=== PATIENT | female | born 1950 | race Hispanic/Latino ===

== ENCOUNTER 2016-11-02 12:08 | Inpatient (IN) | payer MEDICARE, OTHER ==
[2016-11-02 12:20] VITALS: BMI 21.7
--- NOTE | 2016-11-02 13:00 | C.PDOC ---
History Of Present Illness 66-YEAR-OLD FEMALE, PRESENTS TO THE EMERGENCY DEPARTMENT WITH COMPLAINTS OF WORSENING SHORTNESS OF BREATH X SEVERAL WEEKS. PATIENT STATES SHE SAW DR LINTON FOR SAME, STARTED LASIX 40 MG BID X 10 DAYS, FINISHED 1 WEEK AGO. PATIENT STATES SHE HAD SOB AND LEG SWELLING. SWELLING NOW IMPROVED "BUT I THINK IT'S COMING BACK" BUT STILL W HIG[place]/SOB. NO FEVER, COUGH, CP. HO LUNG CA, COPD, CHF. PS DOESNT USE HOME O2 BUT "FEELS MUCH BETTER LIKE NORMAL" W CURRENT O2 USE. EXAM MILD DIST NONTOXIC LUNGS B/L BASILAR RALES NO RETRACTIONS SPEAKING FULL SENTENCES 100% ON 4L +2 EDEMA B/L LE REMAINDE RNEG PMD DR RADHA RENO Time Seen by Provider: 11/02/16 12:32 Chief Complaint (Nursing): Shortness Of Breath History Per: Patient History/Exam Limitations: no limitations Past Medical History Reviewed: Historical Data, Nursing Documentation, Vital Signs Vital Signs: Last Vital Signs Temp 98.3 F 11/04/16 08:38 Pulse 106 H 11/04/16 08:38 Resp 26 H 11/04/16 08:38 BP 116/71 11/04/16 08:38 Pulse Ox 99 11/04/16 08:38 - Medical History PMH: Arthritis, Asthma, Bronchitis, COPD, Emphysema, Hypercholesterolemia, Hypothyroidism Surgical History: Tonsillectomy (1961) - [facility] Procedures CHEST CAGE BONE BIOPSY (11/15/13) CLOSED [PERCUTANEOUS] [NEEDLE] BIOPSY OF LUNG (05/24/13) FIBER-OPTIC BRONCHOSCOPY (08/25/13) INSERT INTERCOSTAL CATH (08/25/13) LYMPHATIC STRUCT BIOPSY (08/25/13) THORACOSCOPIC EXCISION OF LESION OR TISSUE OF LUNG (08/25/13) Family History: States: Unknown Family Hx - Social History Hx Alcohol Use: No Hx Substance Use: No - Immunization History Hx Tetanus Toxoid Vaccination: No Hx Influenza Vaccination: No Hx Pneumococcal Vaccination: No Review Of Systems Except As Marked, All Systems Reviewed And Found Negative. Constitutional: Negative for: Fever Cardiovascular: Positive for: Edema. Negative for: Chest Pain, Palpitations Respiratory: Positive for: Shortness of Breath Gastrointestinal: Negative for: Vomiting Physical Exam - Physical Exam Appears: Non-toxic, No Acute Distress Skin: Warm, Dry, No Rash Eye(s): bilateral: Normal Inspection, PERRL, EOMI Oral Mucosa: Moist Lips: Normal Appearing Neck: Normal ROM Chest: Symmetrical Cardiovascular: Rhythm Regular, No Murmur Respiratory: Rales, Other (B/L BASILAR RALES NO RETRACTIONS SPEAKING FULL SENTENCES 100% ON 4L) Extremity: Pedal Edema (2+ B/L) ED Course And Treatment - Laboratory Results Result Diagrams: 11/03/16 15:12 11/02/16 13:07 ECG: Interpreted By Me ECG Rhythm: Sinus Tachycardia Rate From EC O2 Sat by Pulse Oximetry: 100 Progress - Re-Evaluation Re-evaluation Note: 11/02/16 13:00 93% ON RA, +TACHYPNEA AND FEELING SOB. 11/02/16 13:22 D/W DR Keira RENO C/F PMD WILL ADMIT - Data Reviewed Data Reviewed: Lab, Diagnostic imaging, EKG, Old records - Critical Care Citical Care: Excluding Proc Time Critical Care Time: 90 minutes - Continuity of Care Discussed patient case with:: Patient, Family-HIPPA compliant, Covering for PMD Disposition Counseled Patient/Family Regarding: Studies Performed, Diagnosis - Disposition Disposition: HOSPITALIZED Disposition Time: 13:26 Condition: SERIOUS - POA Present On Arrival: None - Clinical Impression Clinical Impression: Respiratory distress, Dyspnea, Hypoxia, CHF exacerbation, Lung cancer - Scribe Statement The provider has reviewed the documentation as recorded by the Cat GIPSON All medical record entries made by the Sharynibe were at my direction and personally dictated by me. I have reviewed the chart and agree that the record accurately reflects my personal performance of the history, physical exam, medical decision making, and the department course for this patient. I have also personally directed, reviewed, and agree with the discharge instructions and disposition. Decision To Admit - Pt Status Changed To: Hospital Disposition Of: Inpatient - Admit Certification Admit to Inpatient:: After my assessment, the patient will require hospitalization for at least two midnights. This is because of the severity of symptoms shown, intensity of services needed, and/or the medical risk in this patient being treated as an outpatient. - InPatient: Physician Admission Certification: I certify that this patient requires 2 or more midnights of care for the following reason:: SEE NOTE - . Bed Request Type: Telemetry Admitting Physician: Jayeshkuma S Reno Patient Diagnosis: Respiratory distress, Dyspnea, Hypoxia, CHF exacerbation, Lung cancer
[2016-11-02 13:16] LABS: BASO % 0.6 % (0.0-2.0); EOS % 2.3 % (0.0-4.0); HEMATOCRIT 20.9 % (34.0-47.0); LYMPH # 0.3 K/uL (1.0-4.3); LYMPH % 42.3 % (20.0-40.0); MEAN CORPUSCULAR HEMOGLOBIN 32.7 pg (27.0-31.0); MEAN CORPUSCULAR HGB CONC 32.9 g/dL (33.0-37.0); MEAN PLATELET VOLUME 6.3 fL (7.2-11.7); MONO # 0.2 K/uL (0.0-0.8); MONO % 38.4 % (0.0-10.0); NRBC % 0.4 % (0.0-2.0); PLATELET COUNT 203 K/uL (130-400); RED CELL DISTRIBUTION WIDTH 16.8 % (11.5-14.5)
[2016-11-02] MEDS ORDERED: cefTRIAXone IV 1 gm in Dextros 50 ML IV STA (13:17)
[2016-11-02] MEDS ORDERED: Azithromycin 500 MG in Sodium Chloride 0.9% 250 ML IV STA ×2 (13:17→16:50)
[2016-11-02 13:21] LABS: MEAN CELL VOLUME 99.5 fL (81.0-99.0); WHITE BLOOD COUNT 0.6 K/uL (4.8-10.8)
[2016-11-02 13:23] LABS: CHLORIDE 95 mmol/L (98-107); POTASSIUM 4.2 mmol/L (3.6-5.2); SODIUM 135 mmol/L (132-148)
[2016-11-02 13:25] LABS: GFR AFRICAN-AMERICAN 45
[2016-11-02 13:26] LABS: ALB/GLOB RATIO 0.8 (1.0-2.1); ALKALINE PHOSPHATASE 56 U/L (38-126); ALT/SGPT 25 U/L (9-52); AST/SGOT 31 U/L (14-36); BILIRUBIN,TOTAL 0.4 mg/dL (0.2-1.3); BLOOD UREA NITROGEN 27 mg/dL (7-17); CARBON DIOXIDE 31 mmol/L (22-30); GLUCOSE,RANDOM 76 mg/dL (65-105); TOTAL PROTEIN 7.1 g/dL (6.3-8.3)
[2016-11-02 13:27] LABS: CALCIUM 8.4 mg/dl (8.6-10.4)
[2016-11-02] MEDS ORDERED: cefTRIAXone IV 1 gm in Dextros 50 ML IVPB ONE (13:35)
[2016-11-02 14:10] LABS: EOSINOPHIL 4 % (0-4); NEUTROPHIL 12 % (50-75); TOTAL CELLS COUNTED 50
[2016-11-02 14:10] LABS: VENOUS BLOOD GAS BASE EXCESS 5.6 mmol/L (0.0-2.0); VENOUS BLOOD GAS PCO2 62 mmHg (40-60); VENOUS BLOOD PH 7.34 (7.32-7.43)
--- NOTE | 2016-11-02 14:31 | RAD ---
PROCEDURE: CHEST RADIOGRAPH, 1 VIEW HISTORY: Shortness of breath COMPARISON: 08/27/2013 FINDINGS: LUNGS: Moderate loculated right pleural effusion. Lobulated pleural thickening along the right darnell thorax. Elevated right hemidiaphragm. Consolidative changes in the right mid to lower lung zone. Mild venous congestion. PLEURA: As above. CARDIOVASCULAR: Cardiomegaly. OSSEOUS STRUCTURES: Degenerative changes in the spine and shoulders VISUALIZED UPPER ABDOMEN: Grossly preserved. OTHER FINDINGS: Surgical clips in the right axilla. Left central venous catheter tip extending to the cavoatrial junction. IMPRESSION: Moderate loculated right pleural effusion. Lobulated pleural thickening along the right darnell thorax. Elevated right hemidiaphragm. Consolidative changes in the right mid to lower lung zone. Mild venous congestion.
[2016-11-02] MEDS ORDERED: Albuterol-Ipratrop 3 mg / 0.5 (3 ml) UD INH PRN (14:43)
[2016-11-02] MEDS ORDERED: Acetaminophen-Codeine 300/30 mg Tab PO PRN (14:43)
[2016-11-02] MEDS ORDERED: Albuterol-Ipratrop 20 mcg/actuation (4 g) IH PRN (14:43)
[2016-11-02 14:46] LABS: RBC URINE 1 /hpf (0-3); URINE BILIRUBIN NEGATIVE (NEGATIVE); URINE BLOOD NEGATIVE (NEGATIVE); URINE COLOR Straw (YELLOW); URINE GLUCOSE (UA) NORMAL (Normal); URINE KETONE NEGATIVE (NEGATIVE); URINE LEUKOCYTE ESTERASE NEG Leu/uL (Negative); URINE PROTEIN NEGATIVE (NEGATIVE); URINE UROBILINOGEN NORMAL mg/dL (0.2-1.0); WBC URINE < 1 /hpf (0-5)
--- NOTE | 2016-11-02 15:07 | CP.PCM.CON ---
History of Present Illness - History of Present Illness History of Present Illness: 66 year old with lung CA followed by onc. presented with SOB, leg edema, for echo Review of Systems - Review of Systems Systems not reviewed;Unavailable: Acuity of Condition - Constitutional Constitutional: Anorexia, Weakness - EENT Eyes: absent: Discharge Ears: absent: Ear Discharge, Dizziness Nose/Mouth/Throat: absent: Epistaxis - Cardiovascular Cardiovascular: Chest Pain, Dyspnea. absent: Acrocyanosis, Diaphoresis, Palpitations, Syncope - Respiratory Respiratory: Cough, Dyspnea. absent: Hemoptysis - Gastrointestinal Gastrointestinal: absent: Abdominal Pain, Diarrhea, Vomiting - Genitourinary Genitourinary: absent: Change in Urinary Stream Past Patient History - Past Medical History & Family History Past Medical History?: Yes - Past Social History Smoking Status: Former Smoker - CARDIAC Hx Hypercholesterolemia: Yes - PULMONARY Hx Asthma: Yes Hx Bronchitis: Yes Hx Chronic Obstructive Pulmonary Disease (COPD): Yes Hx Emphysema: Yes - NEUROLOGICAL Hx Alzheimer's Disease: No Hx Dementia: No Hx Migraine: No Hx Multiple Sclerosis: No Hx Parkinson's Disease: No Hx Seizures: No Hx Transient Ischemic Attacks (TIA): No - HEENT Hx HEENT Problems: Yes Hx Blind: No Hx Cataracts: Yes (IOL b/l) - RENAL Hx Chronic Kidney Disease: No - ENDOCRINE/METABOLIC Hx Hypothyroidism: Yes - HEMATOLOGICAL/ONCOLOGICAL Hx Blood Transfusions: No Hx Blood Transfusion Reaction: No - INTEGUMENTARY Hx Dermatological Problems: No - MUSCULOSKELETAL/RHEUMATOLOGICAL Hx Arthritis: Yes - GASTROINTESTINAL Hx Gastrointestinal Disorders: No - GENITOURINARY/GYNECOLOGICAL Hx Genitourinary Disorders: No - PSYCHIATRIC Hx Substance Use: No - SURGICAL HISTORY Hx Tonsillectomy: Yes (1961) - ANESTHESIA Hx Anesthesia Reactions: Yes (n/v) Hx Malignant Hyperthermia: No Meds Allergies/Adverse Reactions: Allergies Allergy/AdvReac Type Severity Reaction Status Date / Time SYNTHROID(COMPOUND) Allergy Severe RASH Uncoded 05/18/13 09:08 surgical tape Allergy Intermediate blisters Uncoded 08/10/13 13:06 versed AdvReac Intermediate pt reports Uncoded 08/10/13 13:06 she couldn't wake up after versed - Medications Medications: Current Medications Acetaminophen/Codeine Phosphate (Tylenol/Codeine 300 Mg/30 Mg) 1 ea PO TID PRN PRN Reason: Pain Albuterol/Ipratropium (Combivent Respimat) 2 puff IH QID PRN PRN Reason: Wheezing Albuterol/Ipratropium (Duoneb 3 Mg/0.5 Mg (3 Ml) Ud) 3 ml INH PRN PRN PRN Reason: Wheezing Cyanocobalamin (Vitamin B12 1000 Mcg Tab) 1,000 mcg PO DAILY [facility] Enoxaparin Sodium (Lovenox) 40 mg SC DAILY [facility] Folic Acid (Folic Acid) 1 mg PO DAILY [facility] Furosemide (Lasix) 40 mg IVP BID [place] Home Med (Ascorbic Acid [Vitamin C]) 500 mg PO DAILY [facility] Home Med (Aspirin [Aspirin]) 81 mg PO DAILY [facility] Home Med (Calcium [Calcium 500]) 500 mg PO DAILY [facility] Home Med (Cholecalciferol [Vitamin D3]) 1,000 iu PO DAILY [facility] Home Med (Cu/Mn/Se/Vit A/Vit C/Vit E/Z [Protegra Antioxidant]) 1 cap PO DAILY [facility] Home Med (Flaxseed Oil [Flax Oil]) 1,000 mg PO DAILY [facility] Home Med (Levetiracetam [Levetiracetam]) 500 mg PO HS [facility] Home Med (Theophylline Anhydrous [Sarabjit-24]) 400 mg PO QPM [facility] Home Med (Umeclidinium Brm/Vilanterol Tr [Anoro Ellipta 62.5-25 Mcg Inh]) 1 each IH DAILY [facility] Home Med (Vit C/Vit E/Lutein/Min/[place]-3 [Ocuvite Softgel]) 1 cap PO DAILY [facility] Ceftriaxone Sodium 1 gm/ (Dextrose) 100 mls @ 50 mls/30 min IVPB DAILY [facility] Azithromycin (Zithromax 500mg In Ns Addvantage) 500 mg in 250 mls @ 167 mls/hr IVPB Q24H [place] Levothyroxine Sodium (Synthroid) 100 mcg PO DAILY [facility] Megestrol Acetate (Megace) 40 mg PO BID [place] Rosuvastatin Calcium (Crestor) 10 mg PO QPM [facility] Vitamin E (Vitamin E 400 Units Cap) 400 intlu PO DAILY [facility] Physical Exam - Constitutional Appears: Non-toxic - Head Exam Head Exam: ATRAUMATIC - Eye Exam Eye Exam: EOMI - ENT Exam ENT Exam: Mucous Membranes Moist - Neck Exam Neck exam: Negative for: Lymphadenopathy, Thyromegaly - Respiratory Exam Respiratory Exam: Clear to Auscultation Bilateral, Rhonchi, Wheezes. absent: Rales - Cardiovascular Exam Cardiovascular Exam: REGULAR RHYTHM, Systolic Murmur - GI/Abdominal Exam GI & Abdominal Exam: Normal Bowel Sounds. absent: Organomegaly - Rectal Exam Rectal Exam: Deferred - Extremities Exam Extremities exam: Positive for: normal capillary refill. Negative for: calf tenderness - Neurological Exam Neurological exam: Alert, Oriented x3 - Psychiatric Exam Psychiatric exam: Normal Mood - Skin Skin Exam: Dry Results - Vital Signs Recent Vital Signs: Last Vital Signs Temp 98.0 F 11/02/16 14:31 Pulse 106 H 11/02/16 14:31 Resp 20 11/02/16 14:31 BP 123/80 11/02/16 14:31 Pulse Ox 100 11/02/16 14:31 - Labs Result Diagrams: 11/02/16 13:07 11/02/16 13:07 Labs: Laboratory Results - last 24 hr 11/02/16 11/02/16 11/02/16 14:05 14:25 14:29 pO2 27 L VBG pH 7.34 VBG pCO2 62 H VBG HCO3 27.9 VBG Total CO2 35.3 H VBG O2 Sat (Calc) 48.8 VBG Base Excess 5.6 H VBG Potassium 4.1 Sodium 138.0 Chloride 104.0 Glucose 72 Lactate 0.7 Venous Blood Potassium 4.1 Urine Color Straw Urine Clarity Clear Urine pH 7.0 Ur Specific [place] 1.006 Urine Protein Negative Urine Glucose (UA) Normal Urine Ketones Negative Urine Blood Negative Urine Nitrate Negative Urine Bilirubin Negative Urine Urobilinogen Normal Ur Leukocyte Esterase Neg Urine WBC (Auto) < 1 Urine RBC (Auto) 1 Ur Squamous Epith Cells 2 Blood Type A POSITIVE Assessment & Plan (1) Dyspnea Status: Acute Comment: f/u with echo improved clinically (2) Lung cancer Status: Chronic
--- NOTE | 2016-11-02 15:37 | CP.PCM.CON ---
Past Patient History - Past Medical History & Family History Past Medical History?: Yes - Past Social History Smoking Status: Former Smoker - CARDIAC Hx Hypercholesterolemia: Yes - PULMONARY Hx Asthma: Yes Hx Bronchitis: Yes Hx Chronic Obstructive Pulmonary Disease (COPD): Yes Hx Emphysema: Yes - NEUROLOGICAL Hx Alzheimer's Disease: No Hx Dementia: No Hx Migraine: No Hx Multiple Sclerosis: No Hx Parkinson's Disease: No Hx Seizures: No Hx Transient Ischemic Attacks (TIA): No - HEENT Hx HEENT Problems: Yes Hx Blind: No Hx Cataracts: Yes (IOL b/l) - RENAL Hx Chronic Kidney Disease: No - ENDOCRINE/METABOLIC Hx Hypothyroidism: Yes - HEMATOLOGICAL/ONCOLOGICAL Hx Blood Transfusions: No Hx Blood Transfusion Reaction: No - INTEGUMENTARY Hx Dermatological Problems: No - MUSCULOSKELETAL/RHEUMATOLOGICAL Hx Arthritis: Yes - GASTROINTESTINAL Hx Gastrointestinal Disorders: No - GENITOURINARY/GYNECOLOGICAL Hx Genitourinary Disorders: No - PSYCHIATRIC Hx Substance Use: No - SURGICAL HISTORY Hx Tonsillectomy: Yes (1961) - ANESTHESIA Hx Anesthesia Reactions: Yes (n/v) Hx Malignant Hyperthermia: No Meds Allergies/Adverse Reactions: Allergies Allergy/AdvReac Type Severity Reaction Status Date / Time SYNTHROID(COMPOUND) Allergy Severe RASH Uncoded 05/18/13 09:08 surgical tape Allergy Intermediate blisters Uncoded 08/10/13 13:06 versed AdvReac Intermediate pt reports Uncoded 08/10/13 13:06 she couldn't wake up after versed - Medications Medications: Current Medications Acetaminophen/Codeine Phosphate (Tylenol/Codeine 300 Mg/30 Mg) 1 ea PO TID PRN PRN Reason: Pain Albuterol/Ipratropium (Combivent Respimat) 2 puff IH QID PRN PRN Reason: Wheezing Albuterol/Ipratropium (Duoneb 3 Mg/0.5 Mg (3 Ml) Ud) 3 ml INH PRN PRN PRN Reason: Wheezing Cyanocobalamin (Vitamin B12 1000 Mcg Tab) 1,000 mcg PO DAILY [facility] Enoxaparin Sodium (Lovenox) 40 mg SC DAILY [facility] Folic Acid (Folic Acid) 1 mg PO DAILY [facility] Furosemide (Lasix) 40 mg IVP BID [facility] Home Med (Ascorbic Acid [Vitamin C]) 500 mg PO DAILY [facility] Home Med (Aspirin [Aspirin]) 81 mg PO DAILY [facility] Home Med (Calcium [Calcium 500]) 500 mg PO DAILY [facility] Home Med (Cholecalciferol [Vitamin D3]) 1,000 iu PO DAILY [facility] Home Med (Cu/Mn/Se/Vit A/Vit C/Vit E/Z [Protegra Antioxidant]) 1 cap PO DAILY [place] Home Med (Flaxseed Oil [Flax Oil]) 1,000 mg PO DAILY [place] Home Med (Levetiracetam [Levetiracetam]) 500 mg PO HS [place] Home Med (Theophylline Anhydrous [Sarabjit-24]) 400 mg PO QPM [place] Home Med (Umeclidinium Brm/Vilanterol Tr [Anoro Ellipta 62.5-25 Mcg Inh]) 1 each IH DAILY [facility] Home Med (Vit C/Vit E/Lutein/Min/[place]-3 [Ocuvite Softgel]) 1 cap PO DAILY [place] Ceftriaxone Sodium 1 gm/ (Dextrose) 100 mls @ 50 mls/30 min IVPB DAILY [place] Azithromycin (Zithromax 500mg In Ns Addvantage) 500 mg in 250 mls @ 167 mls/hr IVPB Q24H [place] Levothyroxine Sodium (Synthroid) 100 mcg PO DAILY [place] Megestrol Acetate (Megace) 40 mg PO BID [place] Rosuvastatin Calcium (Crestor) 10 mg PO QPM [place] Vitamin E (Vitamin E 400 Units Cap) 400 intlu PO DAILY [facility] Results - Vital Signs Recent Vital Signs: Last Vital Signs Temp 98.0 F 11/02/16 14:31 Pulse 106 H 11/02/16 14:31 Resp 20 11/02/16 14:31 BP 123/80 11/02/16 14:31 Pulse Ox 100 11/02/16 14:31 - Labs Result Diagrams: 11/02/16 13:07 11/02/16 13:07 Labs: Laboratory Results - last 24 hr 11/02/16 11/02/16 11/02/16 14:05 14:25 14:29 pO2 27 L VBG pH 7.34 VBG pCO2 62 H VBG HCO3 27.9 VBG Total CO2 35.3 H VBG O2 Sat (Calc) 48.8 VBG Base Excess 5.6 H VBG Potassium 4.1 Sodium 138.0 Chloride 104.0 Glucose 72 Lactate 0.7 Venous Blood Potassium 4.1 Urine Color Straw Urine Clarity Clear Urine pH 7.0 Ur Specific [place] 1.006 Urine Protein Negative Urine Glucose (UA) Normal Urine Ketones Negative Urine Blood Negative Urine Nitrate Negative Urine Bilirubin Negative Urine Urobilinogen Normal Ur Leukocyte Esterase Neg Urine WBC (Auto) < 1 Urine RBC (Auto) 1 Ur Squamous Epith Cells 2 Blood Type A POSITIVE Antibody Screen Negative
[2016-11-02] MEDS ORDERED: THEOPHYLLINE ANHYDROUS 400 MG PO SCH (18:00)
[2016-11-02] MEDS: Theophylline 200mg ER 24 hrs Cap PO SCH (21:00)
--- NOTE | 2016-11-02 21:14 | CP.PCM.HP ---
Past Patient History - Past Medical History & Family History Past Medical History?: Yes - Past Social History Smoking Status: Former Smoker - CARDIAC Hx Hypercholesterolemia: Yes - PULMONARY Hx Asthma: Yes Hx Bronchitis: Yes Hx Chronic Obstructive Pulmonary Disease (COPD): Yes Hx Emphysema: Yes - NEUROLOGICAL Hx Alzheimer's Disease: No Hx Dementia: No Hx Migraine: No Hx Multiple Sclerosis: No Hx Parkinson's Disease: No Hx Seizures: No Hx Transient Ischemic Attacks (TIA): No - HEENT Hx HEENT Problems: Yes Hx Blind: No Hx Cataracts: Yes (IOL b/l) - RENAL Hx Chronic Kidney Disease: No - ENDOCRINE/METABOLIC Hx Hypothyroidism: Yes - HEMATOLOGICAL/ONCOLOGICAL Hx Blood Transfusions: No Hx Blood Transfusion Reaction: No - INTEGUMENTARY Hx Dermatological Problems: No - MUSCULOSKELETAL/RHEUMATOLOGICAL Hx Arthritis: Yes - GASTROINTESTINAL Hx Gastrointestinal Disorders: No - GENITOURINARY/GYNECOLOGICAL Hx Genitourinary Disorders: No - PSYCHIATRIC Hx Substance Use: No - SURGICAL HISTORY Hx Tonsillectomy: Yes (1961) - ANESTHESIA Hx Anesthesia Reactions: Yes (n/v) Hx Malignant Hyperthermia: No Meds Allergies/Adverse Reactions: Allergies Allergy/AdvReac Type Severity Reaction Status Date / Time SYNTHROID(COMPOUND) Allergy Severe RASH Uncoded 05/18/13 09:08 surgical tape Allergy Intermediate blisters Uncoded 08/10/13 13:06 versed AdvReac Intermediate pt reports Uncoded 08/10/13 13:06 she couldn't wake up after versed Results - Vital Signs Recent Vital Signs: Last Vital Signs Temp 97.3 F L 11/02/16 19:49 Pulse 104 H 11/02/16 19:49 Resp 18 11/02/16 19:49 BP 110/70 11/02/16 19:49 Pulse Ox 100 11/02/16 16:34 - Labs Result Diagrams: 11/02/16 13:07 11/02/16 13:07 Labs: Laboratory Results - last 24 hr 11/02/16 11/02/16 11/02/16 14:05 14:25 14:29 pO2 27 L VBG pH 7.34 VBG pCO2 62 H VBG HCO3 27.9 VBG Total CO2 35.3 H VBG O2 Sat (Calc) 48.8 VBG Base Excess 5.6 H VBG Potassium 4.1 Sodium 138.0 Chloride 104.0 Glucose 72 Lactate 0.7 Venous Blood Potassium 4.1 Urine Color Straw Urine Clarity Clear Urine pH 7.0 Ur Specific [place] 1.006 Urine Protein Negative Urine Glucose (UA) Normal Urine Ketones Negative Urine Blood Negative Urine Nitrate Negative Urine Bilirubin Negative Urine Urobilinogen Normal Ur Leukocyte Esterase Neg Urine WBC (Auto) < 1 Urine RBC (Auto) 1 Ur Squamous Epith Cells 2 Blood Type A POSITIVE Antibody Screen Negative
[2016-11-03] MEDS: Enoxaparin 40 mg Syringe SC SCH (09:56)
[2016-11-03] MEDS ORDERED: Levothyroxine 100 MCG TAB PO SCH (10:00)
[2016-11-03] MEDS ORDERED: cefTRIAXone IV 1 gm in Dextros 1 GM in Dextrose 5% In Water 50 ML IVPB SCH (10:00)
[2016-11-03] MEDS ORDERED: VIT E PO SCH ×2 (10:00)
[2016-11-03] MEDS ORDERED: Ergocalciferol 50,000 Intl Units Cap PO SCH (10:00)
[2016-11-03] MEDS ORDERED: LUTEIN PO SCH ×2 (10:00)
[2016-11-03] MEDS ORDERED: VIT C PO SCH ×2 (10:00)
[2016-11-03] MEDS ORDERED: [UNRECOGNIZED DRUG - MIXTURE] PO SCH ×2 (10:00)
[2016-11-03] MEDS ORDERED: Home Med 1 UNIT (Umeclidinium Brm/Vilanterol Tr [Anoro Ellipta 62.5-25 Mcg Inh] 1 EACH) IH SCH ×2 (10:00)
[2016-11-03] MEDS ORDERED: FLAXSEED OIL 1000 MG PO SCH ×2 (10:00)
[2016-11-03] MEDS ORDERED: OMEGA PO SCH ×2 (10:00)
--- NOTE | 2016-11-03 10:59 | CT ---
CT chest History: Lung cancer. Loculated right pleural effusion. Comparison: X-ray dated 08/26/2013 Technique: Multiple contiguous axial images were performed through the chest without the use of intravenous contrast. Subsequently, sagittal and coronal reformatted images were obtained. This CT exam was performed using one or more of the following dose reduction techniques: Automated exposure control, adjustment of the mA and/or kV according to patient size, and/or use of iterative reconstruction technique. Findings: Right lung: Hyperinflation suggestive for COPD and or emphysematous changes. Within the anterior aspect of the right middle lobe, best seen on series 3, image 50 there is a lobulated pleural-based mass/mass like opacity measuring 3.2 x 1.6 centimeters which may represent underlying neoplasm. Clinical correlation and or correlation with soft tissue biopsy may be helpful if clinically indicated. At this level and superior to this level there is a suggestion of postsurgical scarring and or consolidation. Adjacent satellite pulmonary nodules at this level measure up to 5 millimeters as demonstrated on series 3, image 42. More inferiorly small pulmonary nodules measure up to 3 millimeters on series 3, image 46. Diffuse loculated pleural thickening throughout the right darnell thorax extending from the apex to the base. At the base there is a more focal loculated pleural effusion which extends superomedially along the anterior darnell thorax. Ovoid consolidative changes and or loculated pleural thickening of the fissure within the right lung measuring 2.4 x 1.1 centimeters seen on series 3 image 49. Dense consolidative changes at the right lung base suggestive for infiltrate and or atelectasis. 3 millimeter subpleural pulmonary nodule along the fissure within the posterior aspect of the right upper lobe on series 3, image 24. Prominent pleural thickening along the fissure laterally throughout its course. 5 millimeter pulmonary nodule within inferior right middle lobe on series 3, image 61. 4 millimeter pulmonary nodule within the posterior aspect of the right lower lobe on series 3, image 61. 3 millimeter pulmonary nodule within the right lower lobe anteriorly on series 3, image 49. Left lung: Hyperinflation suggestive for COPD and or emphysematous changes. Innumerable pulmonary nodules throughout the visualized left lung for example in the left upper lobe there is a 2.7 centimeter subpleural nodule on series 3, image 39 as well as a 2.2 centimeter nodule more anteriorly within the left upper lobe on series 3 image 49. Additional multiple pulmonary nodules are seen throughout the left upper lobe. In the left lower lobe there are innumerable pulmonary nodules for example on series 3, image 75 more anteriorly in the left lower lobe measuring 2 millimeters and more posteriorly measuring 3 millimeters. These may represent underlying metastatic disease. Clinical correlation. Trachea thru central airways are patent. No significant axillary adenopathy. Calcification and plaque within the aorta. Ascending aorta is mildly prominent measuring up to 3.5 centimeters. Calcification at the aortic arch. A 1.6 centimeter prevascular lymph node noted. Coronary calcifications. Moderate pericardial effusion. As described above there is a moderate loculated right pleural effusion throughout the right darnell thorax. No significant left pleural effusion. 5 millimeter focal fat containing lesion seen within the dome of the liver, indeterminate. If splenule. Mild nodularity of the adrenal glands. Degenerative changes in the spine and shoulders. Prominent ill-defined patchy sclerosis seen within the posterior right 8th and lateral right 8th ribs concerning for sclerotic metastatic disease. Additional minimal patchy sclerosis seen within the posterior right 6th rib, nonspecific. Impression: 1. Within the anterior aspect of the right middle lobe, best seen on series 3, image 50 there is a lobulated pleural-based mass/mass like opacity measuring 3.2 x 1.6 centimeters which may represent underlying neoplasm. Clinical correlation and or correlation with soft tissue biopsy may be helpful if clinically indicated. At this level and superior to this level there is a suggestion of postsurgical scarring and or consolidation. Adjacent satellite pulmonary nodules at this level measure up to 5 millimeters as demonstrated on series 3, image 42. More inferiorly small pulmonary nodules measure up to 3 millimeters on series 3, image 46. 2. Diffuse loculated pleural thickening throughout the right darnell thorax extending from the apex to the base. At the base there is a more focal loculated pleural effusion which extends superomedially along the anterior darnell thorax. 3. Ovoid consolidative changes and or loculated pleural thickening of the fissure within the right lung measuring 2.4 x 1.1 centimeters seen on series 3 image 49. 4. Dense consolidative changes at the right lung base suggestive for infiltrate and or atelectasis. 5. 3 millimeter subpleural pulmonary nodule above. Along the fissure within the posterior aspect of the right upper lobe on series 3, image 24. Prominent pleural thickening along the fissure laterally throughout its course. 5 millimeter pulmonary nodule within inferior right middle lobe on series 3, image 61. 4 millimeter pulmonary nodule within the posterior aspect of the right lower lobe on series 3, image 61. 3 millimeter pulmonary nodule within the right lower lobe anteriorly on series 3, image 49. 6. Innumerable pulmonary nodules throughout the visualized left lung for example in the left upper lobe there is a 2.7 centimeter subpleural nodule on series 3, image 39 as well as a 2.2 centimeter nodule more anteriorly within the left upper lobe on series 3 image 49. Additional multiple pulmonary nodules are seen throughout the left upper lobe. In the left lower lobe there are innumerable pulmonary nodules for example on series 3, image 75 more anteriorly in the left lower lobe measuring 2 millimeters and more posteriorly measuring 3 millimeters. These may represent underlying metastatic disease. Clinical correlation. 7. 1.6 centimeter prevascular lymph node noted. 8. Moderate pericardial effusion. 9. Prominent ill-defined patchy sclerosis seen within the posterior right 8th and lateral right 8th ribs concerning for sclerotic metastatic disease. Additional minimal patchy sclerosis seen within the posterior right 6th rib, nonspecific. Additional findings as above.
[2016-11-03] MEDS: Levothyroxine 50 MCG TAB PO SCH (11:04)
--- NOTE | 2016-11-03 12:39 | CP.PCM.CON ---
History of Present Illness - History of Present Illness History of Present Illness: 66-YEAR-OLD FEMALE, PRESENTS TO THE EMERGENCY DEPARTMENT WITH COMPLAINTS OF WORSENING SHORTNESS OF BREATH X SEVERAL WEEKS. PATIENT STATES SHE SAW DR LINTON FOR SAME, STARTED LASIX 40 MG BID X 10 DAYS, FINISHED 1 WEEK AGO. PATIENT STATES SHE HAD SOB AND LEG SWELLING. SWELLING NOW IMPROVED "BUT I THINK IT'S COMING BACK" BUT STILL W HIGGINBOTHAM/SOB. NO FEVER, COUGH, CP. HO LUNG CA, COPD, CHF. ADMITTED WITH FEBRILE NEUTROPENIA / BI-CYTOPENIA R/O SEPSIS HX LUNG CA S/P RT AND CHEMO - Medical History PMH: Arthritis, Asthma, Bronchitis, COPD, Emphysema, Hypercholesterolemia, Hypothyroidism Surgical History: Tonsillectomy (1961) - [facility] Procedures CHEST CAGE BONE BIOPSY (11/15/13) CLOSED [PERCUTANEOUS] [NEEDLE] BIOPSY OF LUNG (05/24/13) FIBER-OPTIC BRONCHOSCOPY (08/25/13) INSERT INTERCOSTAL CATH (08/25/13) LYMPHATIC STRUCT BIOPSY (08/25/13) THORACOSCOPIC EXCISION OF LESION OR TISSUE OF LUNG (08/25/13) Review of Systems - Constitutional Constitutional: As Per HPI, Anorexia, Chills, Malaise - EENT Eyes: absent: As Per HPI, Blind Spots, Blurred Vision, Change in Vision, Decreased Night Vision, Diplopia, Discharge, Dry Eye, Exophthalmos, Floaters, Irritation, Itchy Eyes, Loss of Peripheral Vision, Pain, Photophobia, Requires Corrective Lenses, Sees Flashes, Spots in Vision, Tunnel Vision, Other Visual Disturbances, Loss of Vision, Other Ears: absent: As Per HPI, Decreased Hearing, Ear Discharge, Ear Pain, Tinnitus, Abnormal Hearing, Disequilibrium, Dizziness, Other Nose/Mouth/Throat: absent: As Per HPI, Epistaxis, Nasal Congestion, Nasal Discharge, Nasal Obstruction, Nasal Trauma, Nose Pain, Post Nasal Drip, Sinus Pain, Sinus Pressure, Bleeding Gums, Change in Voice, Dental Pain, Dry Mouth, Dysphagia, Halitosis, Hoarsness, Lip Swelling, Mouth Lesions, Mouth Pain, Odynophagia, Sore Throat, Throat Swelling, Tongue Swelling, Facial Pain, Neck Pain, Neck Mass, Other - Breasts Breasts: absent: As Per HPI, Change in Shape, Mass, Pain, Nipple Discharge, Nipple Inversion, Skin Changes, Swelling, Other - Cardiovascular Cardiovascular: absent: As Per HPI, Acrocyanosis, Chest Pain, Chest Pain at Rest , Chest Pain with Activity, Claudication, Diaphoresis, Dyspnea, Dyspnea on Exertion, Edema, Irregular Heart Rhythm, Pain Radiating to Arm/Neck/Jaw, Leg Edema, Leg Ulcers, Lightheadedness, Orthopnea, Palpitations, Paroxysmal Nocturnal Dyspnea, Pedal Edema, Radiating Pain, Rapid Heart Rate, Slow Heart Rate, Syncope, Other - Respiratory Respiratory: As Per HPI, Cough, Dyspnea. absent: Hemoptysis - Gastrointestinal Gastrointestinal: absent: As Per HPI, Abdominal Pain, Belching, Bloating, Change in Bowel Habits, Change in Stool Character, Coffee Ground Emesis, Constipation, Cramping, Diarrhea, Dyspepsia, Dysphagia, Early Satiety, Excessive Flatus, Fecal Incontinence, Heartburn, Hematemesis, Hematochezia, Loose Stools, Melena, Nausea, Odynophagia, Temesmus, Vomiting, Other - Genitourinary Genitourinary: absent: As Per HPI, Change in Urinary Stream, Difficulty Urinating, Dysuria, Flank Pain, Hematuria, Pyuria, Nocturia, Urinary Incontinence, Urinary Frequency, Urinary Hesitance, Urinary Urgency, Voiding Freq/Small Amts, Freq UTI, Hx Renal/Bladder Calculi, Hx /Renal Surgery, Bladder Distension, Other - Reproductive: Female Reproductive:Female: absent: As Per HPI, Amenorrhea, Amenorrhea/ Control, Currently Menstual, Cycle <21 Days, Cycle >35 Days, Cycle Variable, Menses 1-7 Days, Menses >/= 8 Days, Menses Variable, Cycle > 4 Weeks Between, No Menses for 6 Months, Heavy Menses, Light Menses, Normal Menses, Spotting Between Cycles , S/P Hysterectomy, Menopausal, Post Menopausal, Premenarche, Abnormal Vaginal Bleeding, Dysmenorrhea, Dyspareunia, Genital Lesions, Genital Pruritis, Pelvic Pain, Prolapse Symptoms, Sexual Dysfunction, Vaginal Discharge, Vaginal Dryness , Vaginal Odor, Vaginal Pruritis, Other - Menstruation Menstruation: absent: As Per HPI, Amenorrhea, Amenorrhea/ Control, Currently Menstual, Cycle <21 Days, Cycle >35 Days, Cycle Variable, Menses 1-7 Days, Menses >/= 8 Days, Menses Variable, Cycle > 4 Weeks Between, No Menses for 6 Months, Heavy Menses, Light Menses, Normal Menses, Spotting Between Cycles , S/P Hysterectomy, Menopausal, Post Menopausal, Premenarche, Abnormal Vaginal Bleeding, Dysmenorrhea, Other - Musculoskeletal Musculoskeletal: As Per HPI - Integumentary Integumentary: As Per HPI - Neurological Neurological: absent: As Per HPI, Abnormal Gait, Abnormal Hearing, Abnormal Movements, Abnormal Speech, Behavioral Changes, Burning Sensations, Confusion, Convulsions, Disequilibrium, Dizziness, Numbness, Focal Weakness, Frequent Falls , Headaches, Lack of Coordination, Loss of Vision, Memory Loss, Paresthesias, Radicular Pain, Restless Legs, Sensory Deficit, Syncope, Tingling, Tremor, Vertigo, Weakness, Other Visual Disturbances, Other - Psychiatric Psychiatric: absent: As Per HPI, Abnormal Sleep Pattern, Anhedonia, Anxiety, Auditory Hallucinations, Behavioral Changes, Change in Appetite, Change in Libido, Confusion, Depression, Difficulty Concentrating, Hallucinations, Homicidal Ideation, Hopelessness, Irritability, Memory Loss, Mood Swings, Panic Attacks, Paranoia, Suicidal Ideation, Visual Hallucinations, Tactile Hallucinations, Other - Endocrine Endocrine: absent: As Per HPI, Change in Body Appearance, Change in Libido, Cold Intolorance, Deepening of Voice, Excessive Sweating, Fatigue, Flushing, Heat Intolorance, Increase in Ring/Shoe/Hat Size, Palpitations, Polydipsia, Polyphagia, Polyuria, Other - Hematologic/Lymphatic Hematologic: absent: As Per HPI, Easy Bleeding, Easy Bruising, Lymphadenopathy, Other Past Patient History - Past Medical History & Family History Past Medical History?: Yes - Past Social History Smoking Status: Former Smoker - CARDIAC Hx Hypercholesterolemia: Yes - PULMONARY Hx Asthma: Yes Hx Bronchitis: Yes Hx Chronic Obstructive Pulmonary Disease (COPD): Yes Hx Emphysema: Yes - NEUROLOGICAL Hx Alzheimer's Disease: No Hx Dementia: No Hx Migraine: No Hx Multiple Sclerosis: No Hx Parkinson's Disease: No Hx Seizures: No Hx Transient Ischemic Attacks (TIA): No - HEENT Hx HEENT Problems: Yes Hx Blind: No Hx Cataracts: Yes (IOL b/l) - RENAL Hx Chronic Kidney Disease: No - ENDOCRINE/METABOLIC Hx Hypothyroidism: Yes - HEMATOLOGICAL/ONCOLOGICAL Hx Blood Transfusions: No Hx Blood Transfusion Reaction: No - INTEGUMENTARY Hx Dermatological Problems: No - MUSCULOSKELETAL/RHEUMATOLOGICAL Hx Arthritis: Yes - GASTROINTESTINAL Hx Gastrointestinal Disorders: No - GENITOURINARY/GYNECOLOGICAL Hx Genitourinary Disorders: No - PSYCHIATRIC Hx Substance Use: No - SURGICAL HISTORY Hx Tonsillectomy: Yes (1961) - ANESTHESIA Hx Anesthesia Reactions: Yes (n/v) Hx Malignant Hyperthermia: No Meds Allergies/Adverse Reactions: Allergies Allergy/AdvReac Type Severity Reaction Status Date / Time SYNTHROID(COMPOUND) Allergy Severe RASH Uncoded 05/18/13 09:08 surgical tape Allergy Intermediate blisters Uncoded 08/10/13 13:06 versed AdvReac Intermediate pt reports Uncoded 08/10/13 13:06 she couldn't wake up after versed - Medications Medications: Current Medications Acetaminophen/Codeine Phosphate (Tylenol/Codeine 300 Mg/30 Mg) 1 ea PO TID PRN PRN Reason: Pain Albuterol/Ipratropium (Combivent Respimat) 2 puff IH QID PRN PRN Reason: Wheezing Albuterol/Ipratropium (Duoneb 3 Mg/0.5 Mg (3 Ml) Ud) 3 ml INH PRN PRN PRN Reason: Wheezing Ascorbic Acid (Vitamin C 500 Mg Tab) 500 mg PO DAILY [facility] Last Admin: 11/03/16 09:56 Dose: 500 mg Aspirin (Aspirin Chewable) 81 mg PO DAILY [facility] Last Admin: 11/03/16 09:59 Dose: 81 mg Calcium Carbonate (Oscal) 500 mg PO DAILY [facility] Last Admin: 11/03/16 09:56 Dose: 500 mg Cyanocobalamin (Vitamin B12 1000 Mcg Tab) 1,000 mcg PO DAILY [facility] Last Admin: 11/03/16 10:00 Dose: 1,000 mcg Enoxaparin Sodium (Lovenox) 40 mg SC DAILY [facility] Last Admin: 11/03/16 09:56 Dose: 40 mg Ergocalciferol (Drisdol 50,000 Intl Units Cap) 1 cap PO Q7D [facility] Last Admin: 11/03/16 09:59 Dose: 1 cap Folic Acid (Folic Acid) 1 mg PO DAILY [facility] Last Admin: 11/03/16 09:56 Dose: 1 mg Furosemide (Lasix) 40 mg IVP BID [facility] Last Admin: 11/03/16 10:05 Dose: Not Given Home Med (Cu/Mn/Se/Vit A/Vit C/Vit E/Z [Protegra Antioxidant]) 1 cap PO DAILY [facility] Home Med (Flaxseed Oil [Flax Oil]) 1,000 mg PO DAILY [facility] Home Med (Vit C/Vit E/Lutein/Min/[place]-3 [Ocuvite Softgel]) 1 cap PO DAILY [facility] Home Med (Umeclidinium Brm/Vilanterol Tr [Anoro Ellipta 62.5-25 Mcg Inh]) 1 each IH DAILY [facility] Ceftriaxone Sodium 1 gm/ (Dextrose) 100 mls @ 50 mls/30 min IVPB DAILY [facility] Last Admin: 11/03/16 10:05 Dose: 50 mls/30 min Azithromycin (Zithromax 500mg In Ns Addvantage) 500 mg in 250 mls @ 167 mls/hr IVPB Q24H [facility] Levetiracetam (Keppra) 500 mg PO HS [facility] Last Admin: 11/02/16 21:09 Dose: 500 mg Levothyroxine Sodium (Synthroid) 100 mcg PO DAILY@0630 [facility] Last Admin: 11/03/16 11:04 Dose: 100 mcg Megestrol Acetate (Megace) 40 mg PO BID [facility] Last Admin: 11/03/16 10:00 Dose: 40 mg Theophylline (Sarabjit-24) 400 mg PO QPM [facility] Last Admin: 11/02/16 21:00 Dose: 400 mg Vitamin E (Vitamin E 400 Units Cap) 400 intlu PO DAILY [facility] Last Admin: 11/03/16 10:00 Dose: 400 intlu Physical Exam - Constitutional Appears: Non-toxic, Cachectic, Chronically Ill - Head Exam Head Exam: ATRAUMATIC, NORMAL INSPECTION, NORMOCEPHALIC - Eye Exam Eye Exam: EOMI, PERRL. absent: Scleral icterus - ENT Exam ENT Exam: Mucous Membranes Dry, Normal External Ear Exam - Neck Exam Neck exam: Negative for: Lymphadenopathy, Thyromegaly - Respiratory Exam Respiratory Exam: Decreased Breath Sounds, Prolonged Expiratory Phase, Rhonchi - Cardiovascular Exam Cardiovascular Exam: REGULAR RHYTHM, +S1, +S2 - GI/Abdominal Exam GI & Abdominal Exam: Diminished Bowel Sounds, Distended, Soft. absent: Guarding , Organomegaly, Pulsatile Mass, Rebound, Rigid, Tenderness - Rectal Exam Rectal Exam: Deferred - Exam Exam: NORMAL INSPECTION - Extremities Exam Extremities exam: Positive for: pedal pulses present. Negative for: calf tenderness, pedal edema, tenderness - Back Exam Back exam: absent: CVA tenderness (L), CVA tenderness (R), paraspinal tenderness - Neurological Exam Neurological exam: Alert, CN II-XII Intact, Oriented x3, Reflexes Normal - Psychiatric Exam Psychiatric exam: Depressed - Skin Skin Exam: Dry Results - Vital Signs Recent Vital Signs: Last Vital Signs Temp 98.8 F 11/03/16 08:29 Pulse 112 H 11/03/16 08:29 Resp 20 11/03/16 08:29 BP 109/75 11/03/16 10:05 Pulse Ox 100 11/03/16 08:29 - Labs Result Diagrams: 11/02/16 13:07 11/02/16 13:07 Labs: Laboratory Results - last 24 hr 11/02/16 11/02/16 11/02/16 14:05 14:25 14:29 pO2 27 L VBG pH 7.34 VBG pCO2 62 H VBG HCO3 27.9 VBG Total CO2 35.3 H VBG O2 Sat (Calc) 48.8 VBG Base Excess 5.6 H VBG Potassium 4.1 Sodium 138.0 Chloride 104.0 Glucose 72 Lactate 0.7 Venous Blood Potassium 4.1 Urine Color Straw Urine Clarity Clear Urine pH 7.0 Ur Specific [place] 1.006 Urine Protein Negative Urine Glucose (UA) Normal Urine Ketones Negative Urine Blood Negative Urine Nitrate Negative Urine Bilirubin Negative Urine Urobilinogen Normal Ur Leukocyte Esterase Neg Urine WBC (Auto) < 1 Urine RBC (Auto) 1 Ur Squamous Epith Cells 2 Blood Type A POSITIVE Antibody Screen Negative Assessment & Plan (1) Neutropenia Status: Acute (2) Neutropenia Status: Acute (3) Anemia Status: Acute (4) Anemia Status: Acute (5) CHF exacerbation Status: Acute (6) Dyspnea Status: Acute (7) Hypoxia Status: Acute (8) Respiratory distress Status: Acute (9) Lung cancer Status: Chronic - Assessment and Plan (Free Text) Assessment: LUNG CA WITH METS LOCULATED EFFUSION R/O EMPYEMA NEUTROPENIA AND ANEMIA STARTED IV ANTIBIOTICS CHECK CULTURES MAY NEED THORACENTESIS PROGNOSIS GUARDED
[2016-11-03] MEDS: Azithromycin 500mg/250ML NS 500 MG/250 ML BAG IVPB SCH (13:51)
--- NOTE | 2016-11-03 14:46 | CP.PCM.PN ---
Subjective - Date & Time of Evaluation Date of Evaluation: 11/03/16 Time of Evaluation: 12:00 - Subjective Subjective: in bed no acute respiratory distress, improved shortness of breath, seen by infectious disease and pulmonary, follow-up with CAT scan of the chest with history of known CAD, awaiting echocardiogram. Objective - Vital Signs/Intake and Output Vital Signs (last 24 hours): Temp Pulse Resp BP Pulse Ox 98.8 F 111 H 20 109/75 100 11/03/16 08:29 11/03/16 12:49 11/03/16 08:29 11/03/16 10:05 11/03/16 08:29 Intake and Output: 11/03/16 11/03/16 06:59 18:59 Intake Total 995 Balance 995 - Medications Medications: Current Medications Acetaminophen/Codeine Phosphate (Tylenol/Codeine 300 Mg/30 Mg) 1 ea PO TID PRN PRN Reason: Pain Albuterol/Ipratropium (Combivent Respimat) 2 puff IH QID PRN PRN Reason: Wheezing Albuterol/Ipratropium (Duoneb 3 Mg/0.5 Mg (3 Ml) Ud) 3 ml INH PRN PRN PRN Reason: Wheezing Ascorbic Acid (Vitamin C 500 Mg Tab) 500 mg PO DAILY [facility] Last Admin: 11/03/16 09:56 Dose: 500 mg Aspirin (Aspirin Chewable) 81 mg PO DAILY [facility] Last Admin: 11/03/16 09:59 Dose: 81 mg Calcium Carbonate (Oscal) 500 mg PO DAILY [facility] Last Admin: 11/03/16 09:56 Dose: 500 mg Cyanocobalamin (Vitamin B12 1000 Mcg Tab) 1,000 mcg PO DAILY [facility] Last Admin: 11/03/16 10:00 Dose: 1,000 mcg Enoxaparin Sodium (Lovenox) 40 mg SC DAILY [facility] Last Admin: 11/03/16 09:56 Dose: 40 mg Ergocalciferol (Drisdol 50,000 Intl Units Cap) 1 cap PO Q7D [facility] Last Admin: 11/03/16 09:59 Dose: 1 cap Folic Acid (Folic Acid) 1 mg PO DAILY [facility] Last Admin: 11/03/16 09:56 Dose: 1 mg Furosemide (Lasix) 40 mg IVP BID [facility] Last Admin: 11/03/16 10:05 Dose: Not Given Home Med (Cu/Mn/Se/Vit A/Vit C/Vit E/Z [Protegra Antioxidant]) 1 cap PO DAILY [facility] Home Med (Flaxseed Oil [Flax Oil]) 1,000 mg PO DAILY [facility] Home Med (Vit C/Vit E/Lutein/Min/[place]-3 [Ocuvite Softgel]) 1 cap PO DAILY [facility] Home Med (Umeclidinium Brm/Vilanterol Tr [Anoro Ellipta 62.5-25 Mcg Inh]) 1 each IH DAILY [facility] Ceftriaxone Sodium 1 gm/ (Dextrose) 100 mls @ 50 mls/30 min IVPB DAILY [facility] Last Admin: 11/03/16 10:05 Dose: 50 mls/30 min Azithromycin (Zithromax 500mg In Ns Addvantage) 500 mg in 250 mls @ 167 mls/hr IVPB Q24H [facility] Last Admin: 11/03/16 13:51 Dose: 167 mls/hr Levetiracetam (Keppra) 500 mg PO HS [facility] Last Admin: 11/02/16 21:09 Dose: 500 mg Levothyroxine Sodium (Synthroid) 100 mcg PO DAILY@0630 [facility] Last Admin: 11/03/16 11:04 Dose: 100 mcg Megestrol Acetate (Megace) 40 mg PO BID [facility] Last Admin: 11/03/16 10:00 Dose: 40 mg Theophylline (Sarabjit-24) 400 mg PO QPM [facility] Last Admin: 11/02/16 21:00 Dose: 400 mg Vitamin E (Vitamin E 400 Units Cap) 400 intlu PO DAILY [facility] Last Admin: 11/03/16 10:00 Dose: 400 intlu - Constitutional Appears: Non-toxic - Head Exam Head Exam: ATRAUMATIC - Eye Exam Eye Exam: EOMI - ENT Exam ENT Exam: Mucous Membranes Moist - Neck Exam Neck Exam: absent: Lymphadenopathy, Thyromegaly - Respiratory Exam Respiratory Exam: Clear to Ausculation Bilateral. absent: Rales - Cardiovascular Exam Cardiovascular Exam: REGULAR RHYTHM, Murmur - GI/Abdominal Exam GI & Abdominal Exam: Normal Bowel Sounds. absent: Organomegaly - Rectal Exam Rectal Exam: Deferred - Extremities Exam Extremities Exam: Normal Capillary Refill. absent: Calf Tenderness - Neurological Exam Neurological Exam: Alert, Oriented x3 - Psychiatric Exam Psychiatric exam: Depressed - Skin Skin Exam: Dry Assessment and Plan (1) Dyspnea Status: Acute (2) Lung cancer Status: Chronic
[2016-11-03 15:26] LABS: BASO % 0.3 % (0.0-2.0); EOS % 2.7 % (0.0-4.0); HEMATOCRIT 24.4 % (34.0-47.0); LYMPH # 0.3 K/uL (1.0-4.3); LYMPH % 31.2 % (20.0-40.0); MEAN CORPUSCULAR HEMOGLOBIN 31.6 pg (27.0-31.0); MEAN CORPUSCULAR HGB CONC 32.9 g/dL (33.0-37.0); MEAN PLATELET VOLUME 6.2 fL (7.2-11.7); MONO # 0.3 K/uL (0.0-0.8); MONO % 26.9 % (0.0-10.0); RED CELL DISTRIBUTION WIDTH 18.9 % (11.5-14.5)
[2016-11-03 15:38] LABS: MEAN CELL VOLUME 96.3 fL (81.0-99.0); PLATELET COUNT 129 K/uL (130-400)
--- NOTE | 2016-11-03 15:42 | CP.PCM.PN ---
Subjective - Date & Time of Evaluation Date of Evaluation: 11/03/16 Time of Evaluation: 14:05 - Subjective Subjective: clinically same Objective - Vital Signs/Intake and Output Vital Signs (last 24 hours): Temp Pulse Resp BP Pulse Ox 98.8 F 111 H 20 109/75 100 11/03/16 08:29 11/03/16 12:49 11/03/16 08:29 11/03/16 10:05 11/03/16 08:29 Intake and Output: 11/03/16 11/03/16 06:59 18:59 Intake Total 995 750 Balance 995 750 - Medications Medications: Current Medications Acetaminophen/Codeine Phosphate (Tylenol/Codeine 300 Mg/30 Mg) 1 ea PO TID PRN PRN Reason: Pain Albuterol/Ipratropium (Combivent Respimat) 2 puff IH QID PRN PRN Reason: Wheezing Albuterol/Ipratropium (Duoneb 3 Mg/0.5 Mg (3 Ml) Ud) 3 ml INH PRN PRN PRN Reason: Wheezing Ascorbic Acid (Vitamin C 500 Mg Tab) [address] [facility] Last Admin: 11/03/16 09:56 Dose: 500 mg Aspirin (Aspirin Chewable) [address] [facility] Last Admin: 11/03/16 09:59 Dose: 81 mg Calcium Carbonate (Oscal) [address] [facility] Last Admin: 11/03/16 09:56 Dose: 500 mg Cyanocobalamin (Vitamin B12 1000 Mcg Tab) 1,[address] [facility] Last Admin: 11/03/16 10:00 Dose: 1,000 mcg Enoxaparin Sodium (Lovenox) [address] [facility] Last Admin: 11/03/16 09:56 Dose: 40 mg Ergocalciferol (Drisdol 50,000 Intl Units Cap) [address] [facility] Last Admin: 11/03/16 09:59 Dose: 1 cap Folic Acid (Folic Acid) [address] [facility] Last Admin: 11/03/16 09:56 Dose: 1 mg Furosemide (Lasix) [address] [facility] Last Admin: 11/03/16 10:05 Dose: Not Given Home Med (Cu/Mn/Se/Vit A/Vit C/Vit E/Z [Protegra Antioxidant]) [address] [facility] Home Med (Flaxseed Oil [Flax Oil]) 1,[address] [facility] Home Med (Vit C/Vit E/Lutein/Min/[place]-3 [Ocuvite Softgel]) [address] [facility] Home Med (Umeclidinium Brm/Vilanterol Tr [Anoro Ellipta 62.5-25 Mcg Inh]) [address] [facility] Ceftriaxone Sodium 1 gm/ (Dextrose) 100 mls @ 50 mls/[address] [facility] Last Admin: 11/03/16 10:05 Dose: 50 mls/30 min Azithromycin (Zithromax 500mg In Ns Addvantage) 500 mg in 250 mls @ 167 mls/hr IVPB Q24H [facility] Last Admin: 11/03/16 13:51 Dose: 167 mls/hr Levetiracetam (Keppra) [address] [facility] Last Admin: 11/02/16 21:09 Dose: 500 mg Levothyroxine Sodium (Synthroid) 100 mcg PO DAILY@0630 [facility] Last Admin: 11/03/16 11:04 Dose: 100 mcg Megestrol Acetate (Megace) [address] [facility] Last Admin: 11/03/16 10:00 Dose: 40 mg Theophylline (Sarabjit-24) [address] [facility] Last Admin: 11/02/16 21:00 Dose: 400 mg Vitamin E (Vitamin E 400 Units Cap) [address] [facility] Last Admin: 11/03/16 10:00 Dose: 400 intlu - Labs Labs: 11/03/16 15:12
[2016-11-03 16:41] LABS: EOSINOPHIL 2 % (0-4); NEUTROPHIL 41 % (50-75); TOTAL CELLS COUNTED 100
--- NOTE | 2016-11-03 17:24 | CP.PCM.PN ---
Objective - Vital Signs/Intake and Output Vital Signs (last 24 hours): Temp Pulse Resp BP Pulse Ox 97.7 F 101 H 20 104/69 100 11/03/16 15:59 11/03/16 16:00 11/03/16 15:59 11/03/16 15:59 11/03/16 15:59 Intake and Output: 11/03/16 11/03/16 06:59 18:59 Intake Total 995 750 Balance 995 750 - Medications Medications: Current Medications Acetaminophen/Codeine Phosphate (Tylenol/Codeine 300 Mg/30 Mg) 1 ea PO TID PRN PRN Reason: Pain Albuterol/Ipratropium (Combivent Respimat) 2 puff IH QID PRN PRN Reason: Wheezing Albuterol/Ipratropium (Duoneb 3 Mg/0.5 Mg (3 Ml) Ud) 3 ml INH PRN PRN PRN Reason: Wheezing Ascorbic Acid (Vitamin C 500 Mg Tab) 500 mg PO DAILY [facility] Last Admin: 11/03/16 09:56 Dose: 500 mg Aspirin (Aspirin Chewable) 81 mg PO DAILY [facility] Last Admin: 11/03/16 09:59 Dose: 81 mg Calcium Carbonate (Oscal) 500 mg PO DAILY [facility] Last Admin: 11/03/16 09:56 Dose: 500 mg Cyanocobalamin (Vitamin B12 1000 Mcg Tab) 1,000 mcg PO DAILY [facility] Last Admin: 11/03/16 10:00 Dose: 1,000 mcg Enoxaparin Sodium (Lovenox) 40 mg SC DAILY [facility] Last Admin: 11/03/16 09:56 Dose: 40 mg Ergocalciferol (Drisdol 50,000 Intl Units Cap) 1 cap PO Q7D [facility] Last Admin: 11/03/16 09:59 Dose: 1 cap Folic Acid (Folic Acid) 1 mg PO DAILY [facility] Last Admin: 11/03/16 09:56 Dose: 1 mg Furosemide (Lasix) 40 mg IVP BID [facility] Last Admin: 11/03/16 10:05 Dose: Not Given Home Med (Cu/Mn/Se/Vit A/Vit C/Vit E/Z [Protegra Antioxidant]) 1 cap PO DAILY [facility] Home Med (Flaxseed Oil [Flax Oil]) 1,000 mg PO DAILY [facility] Home Med (Vit C/Vit E/Lutein/Min/[place]-3 [Ocuvite Softgel]) 1 cap PO DAILY [facility] Home Med (Umeclidinium Brm/Vilanterol Tr [Anoro Ellipta 62.5-25 Mcg Inh]) 1 each IH DAILY [facility] Ceftriaxone Sodium 1 gm/ (Dextrose) 100 mls @ 50 mls/30 min IVPB DAILY [facility] Last Admin: 11/03/16 10:05 Dose: 50 mls/30 min Azithromycin (Zithromax 500mg In Ns Addvantage) 500 mg in 250 mls @ 167 mls/hr IVPB Q24H [facility] Last Admin: 11/03/16 13:51 Dose: 167 mls/hr Levetiracetam (Keppra) 500 mg PO HS [facility] Last Admin: 11/02/16 21:09 Dose: 500 mg Levothyroxine Sodium (Synthroid) 100 mcg PO DAILY@0630 [facility] Last Admin: 11/03/16 11:04 Dose: 100 mcg Megestrol Acetate (Megace) 40 mg PO BID [facility] Last Admin: 11/03/16 10:00 Dose: 40 mg Theophylline (Sarabjit-24) 400 mg PO QPM [facility] Last Admin: 11/02/16 21:00 Dose: 400 mg Vitamin E (Vitamin E 400 Units Cap) 400 intlu PO DAILY [facility] Last Admin: 11/03/16 10:00 Dose: 400 intlu - Labs Labs: 11/03/16 15:12
[2016-11-03] MEDS: Theophylline 200mg ER 24 hrs Cap PO SCH (17:32)
[2016-11-03] MEDS ORDERED: Albuterol-Ipratrop 3 mg / 0.5 (3 ml) UD INH PRN ×2 (21:15)
[2016-11-04] MEDS: Levothyroxine 50 MCG TAB PO SCH (06:11)
[2016-11-04] MEDS ORDERED: Levothyroxine 50 MCG TAB PO SCH (06:30)
[2016-11-04] MEDS: Enoxaparin 40 mg Syringe SC SCH (09:52)
[2016-11-04] MEDS: cefTRIAXone IV 1 gm in Dextros 50 ML IVPB SCH (09:53)
--- NOTE | 2016-11-04 10:47 | CP.PCM.PN ---
Subjective - Date & Time of Evaluation Date of Evaluation: 11/04/16 Time of Evaluation: 08:00 - Subjective Subjective: remains afebrile IV rx in [place] severe neutopenia + Objective - Vital Signs/Intake and Output Vital Signs (last 24 hours): Temp Pulse Resp BP Pulse Ox 98.3 F 106 H 26 H 100/65 100 11/04/16 08:38 11/04/16 08:38 11/04/16 08:38 11/04/16 09:52 11/04/16 09:16 Intake and Output: 11/04/16 11/04/16 06:59 18:59 Intake Total 150 Balance 150 - Medications Medications: Current Medications Acetaminophen/Codeine Phosphate (Tylenol/Codeine 300 Mg/30 Mg) 1 ea PO TID PRN PRN Reason: Pain Albuterol/Ipratropium (Combivent Respimat) 2 puff IH QID PRN PRN Reason: Wheezing Albuterol/Ipratropium (Duoneb 3 Mg/0.5 Mg (3 Ml) Ud) 3 ml INH Q4H PRN PRN Reason: SHORTNESS OF BREATH Ascorbic Acid (Vitamin C 500 Mg Tab) 500 mg PO DAILY [facility] Last Admin: 11/04/16 09:54 Dose: 500 mg Aspirin (Aspirin Chewable) 81 mg PO DAILY [facility] Last Admin: 11/04/16 09:52 Dose: 81 mg Calcium Carbonate (Oscal) 500 mg PO DAILY [facility] Last Admin: 11/04/16 09:53 Dose: 500 mg Cyanocobalamin (Vitamin B12 1000 Mcg Tab) 1,000 mcg PO DAILY [facility] Last Admin: 11/04/16 09:55 Dose: 1,000 mcg Enoxaparin Sodium (Lovenox) 40 mg SC DAILY [facility] Last Admin: 11/04/16 09:52 Dose: 40 mg Ergocalciferol (Drisdol 50,000 Intl Units Cap) 1 cap PO Q7D [facility] Last Admin: 11/03/16 09:59 Dose: 1 cap Folic Acid (Folic Acid) 1 mg PO DAILY [facility] Last Admin: 11/04/16 09:52 Dose: 1 mg Furosemide (Lasix) 40 mg IVP BID [facility] Last Admin: 11/04/16 09:52 Dose: Not Given Azithromycin (Zithromax 500mg In Ns Addvantage) 500 mg in 250 mls @ 167 mls/hr IVPB Q24H [facility] Last Admin: 11/03/16 13:51 Dose: 167 mls/hr Ceftriaxone Sodium (Rocephin Iv 1 Gm Duplex) 50 mls @ 50 mls/30 min IVPB DAILY [facility] Last Admin: 11/04/16 09:53 Dose: 50 mls/30 min Levetiracetam (Keppra) 500 mg PO HS [facility] Last Admin: 11/03/16 21:13 Dose: 500 mg Levothyroxine Sodium (Synthroid) 100 mcg PO DAILY@0630 [facility] Last Admin: 11/04/16 06:11 Dose: 100 mcg Megestrol Acetate (Megace) 40 mg PO BID [facility] Last Admin: 11/04/16 09:53 Dose: 40 mg Theophylline (Sarabjit-24) 400 mg PO QPM [facility] Last Admin: 11/03/16 17:32 Dose: 400 mg Vitamin E (Vitamin E 400 Units Cap) 400 intlu PO DAILY [facility] Last Admin: 11/04/16 09:54 Dose: 400 intlu - Labs Labs: 11/03/16 15:12 - Constitutional Appears: Non-toxic, Chronically Ill - Head Exam Head Exam: NORMOCEPHALIC - Eye Exam Eye Exam: PERRL Pupil Exam: NORMAL ACCOMODATION - ENT Exam ENT Exam: Mucous Membranes Dry - Respiratory Exam Respiratory Exam: Decreased Breath Sounds, Clear to Ausculation Bilateral - Cardiovascular Exam Cardiovascular Exam: REGULAR RHYTHM, +S1, +S2 - GI/Abdominal Exam GI & Abdominal Exam: Distended, Soft - Exam Exam: NORMAL INSPECTION Assessment and Plan (1) Neutropenia Status: Acute (2) Neutropenia Status: Acute (3) Anemia Status: Acute (4) Anemia Status: Acute (5) CHF exacerbation Status: Acute (6) Dyspnea Status: Acute (7) Hypoxia Status: Acute (8) Respiratory distress Status: Acute (9) Lung cancer Status: Chronic - Assessment and Plan (Free Text) Assessment: possible mets pulm on board
--- NOTE | 2016-11-04 12:04 | CP.PCM.PN ---
Subjective - Date & Time of Evaluation Date of Evaluation: 11/04/16 Time of Evaluation: 12:04 Objective - Vital Signs/Intake and Output Vital Signs (last 24 hours): Temp Pulse Resp BP Pulse Ox 98.3 F 106 H 26 H 100/65 100 11/04/16 08:38 11/04/16 08:38 11/04/16 08:38 11/04/16 09:52 11/04/16 09:16 Intake and Output: 11/04/16 11/04/16 06:59 18:59 Intake Total 150 Balance 150 - Medications Medications: Current Medications Acetaminophen/Codeine Phosphate (Tylenol/Codeine 300 Mg/30 Mg) 1 ea PO TID PRN PRN Reason: Pain Albuterol/Ipratropium (Combivent Respimat) 2 puff IH QID PRN PRN Reason: Wheezing Albuterol/Ipratropium (Duoneb 3 Mg/0.5 Mg (3 Ml) Ud) 3 ml INH Q4H PRN PRN Reason: SHORTNESS OF BREATH Ascorbic Acid (Vitamin C 500 Mg Tab) 500 mg PO DAILY [facility] Last Admin: 11/04/16 09:54 Dose: 500 mg Aspirin (Aspirin Chewable) 81 mg PO DAILY [facility] Last Admin: 11/04/16 09:52 Dose: 81 mg Calcium Carbonate (Oscal) 500 mg PO DAILY [facility] Last Admin: 11/04/16 09:53 Dose: 500 mg Cyanocobalamin (Vitamin B12 1000 Mcg Tab) 1,000 mcg PO DAILY [facility] Last Admin: 11/04/16 09:55 Dose: 1,000 mcg Enoxaparin Sodium (Lovenox) 40 mg SC DAILY [facility] Last Admin: 11/04/16 09:52 Dose: 40 mg Ergocalciferol (Drisdol 50,000 Intl Units Cap) 1 cap PO Q7D [facility] Last Admin: 11/03/16 09:59 Dose: 1 cap Folic Acid (Folic Acid) 1 mg PO DAILY [facility] Last Admin: 11/04/16 09:52 Dose: 1 mg Furosemide (Lasix) 40 mg IVP BID [facility] Last Admin: 11/04/16 09:52 Dose: Not Given Azithromycin (Zithromax 500mg In Ns Addvantage) 500 mg in 250 mls @ 167 mls/hr IVPB Q24H [facility] Last Admin: 11/03/16 13:51 Dose: 167 mls/hr Ceftriaxone Sodium (Rocephin Iv 1 Gm Duplex) 50 mls @ 50 mls/30 min IVPB DAILY [facility] Last Admin: 11/04/16 09:53 Dose: 50 mls/30 min Levetiracetam (Keppra) 500 mg PO HS [facility] Last Admin: 11/03/16 21:13 Dose: 500 mg Levothyroxine Sodium (Synthroid) 100 mcg PO DAILY@0630 [facility] Last Admin: 11/04/16 06:11 Dose: 100 mcg Megestrol Acetate (Megace) 40 mg PO BID [facility] Last Admin: 11/04/16 09:53 Dose: 40 mg Theophylline (Sarabjit-24) 400 mg PO QPM [facility] Last Admin: 11/03/16 17:32 Dose: 400 mg Vitamin E (Vitamin E 400 Units Cap) 400 intlu PO DAILY [facility] Last Admin: 11/04/16 09:54 Dose: 400 intlu - Labs Labs: 11/03/16 15:12
--- NOTE | 2016-11-04 13:18 | CP.PCM.PN ---
Subjective - Date & Time of Evaluation Date of Evaluation: 11/04/16 Time of Evaluation: 13:00 - Subjective Subjective: Echocardiogram with normal left ventricular contractility, [id number] pericardial effusion with no echocardiographic evidence of tamponade. Improved shortness of breath follow-up with pulmonary Objective - Vital Signs/Intake and Output Vital Signs (last 24 hours): Temp Pulse Resp BP Pulse Ox 98.3 F 106 H 26 H 100/65 100 11/04/16 08:38 11/04/16 08:38 11/04/16 08:38 11/04/16 09:52 11/04/16 09:16 Intake and Output: 11/04/16 11/04/16 06:59 18:59 Intake Total 150 Balance 150 - Medications Medications: Current Medications Acetaminophen/Codeine Phosphate (Tylenol/Codeine 300 Mg/30 Mg) 1 ea PO TID PRN PRN Reason: Pain Albuterol/Ipratropium (Combivent Respimat) 2 puff IH QID PRN PRN Reason: Wheezing Albuterol/Ipratropium (Duoneb 3 Mg/0.5 Mg (3 Ml) Ud) 3 ml INH Q4H PRN PRN Reason: SHORTNESS OF BREATH Ascorbic Acid (Vitamin C 500 Mg Tab) 500 mg PO DAILY [facility] Last Admin: 11/04/16 09:54 Dose: 500 mg Aspirin (Aspirin Chewable) 81 mg PO DAILY [facility] Last Admin: 11/04/16 09:52 Dose: 81 mg Calcium Carbonate (Oscal) 500 mg PO DAILY [facility] Last Admin: 11/04/16 09:53 Dose: 500 mg Cyanocobalamin (Vitamin B12 1000 Mcg Tab) 1,000 mcg PO DAILY [facility] Last Admin: 11/04/16 09:55 Dose: 1,000 mcg Enoxaparin Sodium (Lovenox) 40 mg SC DAILY [facility] Last Admin: 11/04/16 09:52 Dose: 40 mg Ergocalciferol (Drisdol 50,000 Intl Units Cap) 1 cap PO Q7D [facility] Last Admin: 11/03/16 09:59 Dose: 1 cap Folic Acid (Folic Acid) 1 mg PO DAILY [facility] Last Admin: 11/04/16 09:52 Dose: 1 mg Furosemide (Lasix) 40 mg IVP BID [facility] Last Admin: 11/04/16 09:52 Dose: Not Given Azithromycin (Zithromax 500mg In Ns Addvantage) 500 mg in 250 mls @ 167 mls/hr IVPB Q24H [facility] Last Admin: 11/03/16 13:51 Dose: 167 mls/hr Ceftriaxone Sodium (Rocephin Iv 1 Gm Duplex) 50 mls @ 50 mls/30 min IVPB DAILY [facility] Last Admin: 11/04/16 09:53 Dose: 50 mls/30 min Levetiracetam (Keppra) 500 mg PO HS [facility] Last Admin: 11/03/16 21:13 Dose: 500 mg Levothyroxine Sodium (Synthroid) 100 mcg PO DAILY@0630 [facility] Last Admin: 11/04/16 06:11 Dose: 100 mcg Megestrol Acetate (Megace) 40 mg PO BID [facility] Last Admin: 11/04/16 09:53 Dose: 40 mg Theophylline (Sarabjit-24) 400 mg PO QPM [facility] Last Admin: 11/03/16 17:32 Dose: 400 mg Vitamin E (Vitamin E 400 Units Cap) 400 intlu PO DAILY [facility] Last Admin: 11/04/16 09:54 Dose: 400 intlu - Labs Labs: 11/03/16 15:12 - Constitutional Appears: Non-toxic - Head Exam Head Exam: ATRAUMATIC - Eye Exam Eye Exam: EOMI - ENT Exam ENT Exam: Mucous Membranes Moist - Neck Exam Neck Exam: absent: Lymphadenopathy, Thyromegaly - Respiratory Exam Respiratory Exam: Clear to Ausculation Bilateral. absent: Rales - Cardiovascular Exam Cardiovascular Exam: REGULAR RHYTHM, Murmur - GI/Abdominal Exam GI & Abdominal Exam: Normal Bowel Sounds. absent: Organomegaly - Rectal Exam Rectal Exam: Deferred - Extremities Exam Extremities Exam: Normal Capillary Refill. absent: Calf Tenderness - Neurological Exam Neurological Exam: Alert, Oriented x3 - Psychiatric Exam Psychiatric exam: Normal Mood - Skin Skin Exam: Dry Assessment and Plan (1) Dyspnea Status: Acute (2) Lung cancer Status: Chronic (3) Pericardial effusion Assessment & Plan: probably with lung cancer ? radiation Status: Acute
[2016-11-04] MEDS: Azithromycin 500mg/250ML NS 500 MG/250 ML BAG IVPB SCH (13:46)
[2016-11-04] MEDS ORDERED: Albuterol-Ipratrop 3 mg / 0.5 (3 ml) UD INH PRN (14:00)
--- NOTE | 2016-11-04 17:32 | CP.PCM.PN ---
Subjective - Date & Time of Evaluation Date of Evaluation: 11/04/16 Time of Evaluation: 11:40 - Subjective Subjective: clinically same Objective - Vital Signs/Intake and Output Vital Signs (last 24 hours): Temp Pulse Resp BP Pulse Ox 97.4 F L 104 H 20 105/56 L 100 11/04/16 16:11 11/04/16 16:11 11/04/16 16:11 11/04/16 16:11 11/04/16 16:11 Intake and Output: 11/04/16 11/04/16 06:59 18:59 Intake Total 150 Balance 150 - Medications Medications: Current Medications Acetaminophen/Codeine Phosphate (Tylenol/Codeine 300 Mg/30 Mg) 1 ea PO TID PRN PRN Reason: Pain Albuterol/Ipratropium (Combivent Respimat) 2 puff IH QID PRN PRN Reason: Wheezing Albuterol/Ipratropium (Duoneb 3 Mg/0.5 Mg (3 Ml) Ud) 3 ml INH RQ4 PRN PRN Reason: SHORTNESS OF BREATH Ascorbic Acid (Vitamin C 500 Mg Tab) 500 mg PO DAILY [facility] Last Admin: 11/04/16 09:54 Dose: 500 mg Aspirin (Aspirin Chewable) 81 mg PO DAILY [facility] Last Admin: 11/04/16 09:52 Dose: 81 mg Calcium Carbonate (Oscal) 500 mg PO DAILY [facility] Last Admin: 11/04/16 09:53 Dose: 500 mg Cyanocobalamin (Vitamin B12 1000 Mcg Tab) 1,000 mcg PO DAILY [facility] Last Admin: 11/04/16 09:55 Dose: 1,000 mcg Enoxaparin Sodium (Lovenox) 40 mg SC DAILY [facility] Last Admin: 11/04/16 09:52 Dose: 40 mg Ergocalciferol (Drisdol 50,000 Intl Units Cap) 1 cap PO Q7D [facility] Last Admin: 11/03/16 09:59 Dose: 1 cap Folic Acid (Folic Acid) 1 mg PO DAILY [facility] Last Admin: 11/04/16 09:52 Dose: 1 mg Furosemide (Lasix) 40 mg IVP BID [facility] Last Admin: 11/04/16 09:52 Dose: Not Given Azithromycin (Zithromax 500mg In Ns Addvantage) 500 mg in 250 mls @ 167 mls/hr IVPB Q24H [facility] Last Admin: 11/04/16 13:46 Dose: 167 mls/hr Ceftriaxone Sodium (Rocephin Iv 1 Gm Duplex) 50 mls @ 50 mls/30 min IVPB DAILY [facility] Last Admin: 11/04/16 09:53 Dose: 50 mls/30 min Levetiracetam (Keppra) 500 mg PO HS [facility] Last Admin: 11/03/16 21:13 Dose: 500 mg Levothyroxine Sodium (Synthroid) 100 mcg PO DAILY@0630 [facility] Last Admin: 11/04/16 06:11 Dose: 100 mcg Megestrol Acetate (Megace) 40 mg PO BID [facility] Last Admin: 11/04/16 09:53 Dose: 40 mg Theophylline (Sarabjit-24) 400 mg PO QPM [facility] Last Admin: 11/03/16 17:32 Dose: 400 mg Vitamin E (Vitamin E 400 Units Cap) 400 intlu PO DAILY [facility] Last Admin: 11/04/16 09:54 Dose: 400 intlu - Labs Labs: 11/03/16 15:12 - Constitutional Appears: Well - Head Exam Head Exam: ATRAUMATIC, NORMAL INSPECTION, NORMOCEPHALIC - Eye Exam Eye Exam: EOMI, Normal appearance, PERRL Pupil Exam: NORMAL ACCOMODATION, PERRL - ENT Exam ENT Exam: Mucous Membranes Moist, Normal Exam - Neck Exam Neck Exam: Full ROM, Normal Inspection. absent: Lymphadenopathy - Respiratory Exam Respiratory Exam: Decreased Breath Sounds - Cardiovascular Exam Cardiovascular Exam: REGULAR RHYTHM, +S1, +S2 - GI/Abdominal Exam GI & Abdominal Exam: Soft, Diminished Bowel Sounds - Rectal Exam Rectal Exam: Deferred
--- NOTE | 2016-11-04 17:37 | CON ---
DATE: 11/04/2016 This is a 66-year-old woman with adenocarcinoma of the lung. In 1990, she had breast cancer. She agee d a lumpectomy, radiation therapy, CMF chemotherapy and tamoxifen. In 1996, she had a local recurren ce and she had a mastectomy and was put on Megace. 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 From 02/06 to 05/08, she had Alimta and carboplatin chemotherapy and at that point, the CAT PET scan showed a resolution of the l iver metastasis and lymph node metastases and so in 05/2014 she was put on Tarceva pills. She was pu t on the Tarceva from 05/2014 to 05/2015. In 05/2015, we had to radiate the thoracic 8th vertebra fo r metastasis there and we put her on one cycle of ____ and Taxotere, but she could not tolerate it a nd so we put her on Alimta and carboplatin for 4 cycles, followed by Alimta maintenance. So, she has been on the Alimta for about a year. However, now she is getting increasingly dyspneic and weak and more anemic, etc. and she finally comes into the hospital now for the increasing shortness of breath . PHYSICAL EXAMINATION: SKIN: No petechiae, no bruises. HEENT: Anicteric. NODES: None palpable in the axillary, cervical, supraclavicular or inguinal regions. LUNGS: Show diffuse scattered wheezing and rhonchi. VERTEBRA: No vertebral tenderness. HEART: S1, S2. No rubs, gallop or murmur. BREAST: No mass. ABDOMEN: Shows no liver, no spleen. EXTREMITIES: No edema. CENTRAL NERVOUS SYSTEM: No focal finding. The CAT scan that she had done basically shows that the pleural-mass, which has been radiated in the past which was 3.2 x 1.6 cm now was 2.4 cm x 1.4 cm on 07/26/16. So, in the last 3 months, she has had slowly progressing cancer. Furthermore, she also has these multiple nodules in her lungs. These ar e all under 5 mm, but there are more of them. So, she has progressive cancer on top of the underlyin g COPD, emphysema and chronic bronchitis that she will get. So, right now she is getting oxygen. Sh minesh is getting antibiotics after which we can make a decision as an outpatient with her to continue zahra motherapy. We have been talking about the immunotherapy that we would start her on and that will be the question about whether to start on immunotherapy, the ____. So, for now, it is antibiotics until she is able to go home. At time of home, she will need discharge planning possibly for oxygen and f or walker. Jah Sharon BLACKWELL cc: [phone] TT: 11/04/2016 17:36:52 Confirmation # [id number] Dictation # [id number]
--- NOTE | 2016-11-04 18:16 | CARD ---
APPROVED REPORT EXAM: Two-dimensional and M-mode echocardiogram with Doppler and color Doppler. Other Information Quality : GoodRhythm : NSR INDICATION COPD RISK FACTORS Hyperlipidemia M-Mode DIMENSIONS RVDd1.60 (2.1-3.2cm)Left Atrium (MM)3.19 (2.5-4.0cm) IVSd0.66 (0.7-1.1cm)Aortic Root2.98 (2.2-3.7cm) LVDd5.17 (4.0-5.6cm)Aortic Cusp Exc.1.91 (1.5-2.0cm) PWd0.69 (0.7-1.1cm)FS (%) 52 % LVDs2.50 (2.0-3.8cm)LVEF (%)83 (>50%) Mitral Valve MV E Qxxyngyu29.2cm/sMV A Yeceoqtw812.7cm/sE/A ratio0.6 TDI E/Lateral E'0.0E/Medial E'0.0 Tricuspid Valve TR Peak Izbvqqyp249dn/sTR Peak Gr.[id number] LEFT VENTRICLE The left ventricle is normal size. There is normal left ventricular wall thickness. The left ventricular function is normal. The left ventricular ejection fraction is within the normal range. There is normal LV segmental wall motion. Transmitral Doppler flow pattern is abnormal. RIGHT VENTRICLE The right ventricle is normal size. ATRIA The left atrium size is normal. The right atrium size is normal. AORTIC VALVE The aortic valve is normal in structure. MITRAL VALVE Mitral regurgitation is trace. TRICUSPID VALVE There is moderate tricuspid regurgitation. PERICARDIAL EFFUSION There is a small-moderate circumferential pericardial effusion. <Conclusion> Normal LV systolic function. diastolic dysfunction. Normal chamber size. Trace MR. Moderate TR. Small to moderate circumfrential pericardial effusion noted. No tamponade physiology seen.
[2016-11-04] MEDS: Theophylline 200mg ER 24 hrs Cap PO SCH (19:08)
[2016-11-04] MEDS ORDERED: Albuterol-Ipratrop 20 mcg/actuation (4 g) IH PRN (19:30)
[2016-11-05] MEDS: Levothyroxine 50 MCG TAB PO SCH (05:41)
[2016-11-05 08:45] LABS: BASO % 0.3 % (0.0-2.0); EOS % 0.7 % (0.0-4.0); HEMATOCRIT 25.1 % (34.0-47.0); LYMPH # 0.4 K/uL (1.0-4.3); LYMPH % 19.4 % (20.0-40.0); MEAN CELL VOLUME 96.1 fL (81.0-99.0); MEAN CORPUSCULAR HEMOGLOBIN 31.6 pg (27.0-31.0); MEAN CORPUSCULAR HGB CONC 32.8 g/dL (33.0-37.0); MEAN PLATELET VOLUME 6.9 fL (7.2-11.7); MONO # 0.4 K/uL (0.0-0.8); MONO % 21.4 % (0.0-10.0); NRBC % 0.2 % (0.0-2.0); RED CELL DISTRIBUTION WIDTH 17.6 % (11.5-14.5)
[2016-11-05 08:51] LABS: PLATELET COUNT 72 K/uL (130-400)
[2016-11-05 09:00] LABS: POTASSIUM 3.3 mmol/L (3.6-5.2)
[2016-11-05 09:02] LABS: BILIRUBIN,TOTAL 0.5 mg/dL (0.2-1.3)
[2016-11-05 09:03] LABS: ALB/GLOB RATIO 0.9 (1.0-2.1); TOTAL PROTEIN 7.2 g/dL (6.3-8.3)
[2016-11-05 09:04] LABS: CALCIUM 8.8 mg/dl (8.6-10.4)
[2016-11-05 09:13] LABS: MAGNESIUM 1.6 mg/dL (1.6-2.3); PHOSPHOROUS 2.7 mg/dL (2.5-4.5)
[2016-11-05] MEDS ORDERED: Potassium Chloride 20 mEq ER Tab PO STA (09:18)
[2016-11-05] MEDS: Enoxaparin 40 mg Syringe SC SCH (09:38)
[2016-11-05] MEDS: cefTRIAXone IV 1 gm in Dextros 50 ML IVPB SCH (09:38)
[2016-11-05] MEDS: Patient's Own Medication - Tablet/Capusle PO SCH (09:46)
--- NOTE | 2016-11-05 10:28 | CP.PCM.PN ---
Subjective - Date & Time of Evaluation Date of Evaluation: 11/05/16 Time of Evaluation: 10:00 - Subjective Subjective: discussed on rounds rx in progress Objective - Vital Signs/Intake and Output Vital Signs (last 24 hours): Temp Pulse Resp BP Pulse Ox 98.5 F 104 H 20 121/79 97 11/05/16 07:00 11/05/16 07:00 11/05/16 07:00 11/05/16 09:37 11/05/16 07:00 Intake and Output: 11/05/16 11/05/16 06:59 18:59 Intake Total 150 Balance 150 - Medications Medications: Current Medications Acetaminophen/Codeine Phosphate (Tylenol/Codeine 300 Mg/30 Mg) 1 ea PO TID PRN PRN Reason: Pain Albuterol/Ipratropium (Duoneb 3 Mg/0.5 Mg (3 Ml) Ud) 3 ml INH RQ4 PRN PRN Reason: SHORTNESS OF BREATH Albuterol/Ipratropium (Combivent Respimat) 2 puff IH RQID PRN PRN Reason: Wheezing Ascorbic Acid (Vitamin C 500 Mg Tab) 500 mg PO DAILY [facility] Last Admin: 11/05/16 09:37 Dose: 500 mg Aspirin (Aspirin Chewable) 81 mg PO DAILY [facility] Last Admin: 11/05/16 09:37 Dose: 81 mg Calcium Carbonate (Oscal) 500 mg PO DAILY [facility] Last Admin: 11/05/16 09:57 Dose: 500 mg Cyanocobalamin (Vitamin B12 1000 Mcg Tab) 1,000 mcg PO DAILY [facility] Last Admin: 11/05/16 09:44 Dose: 1,000 mcg Enoxaparin Sodium (Lovenox) 40 mg SC DAILY [facility] Last Admin: 11/05/16 09:38 Dose: 40 mg Ergocalciferol (Drisdol 50,000 Intl Units Cap) 1 cap PO Q7D [facility] Last Admin: 11/03/16 09:59 Dose: 1 cap Folic Acid (Folic Acid) 1 mg PO DAILY [facility] Last Admin: 11/05/16 09:37 Dose: 1 mg Furosemide (Lasix) 40 mg IVP BID [facility] Last Admin: 11/05/16 09:37 Dose: 40 mg Home Med (Patient's Own Medication) 1 tab PO DAILY [facility] Stop: 12/05/16 10:01 Last Admin: 11/05/16 09:46 Dose: 1 tab Azithromycin (Zithromax 500mg In Ns Addvantage) 500 mg in 250 mls @ 167 mls/hr IVPB Q24H [facility] Last Admin: 11/04/16 13:46 Dose: 167 mls/hr Ceftriaxone Sodium (Rocephin Iv 1 Gm Duplex) 50 mls @ 50 mls/30 min IVPB DAILY [facility] Last Admin: 11/05/16 09:38 Dose: 50 mls/30 min Levetiracetam (Keppra) 500 mg PO HS [facility] Last Admin: 11/04/16 22:04 Dose: 500 mg Levothyroxine Sodium (Synthroid) 100 mcg PO DAILY@0630 [facility] Last Admin: 11/05/16 05:41 Dose: 100 mcg Megestrol Acetate (Megace) 40 mg PO BID [facility] Last Admin: 11/05/16 09:44 Dose: 40 mg Theophylline (Sarabjit-24) 400 mg PO QPM [facility] Last Admin: 11/04/16 19:08 Dose: 400 mg Vitamin E (Vitamin E 400 Units Cap) 400 intlu PO DAILY [facility] Last Admin: 11/05/16 09:44 Dose: 400 intlu - Labs Labs: 11/05/16 08:25 11/05/16 08:25 - Constitutional Appears: Non-toxic, Cachectic, Chronically Ill - Head Exam Head Exam: NORMOCEPHALIC - Eye Exam Eye Exam: PERRL. absent: Scleral icterus - ENT Exam ENT Exam: Mucous Membranes Dry, Normal External Ear Exam - Neck Exam Neck Exam: absent: Lymphadenopathy - Respiratory Exam Respiratory Exam: Decreased Breath Sounds, Rhonchi - Cardiovascular Exam Cardiovascular Exam: REGULAR RHYTHM, +S1, +S2 Assessment and Plan (1) Neutropenia Status: Acute (2) Neutropenia Status: Acute (3) Anemia Status: Acute (4) Anemia Status: Acute (5) CHF exacerbation Status: Acute (6) Dyspnea Status: Acute (7) Hypoxia Status: Acute (8) Respiratory distress Status: Acute (9) Lung cancer Status: Chronic
[2016-11-05 10:57] LABS: NEUTROPHIL 54 % (50-75); TOTAL CELLS COUNTED 100
--- NOTE | 2016-11-05 12:57 | CP.PCM.PN ---
Subjective - Date & Time of Evaluation Date of Evaluation: 11/05/16 Time of Evaluation: 13:00 - Subjective Subjective: CT of the chest with multiple opacities probable malignancy right and left in addition to lymph nodes, questionable pleural involvement and pericardial effusion as evident on echo. Poor overall prognosis Objective - Vital Signs/Intake and Output Vital Signs (last 24 hours): Temp Pulse Resp BP Pulse Ox 98.5 F 104 H 20 121/79 97 11/05/16 07:00 11/05/16 07:00 11/05/16 07:00 11/05/16 09:37 11/05/16 07:00 Intake and Output: 11/05/16 11/05/16 06:59 18:59 Intake Total 150 Balance 150 - Medications Medications: Current Medications Acetaminophen/Codeine Phosphate (Tylenol/Codeine 300 Mg/30 Mg) 1 ea PO TID PRN PRN Reason: Pain Albuterol/Ipratropium (Duoneb 3 Mg/0.5 Mg (3 Ml) Ud) 3 ml INH RQ4 PRN PRN Reason: SHORTNESS OF BREATH Albuterol/Ipratropium (Combivent Respimat) 2 puff IH RQID PRN PRN Reason: Wheezing Ascorbic Acid (Vitamin C 500 Mg Tab) 500 mg PO DAILY [facility] Last Admin: 11/05/16 09:37 Dose: 500 mg Aspirin (Aspirin Chewable) 81 mg PO DAILY [facility] Last Admin: 11/05/16 09:37 Dose: 81 mg Calcium Carbonate (Oscal) 500 mg PO DAILY [facility] Last Admin: 11/05/16 09:57 Dose: 500 mg Cyanocobalamin (Vitamin B12 1000 Mcg Tab) 1,000 mcg PO DAILY [facility] Last Admin: 11/05/16 09:44 Dose: 1,000 mcg Enoxaparin Sodium (Lovenox) 40 mg SC DAILY [facility] Last Admin: 11/05/16 09:38 Dose: 40 mg Ergocalciferol (Drisdol 50,000 Intl Units Cap) 1 cap PO Q7D [facility] Last Admin: 11/03/16 09:59 Dose: 1 cap Folic Acid (Folic Acid) 1 mg PO DAILY [facility] Last Admin: 11/05/16 09:37 Dose: 1 mg Furosemide (Lasix) 40 mg IVP BID [facility] Last Admin: 11/05/16 09:37 Dose: 40 mg Home Med (Patient's Own Medication) 1 tab PO DAILY [facility] Stop: 12/05/16 10:01 Last Admin: 11/05/16 09:46 Dose: 1 tab Azithromycin (Zithromax 500mg In Ns Addvantage) 500 mg in 250 mls @ 167 mls/hr IVPB Q24H [facility] Last Admin: 11/04/16 13:46 Dose: 167 mls/hr Ceftriaxone Sodium (Rocephin Iv 1 Gm Duplex) 50 mls @ 50 mls/30 min IVPB DAILY [facility] Last Admin: 11/05/16 09:38 Dose: 50 mls/30 min Levetiracetam (Keppra) 500 mg PO HS [facility] Last Admin: 11/04/16 22:04 Dose: 500 mg Levothyroxine Sodium (Synthroid) 100 mcg PO DAILY@0630 [facility] Last Admin: 11/05/16 05:41 Dose: 100 mcg Megestrol Acetate (Megace) 40 mg PO BID [facility] Last Admin: 11/05/16 09:44 Dose: 40 mg Theophylline (Sarabjit-24) 400 mg PO QPM [facility] Last Admin: 11/04/16 19:08 Dose: 400 mg Vitamin E (Vitamin E 400 Units Cap) 400 intlu PO DAILY [facility] Last Admin: 11/05/16 09:44 Dose: 400 intlu - Labs Labs: 11/05/16 08:25 11/05/16 08:25 - Constitutional Appears: Non-toxic - Head Exam Head Exam: ATRAUMATIC - Eye Exam Eye Exam: EOMI - ENT Exam ENT Exam: Mucous Membranes Moist - Neck Exam Neck Exam: absent: Lymphadenopathy, Thyromegaly - Respiratory Exam Respiratory Exam: Clear to Ausculation Bilateral, Rhonchi. absent: Rales - Cardiovascular Exam Cardiovascular Exam: REGULAR RHYTHM, Murmur - GI/Abdominal Exam GI & Abdominal Exam: Normal Bowel Sounds. absent: Organomegaly - Rectal Exam Rectal Exam: Deferred - Extremities Exam Extremities Exam: Normal Capillary Refill. absent: Calf Tenderness - Neurological Exam Neurological Exam: Alert, Oriented x3 - Psychiatric Exam Psychiatric exam: Normal Mood - Skin Skin Exam: Dry Assessment and Plan (1) Dyspnea Status: Acute (2) Lung cancer Status: Chronic (3) Pericardial effusion Status: Acute
--- NOTE | 2016-11-05 13:53 | CP.PCM.PN ---
Subjective - Date & Time of Evaluation Date of Evaluation: 11/05/16 Time of Evaluation: 12:20 - Subjective Subjective: clinically same Objective - Vital Signs/Intake and Output Vital Signs (last 24 hours): Temp Pulse Resp BP Pulse Ox 98.5 F 104 H 20 121/79 97 11/05/16 07:00 11/05/16 07:00 11/05/16 07:00 11/05/16 09:37 11/05/16 07:00 Intake and Output: 11/05/16 11/05/16 06:59 18:59 Intake Total 150 Balance 150 - Medications Medications: Current Medications Acetaminophen/Codeine Phosphate (Tylenol/Codeine 300 Mg/30 Mg) 1 ea PO TID PRN PRN Reason: Pain Albuterol/Ipratropium (Duoneb 3 Mg/0.5 Mg (3 Ml) Ud) 3 ml INH RQ4 PRN PRN Reason: SHORTNESS OF BREATH Albuterol/Ipratropium (Combivent Respimat) 2 puff IH RQID PRN PRN Reason: Wheezing Ascorbic Acid (Vitamin C 500 Mg Tab) 500 mg PO DAILY [facility] Last Admin: 11/05/16 09:37 Dose: 500 mg Aspirin (Aspirin Chewable) 81 mg PO DAILY [facility] Last Admin: 11/05/16 09:37 Dose: 81 mg Calcium Carbonate (Oscal) 500 mg PO DAILY [facility] Last Admin: 11/05/16 09:57 Dose: 500 mg Cyanocobalamin (Vitamin B12 1000 Mcg Tab) 1,000 mcg PO DAILY [facility] Last Admin: 11/05/16 09:44 Dose: 1,000 mcg Enoxaparin Sodium (Lovenox) 40 mg SC DAILY [facility] Last Admin: 11/05/16 09:38 Dose: 40 mg Ergocalciferol (Drisdol 50,000 Intl Units Cap) 1 cap PO Q7D [facility] Last Admin: 11/03/16 09:59 Dose: 1 cap Folic Acid (Folic Acid) 1 mg PO DAILY [facility] Last Admin: 11/05/16 09:37 Dose: 1 mg Furosemide (Lasix) 40 mg IVP BID [facility] Last Admin: 11/05/16 09:37 Dose: 40 mg Home Med (Patient's Own Medication) 1 tab PO DAILY [facility] Stop: 12/05/16 10:01 Last Admin: 06/13/17 09:46 Dose: 1 tab Azithromycin (Zithromax 500mg In Ns Addvantage) 500 mg in 250 mls @ 167 mls/hr IVPB Q24H [facility] Last Admin: 11/04/16 13:46 Dose: 167 mls/hr Ceftriaxone Sodium (Rocephin Iv 1 Gm Duplex) 50 mls @ 50 mls/30 min IVPB DAILY [facility] Last Admin: 11/05/16 09:38 Dose: 50 mls/30 min Levetiracetam (Keppra) 500 mg PO HS [facility] Last Admin: 11/04/16 22:04 Dose: 500 mg Levothyroxine Sodium (Synthroid) 100 mcg PO DAILY@0630 [facility] Last Admin: 11/05/16 05:41 Dose: 100 mcg Megestrol Acetate (Megace) 40 mg PO BID [facility] Last Admin: 11/05/16 09:44 Dose: 40 mg Theophylline (Sarabjit-24) 400 mg PO QPM [facility] Last Admin: 11/04/16 19:08 Dose: 400 mg Vitamin E (Vitamin E 400 Units Cap) 400 intlu PO DAILY [facility] Last Admin: 11/05/16 09:44 Dose: 400 intlu - Labs Labs: 11/05/16 08:25 11/05/16 08:25 - Constitutional Appears: Well - Head Exam Head Exam: ATRAUMATIC, NORMAL INSPECTION, NORMOCEPHALIC - Eye Exam Eye Exam: EOMI, Normal appearance, PERRL Pupil Exam: NORMAL ACCOMODATION, PERRL - ENT Exam ENT Exam: Mucous Membranes Moist, Normal Exam - Neck Exam Neck Exam: Full ROM, Normal Inspection. absent: Lymphadenopathy - Respiratory Exam Respiratory Exam: Decreased Breath Sounds - Cardiovascular Exam Cardiovascular Exam: REGULAR RHYTHM, +S1, +S2 - GI/Abdominal Exam GI & Abdominal Exam: Soft, Diminished Bowel Sounds - Rectal Exam Rectal Exam: Deferred
[2016-11-05] MEDS: Azithromycin 500mg/250ML NS 500 MG/250 ML BAG IVPB SCH (14:05)
--- NOTE | 2016-11-05 14:53 | CP.PCM.CON ---
History of Present Illness - History of Present Illness History of Present Illness: Palliative consult Requested by Rowdy DIALLO Reason: Lung CA, goals of care patient is a 66 yo female admitted from home with worsened SOB X few weeks. Patient was seen by Doctor Sharon and placed on Lasix, but SOB persisted. Patient was diagnosed with pneumonia on admission and placed on Zitromax and Rocephin. Hb kamille to 8.2 from 6.9 after the blood transfusion. WBC 2.0. PMH: Lung CA, diagnosed 2012, S/P multiple chemo and Radiation therapies, COPD, CHF, asthma Soc. Hx: , lives at home, has one adopted daughter, smoked for over 20 years, one pack a day Fam: Hx: father from cancer , type not known Review of Systems - Constitutional Constitutional: Weight Loss, Weakness - EENT Eyes: absent: As Per HPI, Blind Spots, Blurred Vision, Change in Vision, Decreased Night Vision, Diplopia, Discharge, Dry Eye, Exophthalmos, Floaters, Irritation, Itchy Eyes, Loss of Peripheral Vision, Pain, Photophobia, Requires Corrective Lenses, Sees Flashes, Spots in Vision, Tunnel Vision, Other Visual Disturbances, Loss of Vision, Other Ears: absent: As Per HPI, Decreased Hearing, Ear Discharge, Ear Pain, Tinnitus, Abnormal Hearing, Disequilibrium, Dizziness, Other Nose/Mouth/Throat: absent: As Per HPI, Epistaxis, Nasal Congestion, Nasal Discharge, Nasal Obstruction, Nasal Trauma, Nose Pain, Post Nasal Drip, Sinus Pain, Sinus Pressure, Bleeding Gums, Change in Voice, Dental Pain, Dry Mouth, Dysphagia, Halitosis, Hoarsness, Lip Swelling, Mouth Lesions, Mouth Pain, Odynophagia, Sore Throat, Throat Swelling, Tongue Swelling, Facial Pain, Neck Pain, Neck Mass, Other - Breasts Breasts: absent: As Per HPI, Change in Shape, Mass, Pain, Nipple Discharge, Nipple Inversion, Skin Changes, Swelling, Other - Cardiovascular Cardiovascular: Pedal Edema - Respiratory Respiratory: Dyspnea on Exertion - Gastrointestinal Gastrointestinal: absent: As Per HPI, Abdominal Pain, Belching, Bloating, Change in Bowel Habits, Change in Stool Character, Coffee Ground Emesis, Constipation, Cramping, Diarrhea, Dyspepsia, Dysphagia, Early Satiety, Excessive Flatus, Fecal Incontinence, Heartburn, Hematemesis, Hematochezia, Loose Stools, Melena, Nausea, Odynophagia, Temesmus, Vomiting, Other - Genitourinary Genitourinary: absent: As Per HPI, Change in Urinary Stream, Difficulty Urinating, Dysuria, Flank Pain, Hematuria, Pyuria, Nocturia, Urinary Incontinence, Urinary Frequency, Urinary Hesitance, Urinary Urgency, Voiding Freq/Small Amts, Freq UTI, Hx Renal/Bladder Calculi, Hx /Renal Surgery, Bladder Distension, Other - Reproductive: Female Reproductive:Female: Post Menopausal - Menstruation Menstruation: Post Menopausal - Musculoskeletal Musculoskeletal: Muscle Weakness - Integumentary Integumentary: Swelling - Neurological Neurological: Weakness - Psychiatric Psychiatric: absent: As Per HPI, Abnormal Sleep Pattern, Anhedonia, Anxiety, Auditory Hallucinations, Behavioral Changes, Change in Appetite, Change in Libido, Confusion, Depression, Difficulty Concentrating, Hallucinations, Homicidal Ideation, Hopelessness, Irritability, Memory Loss, Mood Swings, Panic Attacks, Paranoia, Suicidal Ideation, Visual Hallucinations, Tactile Hallucinations, Other - Endocrine Endocrine: absent: As Per HPI, Change in Body Appearance, Change in Libido, Cold Intolorance, Deepening of Voice, Excessive Sweating, Fatigue, Flushing, Heat Intolorance, Increase in Ring/Shoe/Hat Size, Palpitations, Polydipsia, Polyphagia, Polyuria, Other Past Patient History - Past Medical History & Family History Past Medical History?: Yes - Past Social History Smoking Status: Former Smoker - CARDIAC Hx Hypercholesterolemia: Yes - PULMONARY Hx Chronic Obstructive Pulmonary Disease (COPD): Yes - NEUROLOGICAL Hx Alzheimer's Disease: No Hx Dementia: No Hx Migraine: No Hx Multiple Sclerosis: No Hx Parkinson's Disease: No Hx Seizures: No Hx Transient Ischemic Attacks (TIA): No - HEENT Hx HEENT Problems: Yes Hx Blind: No Hx Cataracts: Yes (IOL b/l) - RENAL Hx Chronic Kidney Disease: No - ENDOCRINE/METABOLIC Hx Hypothyroidism: Yes - HEMATOLOGICAL/ONCOLOGICAL Hx Blood Transfusions: No Hx Blood Transfusion Reaction: No - INTEGUMENTARY Hx Dermatological Problems: No - MUSCULOSKELETAL/RHEUMATOLOGICAL Hx Arthritis: Yes - GASTROINTESTINAL Hx Gastrointestinal Disorders: No - GENITOURINARY/GYNECOLOGICAL Hx Genitourinary Disorders: No - PSYCHIATRIC Hx Substance Use: No - SURGICAL HISTORY Hx Tonsillectomy: Yes (1961) - ANESTHESIA Hx Anesthesia Reactions: Yes (n/v) Hx Malignant Hyperthermia: No Meds Allergies/Adverse Reactions: Allergies Allergy/AdvReac Type Severity Reaction Status Date / Time SYNTHROID(COMPOUND) Allergy Severe RASH Uncoded 05/18/13 09:08 surgical tape Allergy Intermediate blisters Uncoded 08/10/13 13:06 versed AdvReac Intermediate pt reports Uncoded 08/10/13 13:06 she couldn't wake up after versed - Medications Medications: Current Medications Acetaminophen/Codeine Phosphate (Tylenol/Codeine 300 Mg/30 Mg) 1 ea PO TID PRN PRN Reason: Pain Albuterol/Ipratropium (Duoneb 3 Mg/0.5 Mg (3 Ml) Ud) 3 ml INH RQ4 PRN PRN Reason: SHORTNESS OF BREATH Albuterol/Ipratropium (Combivent Respimat) 2 puff IH RQID PRN PRN Reason: Wheezing Ascorbic Acid (Vitamin C 500 Mg Tab) 500 mg PO DAILY [facility] Last Admin: 11/05/16 09:37 Dose: 500 mg Aspirin (Aspirin Chewable) 81 mg PO DAILY [facility] Last Admin: 11/05/16 09:37 Dose: 81 mg Calcium Carbonate (Oscal) 500 mg PO DAILY [facility] Last Admin: 11/05/16 09:57 Dose: 500 mg Cyanocobalamin (Vitamin B12 1000 Mcg Tab) 1,000 mcg PO DAILY [facility] Last Admin: 11/05/16 09:44 Dose: 1,000 mcg Enoxaparin Sodium (Lovenox) 40 mg SC DAILY [facility] Last Admin: 11/05/16 09:38 Dose: 40 mg Ergocalciferol (Drisdol 50,000 Intl Units Cap) 1 cap PO Q7D [facility] Last Admin: 11/03/16 09:59 Dose: 1 cap Folic Acid (Folic Acid) 1 mg PO DAILY [facility] Last Admin: 11/05/16 09:37 Dose: 1 mg Furosemide (Lasix) 40 mg IVP BID [facility] Last Admin: 11/05/16 09:37 Dose: 40 mg Home Med (Patient's Own Medication) 1 tab PO DAILY [facility] Stop: 12/05/16 10:01 Last Admin: 11/05/16 09:46 Dose: 1 tab Azithromycin (Zithromax 500mg In Ns Addvantage) 500 mg in 250 mls @ 167 mls/hr IVPB Q24H [facility] Last Admin: 11/05/16 14:05 Dose: 167 mls/hr Ceftriaxone Sodium (Rocephin Iv 1 Gm Duplex) 50 mls @ 50 mls/30 min IVPB DAILY [facility] Last Admin: 11/05/16 09:38 Dose: 50 mls/30 min Levetiracetam (Keppra) 500 mg PO HS [facility] Last Admin: 11/04/16 22:04 Dose: 500 mg Levothyroxine Sodium (Synthroid) 100 mcg PO DAILY@0630 [facility] Last Admin: 11/05/16 05:41 Dose: 100 mcg Megestrol Acetate (Megace) 40 mg PO BID [facility] Last Admin: 11/05/16 09:44 Dose: 40 mg Theophylline (Sarabjit-24) 400 mg PO QPM [facility] Last Admin: 11/04/16 19:08 Dose: 400 mg Vitamin E (Vitamin E 400 Units Cap) 400 intlu PO DAILY [facility] Last Admin: 11/05/16 09:44 Dose: 400 intlu Physical Exam - Constitutional Appears: Chronically Ill - Head Exam Head Exam: ATRAUMATIC, NORMAL INSPECTION, NORMOCEPHALIC - Eye Exam Eye Exam: EOMI, Normal appearance, PERRL Pupil Exam: NORMAL ACCOMODATION, PERRL - ENT Exam ENT Exam: Mucous Membranes Moist, Normal Exam - Neck Exam Neck exam: Positive for: Normal Inspection - Respiratory Exam Respiratory Exam: Decreased Breath Sounds, NORMAL BREATHING PATTERN - Cardiovascular Exam Cardiovascular Exam: REGULAR RHYTHM, +S1, +S2 - GI/Abdominal Exam GI & Abdominal Exam: Normal Bowel Sounds, Soft - Rectal Exam Rectal Exam: Deferred - Extremities Exam Extremities exam: Positive for: pedal edema - Back Exam Back exam: NORMAL INSPECTION - Neurological Exam Neurological exam: Alert, Oriented x3 - Psychiatric Exam Psychiatric exam: Normal Affect, Normal Mood - Skin Skin Exam: Dry, Pallor Results - Vital Signs Recent Vital Signs: Last Vital Signs Temp 98.5 F 11/05/16 07:00 Pulse 104 H 11/05/16 07:00 Resp 20 11/05/16 07:00 BP 121/79 11/05/16 09:37 Pulse Ox 97 11/05/16 07:00 - Labs Result Diagrams: 11/05/16 08:25 11/05/16 08:25 Labs: Laboratory Results - last 24 hr 11/05/16 11/05/16 08:25 08:25 WBC 2.0 L* D RBC 2.61 L Hgb 8.2 L Hct 25.1 L MCV 96.1 MCH 31.6 H MCHC 32.8 L RDW 17.6 H Plt Count 72 L D MPV 6.9 L Neut % (Auto) 58.2 Lymph % (Auto) 19.4 L Craven % (Auto) 21.4 H Eos % (Auto) 0.7 Baso % (Auto) 0.3 Neut # 1.2 L Lymph # 0.4 L Craven # 0.4 Eos # 0.0 Baso # 0.0 Neutrophils % (Manual) 54 Band Neutrophils % 2 Lymphocytes % (Manual) 20 Monocytes % (Manual) 24 H Platelet Estimate Decreased L Anisocytosis (manual) Slight Sodium 142 Potassium 3.3 L Chloride 97 L Carbon Dioxide 35 H Anion Gap 13 BUN 21 H Creatinine 1.3 H Est GFR ( Amer) 49 Est GFR (Non-Af Amer) 41 Random Glucose 94 Calcium 8.8 Phosphorus 2.7 Magnesium 1.6 Total Bilirubin 0.5 AST 29 ALT 11 Alkaline Phosphatase 50 Total Protein 7.2 Albumin 3.5 Globulin 3.7 Albumin/Globulin Ratio 0.9 L Assessment & Plan - Assessment and Plan (Free Text) Assessment: Palliative consult Code status Full Code, there is no advance directive on chart, PPS 40% I reviewed medical records, all diagnostic studies, examined and interviewed patient in the bed. Code status discussed. Patient is alert, oriented X 3, appears chronically ill. Patient reports unwanted weight loss of about 60 lb since 2012 when first diagnosed with cancer. patient reports feeling much better since the admission and noticeable decrease in LEs edema. Patient is able to ambulate short distance. Lower back pain is controlled with Tylenol # 3. As per patient, lower back pain increases with mobility. Appetite fair. Denied constipation. Code status discussed. Patient is knowledgeable about Code status meaning as she worked at [employer] office for 20 years. Patient also understands her diagnosis of lung CA and its progressive nature. Patient is debiting weather to sign DNR/DNI her self or leave it to her to decide. Further we discussed patient's ability to perform ADLs at home and her expectations of this hospitalization. Patient functions at home with assistance of her . Patient was very clear that she would want to return home to her and her dog. Patient does not wish to attend [facility]. Impression * Chronically ill patient with acute episode of SOB * Pedal edema, on Lasix * Pneumonia , on Rocephin and Zitromax IV * Lower back pain controlled with Tylenol # 3 * Patient has fought the cancer for 4 years. Her goal is to continue fighting the disease. Further chemo Tx will be up to MD Herrera's decision * Moderate assistance with ADLs is needed Suggestion * Discharge to home when stable, if possible with PO antibiotics for the course of treatment * Agree with pain management * Would consider O2 at home * Pls consider the home health aid to assist patient with ADLs Palliative care will fallow up with patient as needed. Thank you for consulting Palliative Services.
--- NOTE | 2016-11-05 16:32 | CP.PCM.PN ---
Subjective - Date & Time of Evaluation Date of Evaluation: 11/05/16 Time of Evaluation: 16:25 - Subjective Subjective: 66 Y/O FEMALE WITH ADENOCARCINOMA OF THE LUNG. PMHX BREAST CANCER, LUMPECTOMY, RADIATION THERAPY, CMF CHEMO, TAMOXIFEN, MASTECTOMY, CT SHOWS PLEURAL MASS, SLOWLY PROGRESSING CANCER, ALSO MULTIPLE NODULES IN HER LUNGS, COPD, SOB, EMPHYSEMA, CHRONIC BRONCHITIS, SHE WILL NEED HOME OXYGEN DUE TO HER LUNG CA AND ALSO WHEELCHAIR. Objective - Vital Signs/Intake and Output Vital Signs (last 24 hours): Temp Pulse Resp BP Pulse Ox 97.4 F L 95 H 21 105/69 100 11/05/16 15:47 11/05/16 15:47 11/05/16 15:47 11/05/16 15:47 11/05/16 15:47 Intake and Output: 11/05/16 11/05/16 06:59 18:59 Intake Total 150 Balance 150 - Medications Medications: Current Medications Acetaminophen/Codeine Phosphate (Tylenol/Codeine 300 Mg/30 Mg) 1 ea PO TID PRN PRN Reason: Pain Albuterol/Ipratropium (Duoneb 3 Mg/0.5 Mg (3 Ml) Ud) 3 ml INH RQ4 PRN PRN Reason: SHORTNESS OF BREATH Albuterol/Ipratropium (Combivent Respimat) 2 puff IH RQID PRN PRN Reason: Wheezing Ascorbic Acid (Vitamin C 500 Mg Tab) 500 mg PO DAILY [facility] Last Admin: 11/05/16 09:37 Dose: 500 mg Aspirin (Aspirin Chewable) 81 mg PO DAILY [facility] Last Admin: 11/05/16 09:37 Dose: 81 mg Calcium Carbonate (Oscal) 500 mg PO DAILY [facility] Last Admin: 11/05/16 09:57 Dose: 500 mg Cyanocobalamin (Vitamin B12 1000 Mcg Tab) 1,000 mcg PO DAILY [facility] Last Admin: 11/05/16 09:44 Dose: 1,000 mcg Enoxaparin Sodium (Lovenox) 40 mg SC DAILY [facility] Last Admin: 11/05/16 09:38 Dose: 40 mg Ergocalciferol (Drisdol 50,000 Intl Units Cap) 1 cap PO Q7D [facility] Last Admin: 11/03/16 09:59 Dose: 1 cap Folic Acid (Folic Acid) 1 mg PO DAILY [facility] Last Admin: 11/05/16 09:37 Dose: 1 mg Furosemide (Lasix) 40 mg IVP BID [facility] Last Admin: 11/05/16 09:37 Dose: 40 mg Home Med (Patient's Own Medication) 1 tab PO DAILY [facility] Stop: 12/05/16 10:01 Last Admin: 11/05/16 09:46 Dose: 1 tab Azithromycin (Zithromax 500mg In Ns Addvantage) 500 mg in 250 mls @ 167 mls/hr IVPB Q24H [facility] Last Admin: 11/05/16 14:05 Dose: 167 mls/hr Ceftriaxone Sodium (Rocephin Iv 1 Gm Duplex) 50 mls @ 50 mls/30 min IVPB DAILY [facility] Last Admin: 11/05/16 09:38 Dose: 50 mls/30 min Levetiracetam (Keppra) 500 mg PO HS [facility] Last Admin: 11/04/16 22:04 Dose: 500 mg Levothyroxine Sodium (Synthroid) 100 mcg PO DAILY@0630 [facility] Last Admin: 11/05/16 05:41 Dose: 100 mcg Megestrol Acetate (Megace) 40 mg PO BID [facility] Last Admin: 11/05/16 09:44 Dose: 40 mg Theophylline (Sarabjit-24) 400 mg PO QPM [facility] Last Admin: 11/04/16 19:08 Dose: 400 mg Vitamin E (Vitamin E 400 Units Cap) 400 intlu PO DAILY [facility] Last Admin: 11/05/16 09:44 Dose: 400 intlu - Labs Labs: 11/05/16 08:25 11/05/16 08:25
[2016-11-05] MEDS: Theophylline 200mg ER 24 hrs Cap PO SCH (17:17)
--- NOTE | 2016-11-05 17:42 | CP.PCM.PN ---
Subjective - Date & Time of Evaluation Date of Evaluation: 11/05/16 Time of Evaluation: 17:42 Objective - Vital Signs/Intake and Output Vital Signs (last 24 hours): Temp Pulse Resp BP Pulse Ox 97.4 F L 95 H 21 106/68 100 11/05/16 15:47 11/05/16 15:47 11/05/16 15:47 11/05/16 17:18 11/05/16 15:47 Intake and Output: 11/05/16 11/05/16 06:59 18:59 Intake Total 150 Balance 150 - Medications Medications: Current Medications Acetaminophen/Codeine Phosphate (Tylenol/Codeine 300 Mg/30 Mg) 1 ea PO TID PRN PRN Reason: Pain Albuterol/Ipratropium (Duoneb 3 Mg/0.5 Mg (3 Ml) Ud) 3 ml INH RQ4 PRN PRN Reason: SHORTNESS OF BREATH Albuterol/Ipratropium (Combivent Respimat) 2 puff IH RQID PRN PRN Reason: Wheezing Ascorbic Acid (Vitamin C 500 Mg Tab) 500 mg PO DAILY [facility] Last Admin: 11/05/16 09:37 Dose: 500 mg Aspirin (Aspirin Chewable) 81 mg PO DAILY [facility] Last Admin: 11/05/16 09:37 Dose: 81 mg Calcium Carbonate (Oscal) 500 mg PO DAILY [facility] Last Admin: 11/05/16 09:57 Dose: 500 mg Cyanocobalamin (Vitamin B12 1000 Mcg Tab) 1,000 mcg PO DAILY [facility] Last Admin: 11/05/16 09:44 Dose: 1,000 mcg Enoxaparin Sodium (Lovenox) 40 mg SC DAILY [facility] Last Admin: 11/05/16 09:38 Dose: 40 mg Ergocalciferol (Drisdol 50,000 Intl Units Cap) 1 cap PO Q7D [facility] Last Admin: 11/03/16 09:59 Dose: 1 cap Folic Acid (Folic Acid) 1 mg PO DAILY [facility] Last Admin: 11/05/16 09:37 Dose: 1 mg Furosemide (Lasix) 40 mg IVP BID [facility] Last Admin: 11/05/16 17:18 Dose: 40 mg Home Med (Patient's Own Medication) 1 tab PO DAILY [facility] Stop: 12/05/16 10:01 Last Admin: 11/05/16 09:46 Dose: 1 tab Azithromycin (Zithromax 500mg In Ns Addvantage) 500 mg in 250 mls @ 167 mls/hr IVPB Q24H [facility] Last Admin: 11/05/16 14:05 Dose: 167 mls/hr Ceftriaxone Sodium (Rocephin Iv 1 Gm Duplex) 50 mls @ 50 mls/30 min IVPB DAILY [facility] Last Admin: 11/05/16 09:38 Dose: 50 mls/30 min Potassium Chloride (Potassium Chloride 20 Meq/100 Ml) 20 meq in 100 mls @ 50 mls/hr IVPB Q2 [facility] Stop: 11/05/16 23:59 Levetiracetam (Keppra) 500 mg PO HS [facility] Last Admin: 11/04/16 22:04 Dose: 500 mg Levothyroxine Sodium (Synthroid) 100 mcg PO DAILY@0630 [facility] Last Admin: 11/05/16 05:41 Dose: 100 mcg Megestrol Acetate (Megace) 40 mg PO BID [facility] Last Admin: 11/05/16 17:17 Dose: 40 mg Theophylline (Sarabjit-24) 400 mg PO QPM [facility] Last Admin: 11/05/16 17:17 Dose: 400 mg Vitamin E (Vitamin E 400 Units Cap) 400 intlu PO DAILY [facility] Last Admin: 11/05/16 09:44 Dose: 400 intlu - Labs Labs: 11/05/16 08:25 11/05/16 08:25
[2016-11-06] MEDS: Levothyroxine 50 MCG TAB PO SCH (06:22)
[2016-11-06 08:59] VITALS: O2SAT 100
[2016-11-06 09:22] LABS: LYMPH # 0.4 K/uL (1.0-4.3); MEAN CORPUSCULAR HGB CONC 32.4 g/dL (33.0-37.0); WHITE BLOOD COUNT 2.8 K/uL (4.8-10.8)
[2016-11-06 09:29] LABS: BASO % 0.3 % (0.0-2.0); EOS % 0.9 % (0.0-4.0); HEMATOCRIT 24.8 % (34.0-47.0); LYMPH % 13.3 % (20.0-40.0); MEAN CELL VOLUME 96.5 fL (81.0-99.0); MEAN CORPUSCULAR HEMOGLOBIN 31.2 pg (27.0-31.0); MEAN PLATELET VOLUME 7.4 fL (7.2-11.7); MONO # 0.4 K/uL (0.0-0.8); MONO % 15.1 % (0.0-10.0); NRBC % 0.2 % (0.0-2.0)
[2016-11-06 09:49] LABS: POTASSIUM 4.1 mmol/L (3.6-5.2)
[2016-11-06 09:51] LABS: ALB/GLOB RATIO 0.9 (1.0-2.1); BILIRUBIN,TOTAL 0.5 mg/dL (0.2-1.3); CALCIUM 8.7 mg/dl (8.6-10.4); TOTAL PROTEIN 7.3 g/dL (6.3-8.3)
[2016-11-06] MEDS: Enoxaparin 40 mg Syringe SC SCH (09:58)
[2016-11-06] MEDS: Patient's Own Medication - Tablet/Capusle PO SCH (09:59)
[2016-11-06] MEDS: cefTRIAXone IV 1 gm in Dextros 50 ML IVPB SCH (10:06)
[2016-11-06 10:25] LABS: DRAW SITE LBA; HHB 17.3 % (0.0-5.0); METHEMOGLOBIN 0.7 % (0.0-3.0)
--- NOTE | 2016-11-06 11:30 | CP.PCM.PN ---
Subjective - Date & Time of Evaluation Date of Evaluation: 11/06/16 Time of Evaluation: 11:40 - Subjective Subjective: clinically same Objective - Vital Signs/Intake and Output Vital Signs (last 24 hours): Temp Pulse Resp BP Pulse Ox 97.2 F L 112 H 20 102/69 100 11/06/16 07:20 11/06/16 07:20 11/06/16 07:20 11/06/16 09:57 11/06/16 07:20 - Medications Medications: Current Medications Acetaminophen/Codeine Phosphate (Tylenol/Codeine 300 Mg/30 Mg) 1 ea PO TID PRN PRN Reason: Pain Albuterol/Ipratropium (Duoneb 3 Mg/0.5 Mg (3 Ml) Ud) 3 ml INH RQ4 PRN PRN Reason: SHORTNESS OF BREATH Albuterol/Ipratropium (Combivent Respimat) 2 puff IH RQID PRN PRN Reason: Wheezing Ascorbic Acid (Vitamin C 500 Mg Tab) 500 mg PO DAILY [facility] Last Admin: 11/06/16 09:57 Dose: 500 mg Aspirin (Aspirin Chewable) 81 mg PO DAILY [facility] Last Admin: 11/06/16 09:57 Dose: 81 mg Calcium Carbonate (Oscal) 500 mg PO DAILY [facility] Last Admin: 11/06/16 09:57 Dose: 500 mg Cyanocobalamin (Vitamin B12 1000 Mcg Tab) 1,000 mcg PO DAILY [facility] Last Admin: 11/06/16 09:57 Dose: 1,000 mcg Ergocalciferol (Drisdol 50,000 Intl Units Cap) 1 cap PO Q7D [facility] Last Admin: 11/03/16 09:59 Dose: 1 cap Folic Acid (Folic Acid) 1 mg PO DAILY [facility] Last Admin: 11/06/16 09:57 Dose: 1 mg Furosemide (Lasix) 40 mg IVP BID [facility] Last Admin: 11/06/16 09:57 Dose: 40 mg Home Med (Patient's Own Medication) 1 tab PO DAILY [facility] Stop: 12/05/16 10:01 Last Admin: 11/06/16 09:59 Dose: 1 tab Ceftriaxone Sodium (Rocephin Iv 1 Gm Duplex) 50 mls @ 50 mls/30 min IVPB DAILY [facility] Last Admin: 11/06/16 10:06 Dose: 50 mls/30 min Azithromycin 500 mg/ Sodium (Chloride) 250 mls @ 167 mls/hr IVPB Q24H [facility] Levetiracetam (Keppra) 500 mg PO HS [facility] Last Admin: 11/05/16 21:52 Dose: 500 mg Levothyroxine Sodium (Synthroid) 100 mcg PO DAILY@0630 [facility] Last Admin: 11/06/16 06:22 Dose: 100 mcg Megestrol Acetate (Megace) 40 mg PO BID [facility] Last Admin: 11/06/16 09:57 Dose: 40 mg Theophylline (Sarabjit-24) 400 mg PO QPM [facility] Last Admin: 11/05/16 17:17 Dose: 400 mg Vitamin E (Vitamin E 400 Units Cap) 400 intlu PO DAILY [facility] Last Admin: 11/06/16 09:57 Dose: 400 intlu - Labs Labs: 11/06/16 09:16 11/06/16 09:16 - Constitutional Appears: Well - Head Exam Head Exam: ATRAUMATIC, NORMAL INSPECTION, NORMOCEPHALIC - Eye Exam Eye Exam: EOMI, Normal appearance, PERRL Pupil Exam: NORMAL ACCOMODATION, PERRL - ENT Exam ENT Exam: Mucous Membranes Moist, Normal Exam - Neck Exam Neck Exam: Full ROM, Normal Inspection. absent: Lymphadenopathy - Respiratory Exam Respiratory Exam: Decreased Breath Sounds - Cardiovascular Exam Cardiovascular Exam: REGULAR RHYTHM, +S1, +S2 - GI/Abdominal Exam GI & Abdominal Exam: Soft, Diminished Bowel Sounds - Rectal Exam Rectal Exam: Deferred
--- NOTE | 2016-11-06 12:01 | CARD ---
APPROVED REPORT EKG Measurement Heart [id number] <Conclusion> Sinus tachycardia Possible Left atrial enlargement Low voltage QRS Borderline ECG
[2016-11-06] MEDS ORDERED: Azithromycin 500 MG in Sodium Chloride 0.9% 250 ML IVPB SCH (14:45)
[2016-11-06 15:45] VITALS: BP 96/58; PULSE 92; RESP 22; TEMP 98
--- NOTE | 2016-11-06 16:39 | CP.PCM.PN ---
Subjective - Date & Time of Evaluation Date of Evaluation: 11/06/16 Time of Evaluation: 16:39 Objective - Vital Signs/Intake and Output Vital Signs (last 24 hours): Temp Pulse Resp BP Pulse Ox 98 F 92 H 22 96/58 L 100 11/06/16 15:44 11/06/16 15:44 11/06/16 15:44 11/06/16 15:44 11/06/16 15:44 - Medications Medications: Current Medications Albuterol/Ipratropium (Duoneb 3 Mg/0.5 Mg (3 Ml) Ud) 3 ml INH RQ4 PRN PRN Reason: SHORTNESS OF BREATH Albuterol/Ipratropium (Combivent Respimat) 2 puff IH RQID PRN PRN Reason: Wheezing Ascorbic Acid (Vitamin C 500 Mg Tab) 500 mg PO DAILY [facility] Last Admin: 11/06/16 09:57 Dose: 500 mg Aspirin (Aspirin Chewable) 81 mg PO DAILY [facility] Last Admin: 11/06/16 09:57 Dose: 81 mg Calcium Carbonate (Oscal) 500 mg PO DAILY [facility] Last Admin: 11/06/16 09:57 Dose: 500 mg Cyanocobalamin (Vitamin B12 1000 Mcg Tab) 1,000 mcg PO DAILY [facility] Last Admin: 11/06/16 09:57 Dose: 1,000 mcg Ergocalciferol (Drisdol 50,000 Intl Units Cap) 1 cap PO Q7D [facility] Last Admin: 11/03/16 09:59 Dose: 1 cap Folic Acid (Folic Acid) 1 mg PO DAILY [facility] Last Admin: 11/06/16 09:57 Dose: 1 mg Furosemide (Lasix) 40 mg IVP BID [facility] Last Admin: 11/06/16 09:57 Dose: 40 mg Home Med (Patient's Own Medication) 1 tab PO DAILY [facility] Stop: 12/05/16 10:01 Last Admin: 11/06/16 09:59 Dose: 1 tab Ceftriaxone Sodium (Rocephin Iv 1 Gm Duplex) 50 mls @ 50 mls/30 min IVPB DAILY [facility] Last Admin: 11/06/16 10:06 Dose: 50 mls/30 min Azithromycin 500 mg/ Sodium (Chloride) 250 mls @ 167 mls/hr IVPB Q24H [facility] Last Admin: 11/06/16 13:56 Dose: 167 mls/hr Levetiracetam (Keppra) 500 mg PO HS [facility] Last Admin: 11/05/16 21:52 Dose: 500 mg Levothyroxine Sodium (Synthroid) 100 mcg PO DAILY@0630 [facility] Last Admin: 11/06/16 06:22 Dose: 100 mcg Megestrol Acetate (Megace) 40 mg PO BID [facility] Last Admin: 11/06/16 09:57 Dose: 40 mg Theophylline (Sarabjit-24) 400 mg PO QPM [facility] Last Admin: 11/05/16 17:17 Dose: 400 mg Vitamin E (Vitamin E 400 Units Cap) 400 intlu PO DAILY [facility] Last Admin: 11/06/16 09:57 Dose: 400 intlu - Labs Labs: 11/06/16 09:16 11/06/16 09:16
[2016-11-06] MEDS: Theophylline 200mg ER 24 hrs Cap PO SCH (17:47)
== END 2016-11-06 19:10 | disposition home or self-care (01) | DRG 291 ==
LOC: C.ER 12:08 → C.9E 13:27 → C.6T 13:55
PROVIDERS: ADMIT Internal Medicine Nephrology; ATTEND Internal Medicine Nephrology
DX: I50.9 Heart failure, unspecified (principal); J18.9 Pneumonia, unspecified organism; C78.7 Secondary malignant neoplasm of liver and intrahepatic bile duct; C79.51 Secondary malignant neoplasm of bone; D70.9 Neutropenia, unspecified; I31.3 Pericardial effusion (noninflammatory); C34.90 Malignant neoplasm of unspecified part of unspecified bronchus or lung; D64.9 Anemia, unspecified; J43.9 Emphysema, unspecified; E03.9 Hypothyroidism, unspecified; J45.909 Unspecified asthma, uncomplicated; E78.00 Pure hypercholesterolemia, unspecified; Z87.891 Personal history of nicotine dependence; M19.90 Unspecified osteoarthritis, unspecified site; R09.02 Hypoxemia; I25.10 Atherosclerotic heart disease of native coronary artery without angina pectoris

== ENCOUNTER 2017-04-13 08:25 | Inpatient (IN) | payer MEDICARE, OTHER ==
[2017-04-13 08:25] VITALS: BMI 21.7
[2017-04-13] MEDS ORDERED: Sodium Chloride 0.9% 1,000 ML IV ONE ×2 (08:34→08:54)
[2017-04-13 08:46] LABS: VENOUS BLOOD GAS PCO2 109 mmHg (40-60); VENOUS BLOOD PH 7.19 (7.32-7.43)
[2017-04-13] MEDS ORDERED: Dexmedetomidine Hydrochloride 200 MCG in Sodium Chloride 0.9% 48 ML IV STA (08:49)
[2017-04-13] MEDS ORDERED: Magnesium Sulfate 1 gm in D5W 1 GM/100 ML BAG IV STA (08:52)
[2017-04-13] MEDS ORDERED: Midazolam 2 MG/2 ML VIAL IV STA (08:53)
--- NOTE | 2017-04-13 08:53 | C.PDOC ---
History Of Present Illness Patient BIBA for respiratory distress. As per EMS, woke up and found patient having difficulty breathing in bed next to him. On arrival, patient having agonal breathing, but was not pulseless. She was intubated in the field using ketamine, versed, succinylcholine; also given IV solumedrol, terbutaline, nebulizer treatments. Mag sulfate was started, however apparently calcified in the line when combines with versed and was stopped. EMS also mentioned she apparently had transient left sided facial droop during transfer from home to ambulance. PMHx- lung CA with bone mets, CHF, COPD, hypothyroidism, arthritis, hyperlipidemia Time Seen by Provider: 04/13/17 08:33 Chief Complaint (Nursing): Respiratory Distress History Per: EMS History/Exam Limitations: clinical condition Onset/Duration Of Symptoms: Unknown Current Symptoms Are (Timing): Still Present Past Medical History Reviewed: Historical Data, Nursing Documentation, Vital Signs Vital Signs: Last Vital Signs Temp 97.5 F L 04/18/17 08:30 Pulse 106 H 04/18/17 08:41 Resp 20 04/18/17 08:30 BP 164/89 H 04/18/17 08:30 Pulse Ox 98 04/18/17 08:30 - Medical History PMH: Arthritis, Bronchitis, COPD, Hypercholesterolemia, Hypothyroidism Surgical History: Tonsillectomy (1961) - [facility] Procedures CHEST CAGE BONE BIOPSY (11/15/13) CLOSED [PERCUTANEOUS] [NEEDLE] BIOPSY OF LUNG (05/24/13) FIBER-OPTIC BRONCHOSCOPY (08/25/13) INSERT INTERCOSTAL CATH (08/25/13) LYMPHATIC STRUCT BIOPSY (08/25/13) THORACOSCOPIC EXCISION OF LESION OR TISSUE OF LUNG (08/25/13) Family History: States: No Known Family Hx - Social History Hx Alcohol Use: No Hx Substance Use: No - Immunization History Hx Tetanus Toxoid Vaccination: No Hx Influenza Vaccination: No Hx Pneumococcal Vaccination: No Review Of Systems Review Of Systems: ROS cannot be obtained secondary to pt's inabilty to answer questions. Physical Exam - Physical Exam Appears: Chronically Ill, Other (unresponsive) Skin: Dry, Pale Head: Normacephalic Eye(s): bilateral: Normal Inspection, right: Other (pupils reactive right and sluggish, left pupil minimally reactive and appros 2-3mm) Oral Mucosa: Moist Chest: Other (right mastectomy scar, left portacath) Cardiovascular: Rhythm Regular (tachycardic ) Respiratory: Rales (B/L bases), Other (assisted ventilation, equal breath sounds B/L) Gastrointestinal/Abdominal: Normal Exam, Bowel Sounds, Soft, No Tenderness Extremity: Pedal Edema (+1 pitting edema B/L LEs) Extremity: Bilateral: Atraumatic Neurological/Psych: Other (withdraws from pain, no eye opening, intubated GCS 6) ED Course And Treatment - Laboratory Results Result Diagrams: 04/15/17 06:43 04/15/17 06:36 ECG: Interpreted By Me, Viewed By Me (sinus tachycardia 114 bpm, normal axis, low voltage QRS, Q waves II, III, aVF, no acute ST changes) ECG Interpretation: Abnormal O2 Sat by Pulse Oximetry: 99 (100% fIo2) Pulse Ox Interpretation: Normal - Other Rad CXR X-Ray: Viewed By Me, Read By Radiologist Interpretation: Accession No. : [id number]. Patient Name / ID : KIMBERLY RDZ / [id number]. Exam Date : 04/13/2017 08:52:43 ( Approved ). Study Comment : Sex / Age : F / 66Y. Creator : Dao Malloy MD. Dictator : Dao Malloy MD. Termite Control Service Representative : Commissary Steward : Dao Malloy MD. Approver2 : Report Date : 04/13/2017 09:10:21. My Comment : . Chest x- ray two views. History: Shortness of breath. Comparison: 11/02/2016. Findings : Endotracheal tube extending into the mid thoracic trachea. NG tube extending into the stomach. Other lines and tubes in stable position. Elevated right hemidiaphragm. Moderate loculated right pleural effusion. Moderate to severe venous congestion. Dense confluent opacification seen within the right mid to lower lung zone extending into the right hilar region. Milder patchy opacification at the left lung base. Cardiomegaly. Biapical pleural thickening with upper lobe granulomatous changes. Surgical clips in the right axilla. Degenerative changes in the spine and shoulders. Impression : Elevated right hemidiaphragm. Moderate loculated right pleural effusion. Moderate to severe venous congestion. Dense confluent opacification seen within the right mid to lower lung zone extending into the right hilar region. Milder patchy opacification at the left lung base. Cardiomegaly. - CT Scan/US CT HEAD Other Rad Studies (CT/US): Read By Radiologist, Radiology Report Reviewed CT/US Interpretation: Accession No. : [id number]. Patient Name / ID : KIMBERLY RDZ / [id number]. Exam Date : 04/13/2017 09:08:43 ( Approved ). Study Comment : Sex / Age : F / 66Y. Creator : Dao Malloy MD. Dictator : Dao Malloy MD. Termite Control Service Representative : Commissary Steward : Dao Malloy MD. Approver2 : Report Date : 04/13/2017 09:51:01. My Comment : . PROCEDURE: CT HEAD WITHOUT CONTRAST. HISTORY: Altered mental status. COMPARISON: None available. TECHNIQUE: Axial computed tomography images were obtained through the head/brain without intravenous contrast. Radiation dose: Total exam DLP = one thousand one hundred five mGy-cm. This CT exam was performed using one or more of the following dose reduction techniques: Automated exposure control, adjustment of the mA and/or kV according to patient size, and/or use of iterative reconstruction technique. FINDINGS: HEMORRHAGE: See below. BRAIN: Multi focal areas of prominent low attenuation seen throughout the brain with superimposed areas of more central increased attenuation at several of these levels. These areas of or uncertain clinical etiology and may represent hemorrhagic metastatic disease versus hemorrhagic infarcts versus multifocal infarcts versus additional etiology. Correlation with a pre and postcontrast MRI of the brain would be helpful for further evaluation. For example, in the high right frontal lobe on series 4, image 56 there is a central area of increased attenuation measuring 5.5 millimeters with peripheral low attenuation measuring up to 2.2 x 2.0 centimeters; series 4, image 50 posterior right parietal lobe there is a confluent area of low attenuation measuring 2.6 x 1.7 centimeters; series 4, image 41 inferior right frontal lobe there is confluent area of low attenuation measuring 1.8 x 1.4 centimeters ; inferior right cerebellum there is a confluent area of low attenuation measuring 2.3 x 2.0 centimeters; anterior left frontal lobe series 4 , image 50 there is a central area of increased attenuation measuring 1.1 centimeters with peripheral area of low attenuation measuring 2.8 x 2.4 centimeters; posterior left frontal lobe series 4, image 44 there is a central area of increased attenuation measuring 3 millimeters with peripheral low attenuation area; series 4, image 43 more anteriorly within the left frontal lobe there is a central area of increased attenuation measuring 1.7 centimeters with a peripheral area of low attenuation measuring 2.6 x 1.4 centimeters ; more inferiorly within the left frontal lobe on series 4, image 35 there is a central area of increased attenuation measuring 1.4 centimeters with peripheral area of low attenuation measuring 2.4 x 1.5 centimeters; and posterior inferior cerebellum on series 4, image 23 there is an area of low attenuation measuring 2.3 x 1.4 centimeters. Additional area of low attenuation seen within the inferior left temporal lobe on series 4, image 20 measuring 2.1 x 1.8 centimeters. VENTRICLES: Unremarkable. No hydrocephalus. CALVARIUM: Postsurgical changes seen at the inferior left frontal cranium. PARANASAL SINUSES: Prominent mucosal thickening and opacification of the ethmoid air cells and sphenoid sinus. MASTOID AIR CELLS: Prominent mucosal opacification of the left mastoid air cells. OTHER FINDINGS: None. IMPRESSION: Multi focal areas of prominent low attenuation seen throughout the brain with superimposed areas of more central increased attenuation at several of these levels. These areas of or uncertain clinical etiology and may represent hemorrhagic metastatic disease versus hemorrhagic infarcts versus multifocal infarcts versus multifocal metastatic disease versus additional etiology. Correlation with a pre and postcontrast MRI of the brain would be helpful for further evaluation. Additional findings as above. These findings were discussed with Dr. Ybarra at 9:40 a.m. on 04/13/2017. Progress Note: Blood work, CXR, EKG, UA, CT head ordered and reviewed. Patient given IV NS boluis. IV versed and IV fentanyl ordered for sedation - as per pharmacy no fentanyl is available (nationwide shortage). Discussed patient with Dr. Johnston, recommends precedex in sedation for hypotensive patient - came down and evaluated patient. 9:35pm- Spoke with Dr. Duran, concerned for hemorrhagic mets in brain, recommends MRI stat - order entered. Neurology consult Dr. Blanchard entered - pending call back. 10:15am- SFOB (+), Hgb 7.2, (+) hemorrhagic mets - will transfuse PRBCs. Dr. Johnston in agreement. Discussed with , he is in agreement and states she has had transfusions before - signed transfusion consent. - Physician Consult Information Physician Contacted: Sadaf Matias Outcome Of Conversation: Discussed patient with Dr. Keira matias, agrees with admission to his service for respiratory failure, [place] cancer, COPD/CHF. Critical Care Time - Critical Care Note Total Time (in mins): 40 Documented critical care: time excludes all time spent performing seperately billable procedures. Disposition - Disposition Disposition: HOSPITALIZED Disposition Time: 09:21 Condition: CRITICAL - Clinical Impression Clinical Impression: Respiratory failure, Lung cancer, CHF exacerbation, COPD (chronic obstructive pulmonary disease) Decision To Admit - Pt Status Changed To: Hospital Disposition Of: Inpatient - Admit Certification Admit to Inpatient:: After my assessment, the patient will require hospitalization for at least two midnights. This is because of the severity of symptoms shown, intensity of services needed, and/or the medical risk in this patient being treated as an outpatient. - InPatient: Physician Admission Certification: I certify that this patient requires 2 or more midnights of care for the following reason:: see notes - . Bed Request Type: ICU Admitting Physician: Sadaf Matias Patient Diagnosis: Respiratory failure, Lung cancer, CHF exacerbation, COPD (chronic obstructive pulmonary disease)
[2017-04-13 09:02] LABS: INR 1.1
[2017-04-13 09:03] LABS: ALKALINE PHOSPHATASE 54 U/L (38-126); ALT/SGPT 33 U/L (9-52); AST/SGOT 29 U/L (14-36); BILIRUBIN,TOTAL 0.5 mg/dL (0.2-1.3); BLOOD UREA NITROGEN 21 mg/dL (7-17); CALCIUM 7.4 mg/dl (8.6-10.4); CARBON DIOXIDE 30 mmol/L (22-30); CHLORIDE 100 mmol/L (98-107); GFR AFRICAN-AMERICAN > 60; GLUCOSE,RANDOM 151 mg/dL (65-105); POTASSIUM 3.6 mmol/L (3.6-5.2); SODIUM 139 mmol/L (132-148)
--- NOTE | 2017-04-13 09:12 | RAD ---
Chest x-ray two views History: Shortness of breath. Comparison: 11/02/2016 Findings: Endotracheal tube extending into the mid thoracic trachea. NG tube extending into the stomach. Other lines and tubes in stable position. Elevated right hemidiaphragm. Moderate loculated right pleural effusion. Moderate to severe venous congestion. Dense confluent opacification seen within the right mid to lower lung zone extending into the right hilar region. Milder patchy opacification at the left lung base. Cardiomegaly. Biapical pleural thickening with upper lobe granulomatous changes. Surgical clips in the right axilla. Degenerative changes in the spine and shoulders. Impression: Elevated right hemidiaphragm. Moderate loculated right pleural effusion. Moderate to severe venous congestion. Dense confluent opacification seen within the right mid to lower lung zone extending into the right hilar region. Milder patchy opacification at the left lung base. Cardiomegaly.
[2017-04-13 09:17] LABS: BASO % 0.3 % (0.0-2.0); EOS # 0.2 K/uL (0.0-0.7); EOS % 2.2 % (0.0-4.0); HEMATOCRIT 22.8 % (34.0-47.0); LYMPH # 0.8 K/uL (1.0-4.3); LYMPH % 7.2 % (20.0-40.0); MEAN CELL VOLUME 91.2 fL (81.0-99.0); MEAN CORPUSCULAR HEMOGLOBIN 28.8 pg (27.0-31.0); MEAN CORPUSCULAR HGB CONC 31.5 g/dL (33.0-37.0); MEAN PLATELET VOLUME 6.5 fL (7.2-11.7); MONO # 0.6 K/uL (0.0-0.8); MONO % 5.1 % (0.0-10.0); PLATELET COUNT 386 K/uL (130-400); RED CELL DISTRIBUTION WIDTH 17.7 % (11.5-14.5)
[2017-04-13 09:18] LABS: WHITE BLOOD COUNT 10.9 K/uL (4.8-10.8)
[2017-04-13] MEDS ORDERED: Azithromycin 500 MG in Sodium Chloride 0.9% 250 ML IVPB STA (09:23)
[2017-04-13] MEDS ORDERED: cefTRIAXone IV 1 gm in Dextros 50 ML IV STA (09:23)
[2017-04-13 09:28] LABS: EOSINOPHIL 3 % (0-4); NEUTROPHIL 80 % (50-75); TOTAL CELLS COUNTED 100
[2017-04-13 09:42] LABS: RBC URINE 1 /hpf (0-3); URINE BILIRUBIN NEGATIVE (NEGATIVE); URINE BLOOD NEGATIVE (NEGATIVE); URINE COLOR Straw (YELLOW); URINE GLUCOSE (UA) NORMAL (Normal); URINE HYALINE CAST 0-2 /lpf (0-2); URINE KETONE NEGATIVE (NEGATIVE); URINE LEUKOCYTE ESTERASE NEG Leu/uL (Negative); URINE PROTEIN 1+ mg/dL (NEGATIVE); URINE UROBILINOGEN NORMAL mg/dL (0.2-1.0); WBC URINE < 1 /hpf (0-5)
[2017-04-13] MEDS ORDERED: Midazolam 2 MG/2 ML VIAL ONE (09:43)
[2017-04-13] MEDS ORDERED: cefTRIAXone IV 1 gm in Dextros 50 ML IVPB ONE ×2 (09:44→13:30)
[2017-04-13] MEDS ORDERED: Magnesium Sulfate 1 gm in D5W 1 GM/100 ML BAG IVPB ONE (09:44)
--- NOTE | 2017-04-13 09:52 | CT ---
PROCEDURE: CT HEAD WITHOUT CONTRAST. HISTORY: Altered mental status COMPARISON: None available. TECHNIQUE: Axial computed tomography images were obtained through the head/brain without intravenous contrast. Radiation dose: Total exam DLP = one thousand one hundred five mGy-cm. This CT exam was performed using one or more of the following dose reduction techniques: Automated exposure control, adjustment of the mA and/or kV according to patient size, and/or use of iterative reconstruction technique. FINDINGS: HEMORRHAGE: See below BRAIN: Multi focal areas of prominent low attenuation seen throughout the brain with superimposed areas of more central increased attenuation at several of these levels. These areas of or uncertain clinical etiology and may represent hemorrhagic metastatic disease versus hemorrhagic infarcts versus multifocal infarcts versus additional etiology. Correlation with a pre and postcontrast MRI of the brain would be helpful for further evaluation. For example, in the high right frontal lobe on series 4, image 56 there is a central area of increased attenuation measuring 5.5 millimeters with peripheral low attenuation measuring up to 2.2 x 2.0 centimeters; series 4, image 50 posterior right parietal lobe there is a confluent area of low attenuation measuring 2.6 x 1.7 centimeters; series 4, image 41 inferior right frontal lobe there is confluent area of low attenuation measuring 1.8 x 1.4 centimeters ; inferior right cerebellum there is a confluent area of low attenuation measuring 2.3 x 2.0 centimeters; anterior left frontal lobe series 4, image 50 there is a central area of increased attenuation measuring 1.1 centimeters with peripheral area of low attenuation measuring 2.8 x 2.4 centimeters; posterior left frontal lobe series 4, image 44 there is a central area of increased attenuation measuring 3 millimeters with peripheral low attenuation area; series 4, image 43 more anteriorly within the left frontal lobe there is a central area of increased attenuation measuring 1.7 centimeters with a peripheral area of low attenuation measuring 2.6 x 1.4 centimeters ; more inferiorly within the left frontal lobe on series 4, image 35 there is a central area of increased attenuation measuring 1.4 centimeters with peripheral area of low attenuation measuring 2.4 x 1.5 centimeters; and posterior inferior cerebellum on series 4, image 23 there is an area of low attenuation measuring 2.3 x 1.4 centimeters. Additional area of low attenuation seen within the inferior left temporal lobe on series 4, image 20 measuring 2.1 x 1.8 centimeters. VENTRICLES: Unremarkable. No hydrocephalus. CALVARIUM: Postsurgical changes seen at the inferior left frontal cranium. PARANASAL SINUSES: Prominent mucosal thickening and opacification of the ethmoid air cells and sphenoid sinus. MASTOID AIR CELLS: Prominent mucosal opacification of the left mastoid air cells. OTHER FINDINGS: None. IMPRESSION: Multi focal areas of prominent low attenuation seen throughout the brain with superimposed areas of more central increased attenuation at several of these levels. These areas of or uncertain clinical etiology and may represent hemorrhagic metastatic disease versus hemorrhagic infarcts versus multifocal infarcts versus multifocal metastatic disease versus additional etiology. Correlation with a pre and postcontrast MRI of the brain would be helpful for further evaluation. Additional findings as above. These findings were discussed with Dr. Ybarra at 9:40 a.m. on 04/13/2017.
[2017-04-13 10:06] LABS: ABG ALLEN TEST POS; ABG MECHANICAL RATE 12; ARTERIAL BLOOD GAS MODE A/C; ATERIAL BLOOD GAS PEEP 5; DRAW SITE RRA
[2017-04-13] MEDS ORDERED: Pantoprazole 80 MG in Sodium Chloride 0.9% 100 ML IVP STA (10:10)
[2017-04-13] MEDS: Dexmedetomidine Hydrochloride 200 MCG in Sodium Chloride 0.9% 48 ML IV STA ×5 (10:10→22:43)
[2017-04-13] MEDS ORDERED: Albuterol-Ipratrop 20 mcg/actuation (4 g) IH PRN (11:52)
--- NOTE | 2017-04-13 12:24 | CP.PCM.CON ---
History of Present Illness - History of Present Illness History of Present Illness: Reason for consultation: Respiratory failure requiring intubation 66-year-old female with lung CA with bone mets, CHF, COPD, hypothyroidism, arthritis, hyperlipidemia brought to the emergency room intubated in the field for severe shortness of breath. states patient broke up this morning with shortness of breath. In the emergency room CAT scan of the head consistent with metastatic disease. Patient also had rectal bleeding with low hemoglobin and was started on PRBC transfusion. Review of Systems - Review of Systems Systems not reviewed;Unavailable: Intubated Past Patient History - Past Medical History & Family History Past Medical History?: Yes - Past Social History Smoking Status: Current Some Days Smoker - CARDIAC Hx Hypercholesterolemia: Yes - PULMONARY Hx Bronchitis: Yes Hx Chronic Obstructive Pulmonary Disease (COPD): Yes - NEUROLOGICAL Hx Alzheimer's Disease: No Hx Dementia: No Hx Migraine: No Hx Multiple Sclerosis: No Hx Parkinson's Disease: No Hx Seizures: No Hx Transient Ischemic Attacks (TIA): No - HEENT Hx HEENT Problems: Yes Hx Blind: No Hx Cataracts: Yes (IOL b/l) - RENAL Hx Chronic Kidney Disease: No - ENDOCRINE/METABOLIC Hx Hypothyroidism: Yes - HEMATOLOGICAL/ONCOLOGICAL Hx Blood Transfusions: No Hx Blood Transfusion Reaction: No - INTEGUMENTARY Hx Dermatological Problems: No - MUSCULOSKELETAL/RHEUMATOLOGICAL Hx Arthritis: Yes - GASTROINTESTINAL Hx Gastrointestinal Disorders: No - GENITOURINARY/GYNECOLOGICAL Hx Genitourinary Disorders: No - PSYCHIATRIC Hx Substance Use: No - SURGICAL HISTORY Hx Tonsillectomy: Yes (1961) - ANESTHESIA Hx Anesthesia Reactions: Yes (n/v) Hx Malignant Hyperthermia: No Meds Allergies/Adverse Reactions: Allergies Allergy/AdvReac Type Severity Reaction Status Date / Time SYNTHROID(COMPOUND) Allergy Severe RASH Uncoded 04/13/17 08:38 surgical tape Allergy Intermediate blisters Uncoded 04/13/17 08:38 versed AdvReac Intermediate pt reports Uncoded 04/13/17 08:38 she couldn't wake up after versed - Medications Medications: Current Medications Albuterol/Ipratropium (Combivent Respimat) 2 puff IH QID PRN PRN Reason: Wheezing Famotidine (Pepcid) 20 mg IVP Q12 [facility] Home Med (Levetiracetam [Levetiracetam]) 500 mg PO HS [facility] Home Med (Theophylline Anhydrous [Sarabjit-24]) 400 mg PO QPM [facility] Dexmedetomidine HCl 200 mcg/ (Sodium Chloride) 50 mls @ 3.62 mls/hr IV TITR STA ; 0.2 MCG/KG/HR PRN Reason: Protocol Stop: 04/13/17 23:28 Last Admin: 04/13/17 10:10 Dose: 0.2 mcg/kg/hr, 3.62 mls/hr Ceftriaxone Sodium (Rocephin Iv 1 Gm Duplex) 50 mls @ 200 mls/hr IVPB ONCE ONE Stop: 04/13/17 12:06 Piperacillin Sod/Tazobactam Sod (Zosyn 3.375 Gm Iv Premix) 3.375 gm in 50 mls @ 100 mls/hr IVPB Q8H [facility] Azithromycin 500 mg/ Sodium (Chloride) 250 mls @ 250 mls/hr IVPB DAILY [facility] Physical Exam - Head Exam Head Exam: ATRAUMATIC, NORMOCEPHALIC - Eye Exam Pupil Exam: Irregular - ENT Exam ENT Exam: Mucous Membranes Moist - Neck Exam Neck exam: Positive for: Normal Inspection - Respiratory Exam Respiratory Exam: Decreased Breath Sounds - Cardiovascular Exam Cardiovascular Exam: REGULAR RHYTHM - GI/Abdominal Exam GI & Abdominal Exam: Normal Bowel Sounds, Soft - Extremities Exam Extremities exam: Positive for: normal inspection - Neurological Exam Neurological exam: Altered Results - Vital Signs Recent Vital Signs: Last Vital Signs Temp 96.2 F L 04/13/17 08:30 Pulse 121 H 04/13/17 09:56 Resp 11 L 04/13/17 09:56 BP 110/87 04/13/17 09:56 Pulse Ox 99 04/13/17 10:23 - Labs Result Diagrams: 04/13/17 08:47 04/13/17 08:47 Labs: Laboratory Results - last 24 hr 04/13/17 04/13/17 04/13/17 08:39 08:47 08:47 WBC 10.9 H D RBC 2.50 L Hgb 7.2 L Hct 22.8 L MCV 91.2 D MCH 28.8 MCHC 31.5 L RDW 17.7 H Plt Count 386 D MPV 6.5 L Neut % (Auto) 85.2 H Lymph % (Auto) 7.2 L [place] % (Auto) 5.1 Eos % (Auto) 2.2 Baso % (Auto) 0.3 Neut # 9.3 H Lymph # 0.8 L [place] # 0.6 Eos # 0.2 Baso # 0.0 Neutrophils % (Manual) 80 H Band Neutrophils % 4 H Lymphocytes % (Manual) 10 L Monocytes % (Manual) 3 Eosinophils % (Manual) 3 Platelet Estimate Normal Polychromasia Slight Hypochromasia (manual) Slight Basophilic Stippling Slight Anisocytosis (manual) Moderate PT 12.3 H INR 1.1 APTT 20 L Puncture Site pCO2 pO2 34 HCO3 ABG pH ABG Total CO2 ABG O2 Saturation ABG Base Excess Shawn Test ABG Potassium VBG pH 7.19 L* VBG pCO2 109 H* VBG HCO3 30.7 VBG Total CO2 44.9 H VBG O2 Sat (Calc) 60.8 VBG Base Excess 9.0 H VBG Potassium 4.3 A-a O2 Difference Respiratory Index Sodium 142.0 Chloride 106.0 Glucose 182 H Lactate 1.1 Vent Mode Mechanical Rate FiO2 Tidal Volume PEEP Crit Value Called To Dr vickie alves Crit Value Called By Robert cordova Crit Value Read Back Y Blood Gas Notified Time 845 Potassium Carbon Dioxide Anion Gap BUN Creatinine Est GFR ( Amer) Est GFR (Non-Af Amer) Random Glucose Calcium Total Bilirubin AST ALT Alkaline Phosphatase Total Creatine Kinase CK-MB (Mass) Troponin I NT-Pro-B Natriuret Pep Total Protein Albumin Globulin Albumin/Globulin Ratio TSH 3rd Generation Arterial Blood Potassium Venous Blood Potassium 4.3 Urine Color Urine Clarity Urine pH Ur Specific Enterprise Urine Protein Urine Glucose (UA) Urine Ketones Urine Blood Urine Nitrate Urine Bilirubin Urine Urobilinogen Ur Leukocyte Esterase Urine WBC (Auto) Urine RBC (Auto) Hyaline Casts Stool Occult Blood 04/13/17 04/13/17 04/13/17 08:47 09:32 10:00 WBC RBC Hgb Hct MCV MCH MCHC RDW Plt Count MPV Neut % (Auto) Lymph % (Auto) [place] % (Auto) Eos % (Auto) Baso % (Auto) Neut # Lymph # [place] # Eos # Baso # Neutrophils % (Manual) Band Neutrophils % Lymphocytes % (Manual) Monocytes % (Manual) Eosinophils % (Manual) Platelet Estimate Polychromasia Hypochromasia (manual) Basophilic Stippling Anisocytosis (manual) PT INR APTT Puncture Site Rra pCO2 70 H pO2 191 H HCO3 28.7 H ABG pH 7.29 L ABG Total CO2 35.8 H ABG O2 Saturation 99.8 H ABG Base Excess 4.8 H Shawn Test Pos ABG Potassium 3.8 VBG pH VBG pCO2 VBG HCO3 VBG Total CO2 VBG O2 Sat (Calc) VBG Base Excess VBG Potassium A-a O2 Difference 149.0 Respiratory Index 0.8 Sodium 139 143.0 Chloride 100 112.0 H Glucose 147 H Lactate 1.5 Vent Mode A/c Mechanical Rate 12 FiO2 60.0 Tidal Volume 500 PEEP 5 Crit Value Called To Crit Value Called By Crit Value Read Back Blood Gas Notified Time Potassium 3.6 Carbon Dioxide 30 Anion Gap 12 BUN 21 H Creatinine 0.9 Est GFR ( Amer) > 60 Est GFR (Non-Af Amer) > 60 Random Glucose 151 H Calcium 7.4 L Total Bilirubin 0.5 AST 29 ALT 33 Alkaline Phosphatase 54 Total Creatine Kinase 23 L CK-MB (Mass) 0.51 Troponin I < 0.0120 NT-Pro-B Natriuret Pep 332 Total Protein 6.0 L Albumin 3.1 L Globulin 3.0 Albumin/Globulin Ratio 1.0 TSH 3rd Generation 13.70 H Arterial Blood Potassium 3.8 Venous Blood Potassium Urine Color Straw Urine Clarity Clear Urine pH 6.0 Ur Specific [place] 1.009 Urine Protein 1+ H Urine Glucose (UA) Normal Urine Ketones Negative Urine Blood Negative Urine Nitrate Negative Urine Bilirubin Negative Urine Urobilinogen Normal Ur Leukocyte Esterase Neg Urine WBC (Auto) < 1 Urine RBC (Auto) 1 Hyaline Casts 0-2 Stool Occult Blood 04/13/17 10:03 WBC RBC Hgb Hct MCV MCH MCHC RDW Plt Count MPV Neut % (Auto) Lymph % (Auto) [place] % (Auto) Eos % (Auto) Baso % (Auto) Neut # Lymph # [place] # Eos # Baso # Neutrophils % (Manual) Band Neutrophils % Lymphocytes % (Manual) Monocytes % (Manual) Eosinophils % (Manual) Platelet Estimate Polychromasia Hypochromasia (manual) Basophilic Stippling Anisocytosis (manual) PT INR APTT Puncture Site pCO2 pO2 HCO3 ABG pH ABG Total CO2 ABG O2 Saturation ABG Base Excess Shawn Test ABG Potassium VBG pH VBG pCO2 VBG HCO3 VBG Total CO2 VBG O2 Sat (Calc) VBG Base Excess VBG Potassium A-a O2 Difference Respiratory Index Sodium Chloride Glucose Lactate Vent Mode Mechanical Rate FiO2 Tidal Volume PEEP Crit Value Called To Crit Value Called By Crit Value Read Back Blood Gas Notified Time Potassium Carbon Dioxide Anion Gap BUN Creatinine Est GFR ( Amer) Est GFR (Non-Af Amer) Random Glucose Calcium Total Bilirubin AST ALT Alkaline Phosphatase Total Creatine Kinase CK-MB (Mass) Troponin I NT-Pro-B Natriuret Pep Total Protein Albumin Globulin Albumin/Globulin Ratio TSH 3rd Generation Arterial Blood Potassium Venous Blood Potassium Urine Color Urine Clarity Urine pH Ur Specific Enterprise Urine Protein Urine Glucose (UA) Urine Ketones Urine Blood Urine Nitrate Urine Bilirubin Urine Urobilinogen Ur Leukocyte Esterase Urine WBC (Auto) Urine RBC (Auto) Hyaline Casts Stool Occult Blood Positive H Assessment & Plan (1) Acute respiratory failure with hypoxemia Status: Acute Comment: Secondary to COPD exacerbation and possible pneumonia. Patient with history of metastatic lung CA. IV antibiotics. Ventilator support and reduce FiO2 as tolerated. Follow-up culture and sensitivity. DNR. Transfuse packed RBCs. Continue Pepcid (2) Lung cancer Status: Chronic Comment: With metastases to brain. Prognosis poor. Case discussed with family at length. Critical care time 50 minutes
--- NOTE | 2017-04-13 12:38 | CP.PCM.CON ---
History of Present Illness - History of Present Illness History of Present Illness: 66 yo female is admitted to ICU after developing for respiratory distress. As per EMS, woke up and found patient having difficulty breathing in bed next to him. On arrival, patient having agonal breathing, but was not pulseless. She was intubated in the field using ketamine, versed, succinylcholine; also given IV solumedrol, terbutaline, nebulizer treatments. EMS also mentioned she apparently had transient left sided facial droop during transfer from home to ambulance. ID consulted for Antibiotic management - Medical History PMH: Arthritis, Bronchitis, COPD, Hypercholesterolemia, Hypothyroidism lung CA with bone mets, and possible brain mets breast Ca CHF, COPD, hypothyroidism, arthritis, hyperlipidemia - [facility] Procedures CHEST CAGE BONE BIOPSY (11/15/13) CLOSED [PERCUTANEOUS] [NEEDLE] BIOPSY OF LUNG (05/24/13) FIBER-OPTIC BRONCHOSCOPY (08/25/13) INSERT INTERCOSTAL CATH (08/25/13) LYMPHATIC STRUCT BIOPSY (08/25/13) THORACOSCOPIC EXCISION OF LESION OR TISSUE OF LUNG (08/25/13) Review of Systems - Review of Systems Systems not reviewed;Unavailable: Altered Mental Status, Intubated All systems: reviewed and no additional remarkable complaints except - Constitutional Constitutional: As Per HPI, Anorexia - EENT Eyes: absent: As Per HPI, Blind Spots, Blurred Vision, Change in Vision, Decreased Night Vision, Diplopia, Discharge, Dry Eye, Exophthalmos, Floaters, Irritation, Itchy Eyes, Loss of Peripheral Vision, Pain, Photophobia, Requires Corrective Lenses, Sees Flashes, Spots in Vision, Tunnel Vision, Other Visual Disturbances, Loss of Vision, Other Ears: absent: As Per HPI, Decreased Hearing, Ear Discharge, Ear Pain, Tinnitus, Abnormal Hearing, Disequilibrium, Dizziness, Other Nose/Mouth/Throat: absent: As Per HPI, Epistaxis, Nasal Congestion, Nasal Discharge, Nasal Obstruction, Nasal Trauma, Nose Pain, Post Nasal Drip, Sinus Pain, Sinus Pressure, Bleeding Gums, Change in Voice, Dental Pain, Dry Mouth, Dysphagia, Halitosis, Hoarsness, Lip Swelling, Mouth Lesions, Mouth Pain, Odynophagia, Sore Throat, Throat Swelling, Tongue Swelling, Facial Pain, Neck Pain, Neck Mass, Other - Breasts Breasts: absent: As Per HPI, Change in Shape, Mass, Pain, Nipple Discharge, Nipple Inversion, Skin Changes, Swelling, Other - Cardiovascular Cardiovascular: absent: As Per HPI, Acrocyanosis, Chest Pain, Chest Pain at Rest , Chest Pain with Activity, Claudication, Diaphoresis, Dyspnea, Dyspnea on Exertion, Edema, Irregular Heart Rhythm, Pain Radiating to Arm/Neck/Jaw, Leg Edema, Leg Ulcers, Lightheadedness, Orthopnea, Palpitations, Paroxysmal Nocturnal Dyspnea, Pedal Edema, Radiating Pain, Rapid Heart Rate, Slow Heart Rate, Syncope, Other - Respiratory Respiratory: As Per HPI, Dyspnea - Gastrointestinal Gastrointestinal: absent: As Per HPI, Abdominal Pain, Belching, Bloating, Change in Bowel Habits, Change in Stool Character, Coffee Ground Emesis, Constipation, Cramping, Diarrhea, Dyspepsia, Dysphagia, Early Satiety, Excessive Flatus, Fecal Incontinence, Heartburn, Hematemesis, Hematochezia, Loose Stools, Melena, Nausea, Odynophagia, Temesmus, Vomiting, Other - Genitourinary Genitourinary: absent: As Per HPI, Change in Urinary Stream, Difficulty Urinating, Dysuria, Flank Pain, Hematuria, Pyuria, Nocturia, Urinary Incontinence, Urinary Frequency, Urinary Hesitance, Urinary Urgency, Voiding Freq/Small Amts, Freq UTI, Hx Renal/Bladder Calculi, Hx /Renal Surgery, Bladder Distension, Other - Reproductive: Female Reproductive:Female: absent: As Per HPI, Amenorrhea, Amenorrhea/ Control, Currently Menstual, Cycle <21 Days, Cycle >35 Days, Cycle Variable, Menses 1-7 Days, Menses >/= 8 Days, Menses Variable, Cycle > 4 Weeks Between, No Menses for 6 Months, Heavy Menses, Light Menses, Normal Menses, Spotting Between Cycles , S/P Hysterectomy, Menopausal, Post Menopausal, Premenarche, Abnormal Vaginal Bleeding, Dysmenorrhea, Dyspareunia, Genital Lesions, Genital Pruritis, Pelvic Pain, Prolapse Symptoms, Sexual Dysfunction, Vaginal Discharge, Vaginal Dryness , Vaginal Odor, Vaginal Pruritis, Other - Menstruation Menstruation: absent: As Per HPI, Amenorrhea, Amenorrhea/ Control, Currently Menstual, Cycle <21 Days, Cycle >35 Days, Cycle Variable, Menses 1-7 Days, Menses >/= 8 Days, Menses Variable, Cycle > 4 Weeks Between, No Menses for 6 Months, Heavy Menses, Light Menses, Normal Menses, Spotting Between Cycles , S/P Hysterectomy, Menopausal, Post Menopausal, Premenarche, Abnormal Vaginal Bleeding, Dysmenorrhea, Other - Musculoskeletal Musculoskeletal: absent: As Per HPI, Abnormal Gait, Arthralgias, Atrophy, Back Pain, Deformity, Joint Swelling, Limited Range of Motion, Loss of Height, Muscle Cramps, Muscle Weakness, Myalgias, Neck Pain, Numbness, Radiating Pain into Limb, Stiffness, Tingling, Other - Integumentary Integumentary: absent: As Per HPI, Acne, Alopecia, Bleeding Lesions, Change in Hair, Change in Nails, Change in Pigmentation, Changing Lesions, Dry Skin, Erythema, Furuncle, Hirsutism, Lesions, New Lesions, Non-Healing Lesions, Photosensitivity, Pruritus, Rash, Skin Pain, Skin Ulcer, Sores, Striae, Swelling , Unusual Bruising, Wounds, Jaundice, Other - Neurological Neurological: As Per HPI - Psychiatric Psychiatric: absent: As Per HPI, Abnormal Sleep Pattern, Anhedonia, Anxiety, Auditory Hallucinations, Behavioral Changes, Change in Appetite, Change in Libido, Confusion, Depression, Difficulty Concentrating, Hallucinations, Homicidal Ideation, Hopelessness, Irritability, Memory Loss, Mood Swings, Panic Attacks, Paranoia, Suicidal Ideation, Visual Hallucinations, Tactile Hallucinations, Other - Endocrine Endocrine: absent: As Per HPI, Change in Body Appearance, Change in Libido, Cold Intolorance, Deepening of Voice, Excessive Sweating, Fatigue, Flushing, Heat Intolorance, Increase in Ring/Shoe/Hat Size, Palpitations, Polydipsia, Polyphagia, Polyuria, Other - Hematologic/Lymphatic Hematologic: absent: As Per HPI, Easy Bleeding, Easy Bruising, Lymphadenopathy, Other Past Patient History - Past Medical History & Family History Past Medical History?: Yes - Past Social History Smoking Status: Current Some Days Smoker - CARDIAC Hx Hypercholesterolemia: Yes - PULMONARY Hx Bronchitis: Yes Hx Chronic Obstructive Pulmonary Disease (COPD): Yes - NEUROLOGICAL Hx Alzheimer's Disease: No Hx Dementia: No Hx Migraine: No Hx Multiple Sclerosis: No Hx Parkinson's Disease: No Hx Seizures: No Hx Transient Ischemic Attacks (TIA): No - HEENT Hx HEENT Problems: Yes Hx Blind: No Hx Cataracts: Yes (IOL b/l) - RENAL Hx Chronic Kidney Disease: No - ENDOCRINE/METABOLIC Hx Hypothyroidism: Yes - HEMATOLOGICAL/ONCOLOGICAL Hx Blood Transfusions: No Hx Blood Transfusion Reaction: No - INTEGUMENTARY Hx Dermatological Problems: No - MUSCULOSKELETAL/RHEUMATOLOGICAL Hx Arthritis: Yes - GASTROINTESTINAL Hx Gastrointestinal Disorders: No - GENITOURINARY/GYNECOLOGICAL Hx Genitourinary Disorders: No - PSYCHIATRIC Hx Substance Use: No - SURGICAL HISTORY Hx Tonsillectomy: Yes (1961) - ANESTHESIA Hx Anesthesia Reactions: Yes (n/v) Hx Malignant Hyperthermia: No Meds Allergies/Adverse Reactions: Allergies Allergy/AdvReac Type Severity Reaction Status Date / Time SYNTHROID(COMPOUND) Allergy Severe RASH Uncoded 04/13/17 08:38 surgical tape Allergy Intermediate blisters Uncoded 04/13/17 08:38 versed AdvReac Intermediate pt reports Uncoded 04/13/17 08:38 she couldn't wake up after versed - Medications Medications: Current Medications Albuterol/Ipratropium (Combivent Respimat) 2 puff IH QID PRN PRN Reason: Wheezing Famotidine (Pepcid) 20 mg IVP Q12 [facility] Home Med (Levetiracetam [Levetiracetam]) 500 mg PO HS [facility] Home Med (Theophylline Anhydrous [Sarabjit-24]) 400 mg PO QPM [facility] Dexmedetomidine HCl 200 mcg/ (Sodium Chloride) 50 mls @ 3.62 mls/hr IV TITR STA ; 0.2 MCG/KG/HR PRN Reason: Protocol Stop: 04/13/17 23:28 Last Admin: 04/13/17 10:10 Dose: 0.2 mcg/kg/hr, 3.62 mls/hr Ceftriaxone Sodium (Rocephin Iv 1 Gm Duplex) 50 mls @ 200 mls/hr IVPB ONCE ONE Stop: 04/13/17 12:06 Piperacillin Sod/Tazobactam Sod (Zosyn 3.375 Gm Iv Premix) 3.375 gm in 50 mls @ 100 mls/hr IVPB Q8H AL Azithromycin 500 mg/ Sodium (Chloride) 250 mls @ 250 mls/hr IVPB DAILY AL Physical Exam - Constitutional Appears: Well, Non-toxic, Cachectic - Head Exam Head Exam: ATRAUMATIC, NORMAL INSPECTION, NORMOCEPHALIC - Eye Exam Eye Exam: EOMI, Normal appearance. absent: Scleral icterus Pupil Exam: PERRL - ENT Exam ENT Exam: Mucous Membranes Dry, Normal External Ear Exam. absent: Normal Oropharynx Additional comments: intubated orally - Neck Exam Neck exam: Positive for: Normal Inspection - Respiratory Exam Respiratory Exam: Decreased Breath Sounds, Rhonchi - Cardiovascular Exam Cardiovascular Exam: REGULAR RHYTHM - GI/Abdominal Exam GI & Abdominal Exam: Diminished Bowel Sounds, Distended, Soft. absent: Guarding , Rebound, Rigid, Tenderness - Rectal Exam Rectal Exam: NORMAL INSPECTION - Exam Exam: NORMAL INSPECTION External exam: NORMAL EXTERNAL EXAM Speculum exam: absent: Cervical Discharge, Erythema, Foreign Body, Laceration, Tissue, Vaginal Bleeding, Vaginal Discharge - Extremities Exam Extremities exam: Positive for: normal inspection, pedal pulses present. Negative for: pedal edema, tenderness - Back Exam Back exam: NORMAL INSPECTION. absent: CVA tenderness (L), CVA tenderness (R) - Neurological Exam Neurological exam: Altered, CN II-XII Intact Additional comments: intubated orally ? left weakness - Psychiatric Exam Additional comments: sedated on vent - Skin Skin Exam: Dry, Intact, Normal Color, Warm Results - Vital Signs Recent Vital Signs: Last Vital Signs Temp 96.2 F L 04/13/17 08:30 Pulse 121 H 04/13/17 09:56 Resp 11 L 04/13/17 09:56 BP 110/87 04/13/17 09:56 Pulse Ox 99 04/13/17 10:23 - Labs Result Diagrams: 04/13/17 08:47 04/13/17 08:47 Labs: Laboratory Results - last 24 hr 04/13/17 04/13/17 04/13/17 08:39 08:47 08:47 WBC 10.9 H D RBC 2.50 L Hgb 7.2 L Hct 22.8 L MCV 91.2 D MCH 28.8 MCHC 31.5 L RDW 17.7 H Plt Count 386 D MPV 6.5 L Neut % (Auto) 85.2 H Lymph % (Auto) 7.2 L Dyer % (Auto) 5.1 Eos % (Auto) 2.2 Baso % (Auto) 0.3 Neut # 9.3 H Lymph # 0.8 L Dyer # 0.6 Eos # 0.2 Baso # 0.0 Neutrophils % (Manual) 80 H Band Neutrophils % 4 H Lymphocytes % (Manual) 10 L Monocytes % (Manual) 3 Eosinophils % (Manual) 3 Platelet Estimate Normal Polychromasia Slight Hypochromasia (manual) Slight Basophilic Stippling Slight Anisocytosis (manual) Moderate PT 12.3 H INR 1.1 APTT 20 L Puncture Site pCO2 pO2 34 HCO3 ABG pH ABG Total CO2 ABG O2 Saturation ABG Base Excess Shawn Test ABG Potassium VBG pH 7.19 L* VBG pCO2 109 H* VBG HCO3 30.7 VBG Total CO2 44.9 H VBG O2 Sat (Calc) 60.8 VBG Base Excess 9.0 H VBG Potassium 4.3 A-a O2 Difference Respiratory Index Sodium 142.0 Chloride 106.0 Glucose 182 H Lactate 1.1 Vent Mode Mechanical Rate FiO2 Tidal Volume PEEP Crit Value Called To Dr vickie alves Crit Value Called By Robert cordova Crit Value Read Back Y Blood Gas Notified Time 845 Potassium Carbon Dioxide Anion Gap BUN Creatinine Est GFR ( Amer) Est GFR (Non-Af Amer) Random Glucose Calcium Total Bilirubin AST ALT Alkaline Phosphatase Total Creatine Kinase CK-MB (Mass) Troponin I NT-Pro-B Natriuret Pep Total Protein Albumin Globulin Albumin/Globulin Ratio TSH 3rd Generation Arterial Blood Potassium Venous Blood Potassium 4.3 Urine Color Urine Clarity Urine pH Ur Specific [place] Urine Protein Urine Glucose (UA) Urine Ketones Urine Blood Urine Nitrate Urine Bilirubin Urine Urobilinogen Ur Leukocyte Esterase Urine WBC (Auto) Urine RBC (Auto) Hyaline Casts Stool Occult Blood 04/13/17 04/13/17 04/13/17 08:47 09:32 10:00 WBC RBC Hgb Hct MCV MCH MCHC RDW Plt Count MPV Neut % (Auto) Lymph % (Auto) Dyer % (Auto) Eos % (Auto) Baso % (Auto) Neut # Lymph # [place] # Eos # Baso # Neutrophils % (Manual) Band Neutrophils % Lymphocytes % (Manual) Monocytes % (Manual) Eosinophils % (Manual) Platelet Estimate Polychromasia Hypochromasia (manual) Basophilic Stippling Anisocytosis (manual) PT INR APTT Puncture Site Rra pCO2 70 H pO2 191 H HCO3 28.7 H ABG pH 7.29 L ABG Total CO2 35.8 H ABG O2 Saturation 99.8 H ABG Base Excess 4.8 H Shawn Test Pos ABG Potassium 3.8 VBG pH VBG pCO2 VBG HCO3 VBG Total CO2 VBG O2 Sat (Calc) VBG Base Excess VBG Potassium A-a O2 Difference 149.0 Respiratory Index 0.8 Sodium 139 143.0 Chloride 100 112.0 H Glucose 147 H Lactate 1.5 Vent Mode A/c Mechanical Rate 12 FiO2 60.0 Tidal Volume 500 PEEP 5 Crit Value Called To Crit Value Called By Crit Value Read Back Blood Gas Notified Time Potassium 3.6 Carbon Dioxide 30 Anion Gap 12 BUN 21 H Creatinine 0.9 Est GFR ( Amer) > 60 Est GFR (Non-Af Amer) > 60 Random Glucose 151 H Calcium 7.4 L Total Bilirubin 0.5 AST 29 ALT 33 Alkaline Phosphatase 54 Total Creatine Kinase 23 L CK-MB (Mass) 0.51 Troponin I < 0.0120 NT-Pro-B Natriuret Pep 332 Total Protein 6.0 L Albumin 3.1 L Globulin 3.0 Albumin/Globulin Ratio 1.0 TSH 3rd Generation 13.70 H Arterial Blood Potassium 3.8 Venous Blood Potassium Urine Color Straw Urine Clarity Clear Urine pH 6.0 Ur Specific [place] 1.009 Urine Protein 1+ H Urine Glucose (UA) Normal Urine Ketones Negative Urine Blood Negative Urine Nitrate Negative Urine Bilirubin Negative Urine Urobilinogen Normal Ur Leukocyte Esterase Neg Urine WBC (Auto) < 1 Urine RBC (Auto) 1 Hyaline Casts 0-2 Stool Occult Blood 04/13/17 10:03 WBC RBC Hgb Hct MCV MCH MCHC RDW Plt Count MPV Neut % (Auto) Lymph % (Auto) [place] % (Auto) Eos % (Auto) Baso % (Auto) Neut # Lymph # [place] # Eos # Baso # Neutrophils % (Manual) Band Neutrophils % Lymphocytes % (Manual) Monocytes % (Manual) Eosinophils % (Manual) Platelet Estimate Polychromasia Hypochromasia (manual) Basophilic Stippling Anisocytosis (manual) PT INR APTT Puncture Site pCO2 pO2 HCO3 ABG pH ABG Total CO2 ABG O2 Saturation ABG Base Excess Shawn Test ABG Potassium VBG pH VBG pCO2 VBG HCO3 VBG Total CO2 VBG O2 Sat (Calc) VBG Base Excess VBG Potassium A-a O2 Difference Respiratory Index Sodium Chloride Glucose Lactate Vent Mode Mechanical Rate FiO2 Tidal Volume PEEP Crit Value Called To Crit Value Called By Crit Value Read Back Blood Gas Notified Time Potassium Carbon Dioxide Anion Gap BUN Creatinine Est GFR ( Amer) Est GFR (Non-Af Amer) Random Glucose Calcium Total Bilirubin AST ALT Alkaline Phosphatase Total Creatine Kinase CK-MB (Mass) Troponin I NT-Pro-B Natriuret Pep Total Protein Albumin Globulin Albumin/Globulin Ratio TSH 3rd Generation Arterial Blood Potassium Venous Blood Potassium Urine Color Urine Clarity Urine pH Ur Specific [place] Urine Protein Urine Glucose (UA) Urine Ketones Urine Blood Urine Nitrate Urine Bilirubin Urine Urobilinogen Ur Leukocyte Esterase Urine WBC (Auto) Urine RBC (Auto) Hyaline Casts Stool Occult Blood Positive H Assessment & Plan (1) Acute respiratory failure with hypoxemia Status: Acute (2) Anemia Status: Acute (3) CHF exacerbation Status: Acute (4) Hypoxia Status: Acute (5) Respiratory distress Status: Acute (6) Lung cancer Status: Chronic - Assessment and Plan (Free Text) Assessment: 66 yo female with resp failure, pneumonia and hx of Lung Ca with mets Now has ? new brain mets IV antibiotics in progress May be a candidate for palliatve care discussed with at the bedside
[2017-04-13] MEDS: Piperacill/Tazo 3.375gm in Dex 3.375 GM/50 ML BAG IVPB SCH ×2 (15:00→21:42)
[2017-04-13] MEDS ORDERED: Midazolam 2 MG/2 ML VIAL IVP ONE ×2 (16:27→16:45)
--- NOTE | 2017-04-13 16:53 | CP.PCM.CON ---
History of Present Illness - History of Present Illness History of Present Illness: Mrs. Coburn is a 66-year-old woman with a past medical history of metastatic lung cancer with brain mets and seizure disorder who was found in respiratory distress in the morning by her with her eyes open and was not responsive. The patient was intubated and is currently sedated with Precedex and versed. The family provided the history. Review of Systems - Review of Systems Systems not reviewed;Unavailable: Respiratory Distress, Altered Mental Status, Intubated All systems: reviewed and no additional remarkable complaints except Past Patient History - Past Medical History & Family History Past Medical History?: Yes - Past Social History Smoking Status: Current Some Days Smoker - CARDIAC Hx Hypercholesterolemia: Yes - PULMONARY Hx Bronchitis: Yes Hx Chronic Obstructive Pulmonary Disease (COPD): Yes - NEUROLOGICAL Hx Alzheimer's Disease: No Hx Dementia: No Hx Migraine: No Hx Multiple Sclerosis: No Hx Parkinson's Disease: No Hx Seizures: No Hx Transient Ischemic Attacks (TIA): No - HEENT Hx HEENT Problems: Yes Hx Blind: No Hx Cataracts: Yes (IOL b/l) - RENAL Hx Chronic Kidney Disease: No - ENDOCRINE/METABOLIC Hx Hypothyroidism: Yes - HEMATOLOGICAL/ONCOLOGICAL Hx Blood Transfusions: No Hx Blood Transfusion Reaction: No - INTEGUMENTARY Hx Dermatological Problems: No - MUSCULOSKELETAL/RHEUMATOLOGICAL Hx Arthritis: Yes - GASTROINTESTINAL Hx Gastrointestinal Disorders: No - GENITOURINARY/GYNECOLOGICAL Hx Genitourinary Disorders: No - PSYCHIATRIC Hx Substance Use: No - SURGICAL HISTORY Hx Tonsillectomy: Yes (1961) - ANESTHESIA Hx Anesthesia Reactions: Yes (n/v) Hx Malignant Hyperthermia: No Meds Allergies/Adverse Reactions: Allergies Allergy/AdvReac Type Severity Reaction Status Date / Time SYNTHROID(COMPOUND) Allergy Severe RASH Uncoded 04/13/17 08:38 surgical tape Allergy Intermediate blisters Uncoded 04/13/17 08:38 versed AdvReac Intermediate pt reports Uncoded 04/13/17 08:38 she couldn't wake up after versed - Medications Medications: Current Medications Albuterol/Ipratropium (Combivent Respimat) 2 puff IH RQID PRN PRN Reason: Wheezing Famotidine (Pepcid) 20 mg IVP Q12 AL Dexmedetomidine HCl 200 mcg/ (Sodium Chloride) 50 mls @ 3.62 mls/hr IV TITR STA ; 0.2 MCG/KG/HR PRN Reason: Protocol Stop: 04/13/17 23:28 Last Admin: 04/13/17 15:24 Dose: 1.5 mcg/kg/hr, 27.21 mls/hr Piperacillin Sod/Tazobactam Sod (Zosyn 3.375 Gm Iv Premix) 3.375 gm in 50 mls @ 100 mls/hr IVPB Q8 AL Last Admin: 04/13/17 15:00 Dose: 100 mls/hr Azithromycin 500 mg/ Sodium (Chloride) 250 mls @ 250 mls/hr IVPB DAILY AL Levetiracetam (Keppra) 500 mg PO HS AL Theophylline (Sarabjit-24) 400 mg PO QPM AL Physical Exam - Constitutional Appears: Cachectic, Chronically Ill - Head Exam Head Exam: ATRAUMATIC, NORMAL INSPECTION, NORMOCEPHALIC - Eye Exam Pupil Exam: PERRL - Respiratory Exam Additional comments: Intubated - Cardiovascular Exam Cardiovascular Exam: +S1, +S2 - GI/Abdominal Exam GI & Abdominal Exam: Normal Bowel Sounds, Soft - Rectal Exam Rectal Exam: Deferred - Extremities Exam Extremities exam: Positive for: normal inspection - Neurological Exam Additional comments: Sedated on Precedex and Versed. Pupils are reactive to light. Gag is present, cough is present, breathing over the ventilator. Moves all extremities to pain and localizes. GCS=6T Results - Vital Signs Recent Vital Signs: Last Vital Signs Temp 98.4 F 04/13/17 16:20 Pulse 85 04/13/17 16:20 Resp 13 04/13/17 16:20 BP 114/68 04/13/17 16:20 Pulse Ox 100 04/13/17 16:10 - Labs Result Diagrams: 04/13/17 08:47 04/13/17 08:47 Labs: Laboratory Results - last 24 hr 04/13/17 04/13/17 04/13/17 08:39 08:47 08:47 WBC 10.9 H D RBC 2.50 L Hgb 7.2 L Hct 22.8 L MCV 91.2 D MCH 28.8 MCHC 31.5 L RDW 17.7 H Plt Count 386 D MPV 6.5 L Neut % (Auto) 85.2 H Lymph % (Auto) 7.2 L [place] % (Auto) 5.1 Eos % (Auto) 2.2 Baso % (Auto) 0.3 Neut # 9.3 H Lymph # 0.8 L [place] # 0.6 Eos # 0.2 Baso # 0.0 Neutrophils % (Manual) 80 H Band Neutrophils % 4 H Lymphocytes % (Manual) 10 L Monocytes % (Manual) 3 Eosinophils % (Manual) 3 Platelet Estimate Normal Polychromasia Slight Hypochromasia (manual) Slight Basophilic Stippling Slight Anisocytosis (manual) Moderate PT 12.3 H INR 1.1 APTT 20 L Puncture Site pCO2 pO2 34 HCO3 ABG pH ABG Total CO2 ABG O2 Saturation ABG Base Excess Shawn Test ABG Potassium VBG pH 7.19 L* VBG pCO2 109 H* VBG HCO3 30.7 VBG Total CO2 44.9 H VBG O2 Sat (Calc) 60.8 VBG Base Excess 9.0 H VBG Potassium 4.3 A-a O2 Difference Respiratory Index Sodium 142.0 Chloride 106.0 Glucose 182 H Lactate 1.1 Vent Mode Mechanical Rate FiO2 Tidal Volume PEEP Crit Value Called To Dr vickie alves Crit Value Called By Robert cordova Crit Value Read Back Y Blood Gas Notified Time 845 Potassium Carbon Dioxide Anion Gap BUN Creatinine Est GFR ( Amer) Est GFR (Non-Af Amer) Random Glucose Calcium Total Bilirubin AST ALT Alkaline Phosphatase Total Creatine Kinase CK-MB (Mass) Troponin I NT-Pro-B Natriuret Pep Total Protein Albumin Globulin Albumin/Globulin Ratio TSH 3rd Generation Arterial Blood Potassium Venous Blood Potassium 4.3 Urine Color Urine Clarity Urine pH Ur Specific [place] Urine Protein Urine Glucose (UA) Urine Ketones Urine Blood Urine Nitrate Urine Bilirubin Urine Urobilinogen Ur Leukocyte Esterase Urine WBC (Auto) Urine RBC (Auto) Hyaline Casts Stool Occult Blood Blood Type Antibody Screen 04/13/17 04/13/17 04/13/17 08:47 09:32 10:00 WBC RBC Hgb Hct MCV MCH MCHC RDW Plt Count MPV Neut % (Auto) Lymph % (Auto) [place] % (Auto) Eos % (Auto) Baso % (Auto) Neut # Lymph # [place] # Eos # Baso # Neutrophils % (Manual) Band Neutrophils % Lymphocytes % (Manual) Monocytes % (Manual) Eosinophils % (Manual) Platelet Estimate Polychromasia Hypochromasia (manual) Basophilic Stippling Anisocytosis (manual) PT INR APTT Puncture Site Rra pCO2 70 H pO2 191 H HCO3 28.7 H ABG pH 7.29 L ABG Total CO2 35.8 H ABG O2 Saturation 99.8 H ABG Base Excess 4.8 H Shawn Test Pos ABG Potassium 3.8 VBG pH VBG pCO2 VBG HCO3 VBG Total CO2 VBG O2 Sat (Calc) VBG Base Excess VBG Potassium A-a O2 Difference 149.0 Respiratory Index 0.8 Sodium 139 143.0 Chloride 100 112.0 H Glucose 147 H Lactate 1.5 Vent Mode A/c Mechanical Rate 12 FiO2 60.0 Tidal Volume 500 PEEP 5 Crit Value Called To Crit Value Called By Crit Value Read Back Blood Gas Notified Time Potassium 3.6 Carbon Dioxide 30 Anion Gap 12 BUN 21 H Creatinine 0.9 Est GFR ( Amer) > 60 Est GFR (Non-Af Amer) > 60 Random Glucose 151 H Calcium 7.4 L Total Bilirubin 0.5 AST 29 ALT 33 Alkaline Phosphatase 54 Total Creatine Kinase 23 L CK-MB (Mass) 0.51 Troponin I < 0.0120 NT-Pro-B Natriuret Pep 332 Total Protein 6.0 L Albumin 3.1 L Globulin 3.0 Albumin/Globulin Ratio 1.0 TSH 3rd Generation 13.70 H Arterial Blood Potassium 3.8 Venous Blood Potassium Urine Color Straw Urine Clarity Clear Urine pH 6.0 Ur Specific [place] 1.009 Urine Protein 1+ H Urine Glucose (UA) Normal Urine Ketones Negative Urine Blood Negative Urine Nitrate Negative Urine Bilirubin Negative Urine Urobilinogen Normal Ur Leukocyte Esterase Neg Urine WBC (Auto) < 1 Urine RBC (Auto) 1 Hyaline Casts 0-2 Stool Occult Blood Blood Type Antibody Screen 04/13/17 04/13/17 10:03 12:40 WBC RBC Hgb Hct MCV MCH MCHC RDW Plt Count MPV Neut % (Auto) Lymph % (Auto) [place] % (Auto) Eos % (Auto) Baso % (Auto) Neut # Lymph # [place] # Eos # Baso # Neutrophils % (Manual) Band Neutrophils % Lymphocytes % (Manual) Monocytes % (Manual) Eosinophils % (Manual) Platelet Estimate Polychromasia Hypochromasia (manual) Basophilic Stippling Anisocytosis (manual) PT INR APTT Puncture Site pCO2 pO2 HCO3 ABG pH ABG Total CO2 ABG O2 Saturation ABG Base Excess Shawn Test ABG Potassium VBG pH VBG pCO2 VBG HCO3 VBG Total CO2 VBG O2 Sat (Calc) VBG Base Excess VBG Potassium A-a O2 Difference Respiratory Index Sodium Chloride Glucose Lactate Vent Mode Mechanical Rate FiO2 Tidal Volume PEEP Crit Value Called To Crit Value Called By Crit Value Read Back Blood Gas Notified Time Potassium Carbon Dioxide Anion Gap BUN Creatinine Est GFR ( Amer) Est GFR (Non-Af Amer) Random Glucose Calcium Total Bilirubin AST ALT Alkaline Phosphatase Total Creatine Kinase CK-MB (Mass) Troponin I NT-Pro-B Natriuret Pep Total Protein Albumin Globulin Albumin/Globulin Ratio TSH 3rd Generation Arterial Blood Potassium Venous Blood Potassium Urine Color Urine Clarity Urine pH Ur Specific [place] Urine Protein Urine Glucose (UA) Urine Ketones Urine Blood Urine Nitrate Urine Bilirubin Urine Urobilinogen Ur Leukocyte Esterase Urine WBC (Auto) Urine RBC (Auto) Hyaline Casts Stool Occult Blood Positive H Blood Type A POSITIVE Antibody Screen Negative - Imaging and Cardiology CT scan - head Status: Image reviewed by me, Report reviewed by me (Multiple hypodense lesions with surrounding edema suspicious for metastatic cancer. ) Assessment & Plan (1) Metastatic cancer to brain Assessment and Plan: Likely causing worsening seizure due to surrounding edema. I recommend increasing Keppra to 500 mg Q12 after a loading dose of 1000 mg IV ONCE. Will start decadron 10 mg IV Q8 for the cerebral edema that is likely vasogenic. MRI of the brain is recommended with and without contrast for further characterization. Poor prognosis was communicated with the family and they understand that it may be futile to continue aggressive care. Thank you. Status: Acute Priority: High
[2017-04-13] MEDS ORDERED: LEVETIRACETAM IVPB ONE (18:00)
[2017-04-13] MEDS ORDERED: DEXTROSE 5% IVPB ONE (18:00)
[2017-04-13] MEDS ORDERED: Theophylline 200mg ER 24 hrs Cap PO SCH (18:00)
[2017-04-13] MEDS ORDERED: WATER IVPB ONE (18:00)
[2017-04-13] MEDS: Midazolam 2 MG/2 ML VIAL IVP PRN (21:54)
[2017-04-14] MEDS: Dexmedetomidine Hydrochloride 200 MCG in Sodium Chloride 0.9% 48 ML IV PRN ×2 (04:04→07:25)
[2017-04-14] MEDS: Midazolam 2 MG/2 ML VIAL IVP PRN ×2 (04:10→09:00)
[2017-04-14 04:56] LABS: ABG ALLEN TEST POS; ABG MECHANICAL RATE 12; ARTERIAL BLOOD GAS MODE PRVC; ARTERIAL BLOOD HGB O2 SAT 96.5 % (95.0-98.0); ATERIAL BLOOD GAS PEEP 5; CARBOXYHEMOGLOBIN 1.8 % (0.5-1.5); DRAW SITE RR; HHB 0.7 % (0.0-5.0)
[2017-04-14] MEDS: Piperacill/Tazo 3.375gm in Dex 3.375 GM/50 ML BAG IVPB SCH ×3 (05:45→21:29)
[2017-04-14] MEDS: levETIRAcetam 500 MG in Sodium Chloride 0.9% 100 ML IVPB SCH ×2 (05:45→17:45)
[2017-04-14 06:33] LABS: BASO % 0.3 % (0.0-2.0); HEMATOCRIT 28.3 % (34.0-47.0); LYMPH # 0.4 K/uL (1.0-4.3); LYMPH % 3.4 % (20.0-40.0); MEAN CELL VOLUME 88.4 fL (81.0-99.0); MEAN CORPUSCULAR HEMOGLOBIN 28.7 pg (27.0-31.0); MEAN CORPUSCULAR HGB CONC 32.5 g/dL (33.0-37.0); MEAN PLATELET VOLUME 7.5 fL (7.2-11.7); MONO # 0.3 K/uL (0.0-0.8); PLATELET COUNT 393 K/uL (130-400); RED CELL DISTRIBUTION WIDTH 17.7 % (11.5-14.5); WHITE BLOOD COUNT 10.8 K/uL (4.8-10.8)
[2017-04-14 06:49] LABS: ALB/GLOB RATIO 1.1 (1.0-2.1); BILIRUBIN,TOTAL 0.7 mg/dL (0.2-1.3); CALCIUM 7.8 mg/dl (8.6-10.4); MAGNESIUM 1.9 mg/dL (1.6-2.3); PHOSPHOROUS 3.8 mg/dL (2.5-4.5); POTASSIUM 4.3 mmol/L (3.6-5.2); TOTAL PROTEIN 6.4 g/dL (6.3-8.3)
[2017-04-14 08:35] LABS: TOTAL CELLS COUNTED 100
[2017-04-14 08:36] LABS: GIANT PLATELETS PRESENT; LARGE PLATELETS PRESENT; NEUTROPHIL 82 % (50-75)
--- NOTE | 2017-04-14 08:44 | RAD ---
Chest x-ray single frontal view History: Follow-up. Comparison 04/13/2017 Findings: Lines and tubes in stable position. Persistent moderate loculated right pleural effusion. Biapical pleural thickening with upper lobe granulomatous changes. Prominent diffuse increased interstitial lung markings. Relative patchy airspace consolidation at the lateral aspect of the left upper to mid lung zone. Consolidative changes in the right hilar region extending to the right lung base. Linear atelectasis in the left mid lung zone with trace left pleural effusion and adjacent left basilar atelectasis. Cardiomegaly. Degenerative changes in the spine and shoulders. Surgical clips in the right axilla. Impression: Persistent moderate loculated right pleural effusion. Biapical pleural thickening with upper lobe granulomatous changes. Prominent diffuse increased interstitial lung markings. Relative patchy airspace consolidation at the lateral aspect of the left upper to mid lung zone. Consolidative changes in the right hilar region extending to the right lung base. Linear atelectasis in the left mid lung zone with trace left pleural effusion and adjacent left basilar atelectasis.
--- NOTE | 2017-04-14 09:10 | CP.PCM.PN ---
Subjective - Date & Time of Evaluation Date of Evaluation: 04/14/17 Time of Evaluation: 09:07 - Subjective Subjective: Ms. Coburn was seen and examined at the bedside in the ICU. She is on mechanical ventilation and precedex drip. She is responsive to both verbal and tactile stimuli. Her pupils are sluggish and reactive to light accommodation with pupil size of 4 bilaterally. She is able to follow commands such as opening her eyes, raising her bilateral lower and upper extremities. She has bilateral upper extremities mitten for patient safety. Objective - Vital Signs/Intake and Output Vital Signs (last 24 hours): Temp Pulse Resp BP Pulse Ox 97.9 F 78 25 H 122/72 100 04/14/17 04:00 04/14/17 06:22 04/14/17 06:22 04/14/17 06:22 04/14/17 06:22 Intake and Output: 04/14/17 04/14/17 06:59 18:59 Intake Total 607 18 Output Total 390 25 Balance 217 -7 - Medications Medications: Current Medications Albuterol/Ipratropium (Combivent Respimat) 2 puff IH RQID PRN PRN Reason: Wheezing Dexamethasone (Decadron Inj) 10 mg IVP Q8 [facility] Last Admin: 04/14/17 05:45 Dose: 10 mg Famotidine (Pepcid) 20 mg IVP Q12 AL Last Admin: 04/13/17 21:42 Dose: 20 mg Piperacillin Sod/Tazobactam Sod (Zosyn 3.375 Gm Iv Premix) 3.375 gm in 50 mls @ 100 mls/hr IVPB Q8 [facility] Last Admin: 04/14/17 05:45 Dose: 100 mls/hr Azithromycin 500 mg/ Sodium (Chloride) 250 mls @ 250 mls/hr IVPB DAILY AL Levetiracetam 500 mg/ Sodium (Chloride) 105 mls @ 420 mls/hr IVPB Q12H [facility] Last Admin: 04/14/17 05:45 Dose: 420 mls/hr Dexmedetomidine HCl 200 mcg/ (Sodium Chloride) 50 mls @ 3.62 mls/hr IV TITR PRN ; Protocol; 0.2 MCG/KG/HR PRN Reason: Sedation Last Admin: 04/14/17 07:25 Dose: 1 mcg/kg/hr, 18.14 mls/hr Midazolam HCl (Versed Inj) 2 mg IVP Q4 PRN PRN Reason: Agitation Last Admin: 04/14/17 04:10 Dose: 2 mg Theophylline (Sarabjit-24) 400 mg PO QPM AL Last Admin: 04/13/17 17:52 Dose: 400 mg - Labs Labs: 04/14/17 06:23 04/14/17 06:24 PT 12.3 SECONDS (9.7-12.2) H 04/13/17 08:47 INR 1.1 04/13/17 08:47 APTT 20 SECONDS (21-34) L 04/13/17 08:47 - Constitutional Appears: No Acute Distress - Head Exam Head Exam: ATRAUMATIC - Eye Exam Additional comments: equal size 4 mm, sluggish to light accommodation. - Neurological Exam Neuro motor strength exam: Left Upper Extremity: 5, Right Upper Extremity: 5, Left Lower Extremity: 5, Right Lower Extremity: 5 Additional comments: She is able to follow commands such as opening her eyes, raising her bilateral lower and upper extremities. Sensation remains intact. Assessment and Plan (1) Metastatic cancer to brain Assessment & Plan: Case discussed with Dr. Blanchard, continue all current medical regimen. There is no new recommendation from neurology. Status: Acute
[2017-04-14] MEDS: Azithromycin 500 MG in Sodium Chloride 0.9% 250 ML IVPB SCH (10:47)
--- NOTE | 2017-04-14 12:20 | CP.CCUPN ---
<Harvey Bower - Last Filed: 04/14/17 12:55> CCU Subjective - Physician Review Subjective (Free Text): 04/14/17 12:17 Patient seen and examined at bedside this morning. Patient is intubated. ROS unattainable due to patient's clinical condition. CCU Objective - Vital Signs / Intake & Output Vital Signs (Last 4 hours): Vital Signs Pulse Resp BP Pulse Ox 04/14/17 11:00 71 19 100 04/14/17 10:22 63 16 108/59 L 100 04/14/17 10:00 58 L 15 100 04/14/17 09:23 72 19 106/68 100 04/14/17 09:00 59 L 16 100 04/14/17 08:23 68 20 112/66 100 Intake and Output (Last 8hrs): Intake & Output 04/13/17 04/14/17 04/14/17 22:59 06:59 14:59 Intake Total 1482 360 299.5 Output Total 345 275 183 Balance 1137 85 116.5 Weight 127 lb 9.6 oz Intake: IV 188 48 Intake, IV Amount 909 312 299.5 Left Forearm 150 250 Left Wrist 234 162 Right Antecubital 375 Right Proximal Port 250 Antecubital left chest portacath 50 49.5 Blood Product 325 Red Blood Cells Cpd As1 325 Lr Unit [id number] Other 60 Output: Urine 345 275 183 Urethral (Bullard) 345 275 183 - Physical Exam Pupils: Positive for: PERRL Mouth: Positive for: Moist Mucous Membranes Respiratory/Chest: Positive for: Good Air Exchange, Decreased Breath Sounds (RLL ), Rhonchi, Other (on vent) Cardiovascular: Positive for: Regular Rate and Rhythm, Normal S1, S2 Abdomen: Negative for: Tenderness, Distention, Peritoneal Signs Upper Extremity: Positive for: Edema Lower Extremity: Positive for: Edema. Negative for: CALF TENDERNESS Skin: Positive for: Warm, Dry Psychiatric: Positive for: Lethargic, Other (intubated) - Medications Active Medications: Active Medications Generic Name Dose Route Start Last Admin Trade Name Freq PRN Reason Stop Dose Admin Albuterol/Ipratropium 2 puff 04/13/17 11:52 Combivent Respimat IH RQID PRN Wheezing Dexamethasone 10 mg 04/13/17 17:00 04/14/17 05:45 Decadron Inj IVP 10 mg Q8 AL Administration Famotidine 20 mg 04/13/17 22:00 04/14/17 09:53 Pepcid IVP 20 mg Q12 AL Administration Piperacillin Sod/Tazobactam Sod 3.375 gm in 50 mls @ 100 mls/hr 04/13/17 14: 00 04/14/17 05:45 Zosyn 3.375 Gm Iv Premix IVPB 100 mls/hr Q8 AL Administration Azithromycin 500 mg/ Sodium 250 mls @ 250 mls/hr 04/14/17 10:00 04/14/17 10: 47 Chloride IVPB 250 mls/hr DAILY AL Administration Levetiracetam 500 mg/ Sodium 105 mls @ 420 mls/hr 04/14/17 06:00 04/14/17 05: 45 Chloride IVPB 420 mls/hr Q12H AL Administration - Patient Studies Lab Studies: Microbiology Studies 04/13/17 Unknown Urine Culture - Final Urine No Growth (<1,000 CFU/ML) Lab Studies 04/14/17 04/14/17 04/14/17 Range/Units 06:24 06:23 04:50 WBC 10.8 (4.8-10.8) K/uL RBC 3.20 L (3.80-5.20) Mil/uL Hgb 9.2 L D (11.0-16.0) g/dL Hct 28.3 L (34.0-47.0) % MCV 88.4 D (81.0-99.0) fL MCH 28.7 (27.0-31.0) pg MCHC 32.5 L (33.0-37.0) g/dL RDW 17.7 H (11.5-14.5) % Plt Count 393 (130-400) K/uL MPV 7.5 (7.2-11.7) fL Neut % (Auto) 93.3 H (50.0-75.0) % Lymph % (Auto) 3.4 L (20.0-40.0) % Bollinger % (Auto) 3.0 (0.0-10.0) % Eos % (Auto) 0.0 (0.0-4.0) % Baso % (Auto) 0.3 (0.0-2.0) % Neut # 10.0 H (1.8-7.0) K/uL Lymph # 0.4 L (1.0-4.3) K/uL Bollinger # 0.3 (0.0-0.8) K/uL Eos # 0.0 (0.0-0.7) K/uL Baso # 0.0 (0.0-0.2) K/uL Neutrophils % (Manual) 82 H (50-75) % Band Neutrophils % 9 H (0-2) % Lymphocytes % (Manual) 3 L (20-40) % Monocytes % (Manual) 6 (0-10) % Platelet Estimate Normal (NORMAL) Plt Clumps, EDTA Large Platelets Present Giant Platelets Present Basophilic Stippling Slight Anisocytosis (manual) Slight Ovalocytes Slight Puncture Site Rr pCO2 42 (35-45) mm/Hg pO2 200 H (80-100) mm/Hg HCO3 28.0 (21-28) mmol/L ABG pH 7.44 (7.35-7.45) ABG Total CO2 29.8 H (22-28) mmol/L ABG O2 Saturation 99.3 H (95-98) % ABG Base Excess 3.9 H (-2.0-3.0) mmol/L ABG Hemoglobin 11.0 L (11.7-17.4) g/dL ABG Carboxyhemoglobin 1.8 H (0.5-1.5) % POC ABG HHb (Measured) 0.7 (0.0-5.0) % ABG Methemoglobin 1.0 (0.0-3.0) % Shawn Test Pos A-a O2 Difference 104.0 mm/Hg Respiratory Index 0.5 Hgb O2 Saturation 96.5 (95.0-98.0) % Vent Mode Prvc Mechanical Rate 12 FiO2 50.0 % Tidal Volume 450 PEEP 5 Sodium 136 (132-148) mmol/L Potassium 4.3 (3.6-5.2) mmol/L Chloride 98 (98-107) mmol/L Carbon Dioxide 29 (22-30) mmol/L Anion Gap 13 (10-20) BUN 26 H (7-17) mg/dL Creatinine 1.3 H (0.7-1.2) mg/dL Est GFR ( Amer) 49 Est GFR (Non-Af Amer) 41 Random Glucose 133 H (65-105) mg/dL Calcium 7.8 L (8.6-10.4) mg/dl Phosphorus 3.8 (2.5-4.5) mg/dL Magnesium 1.9 (1.6-2.3) mg/dL Total Bilirubin 0.7 (0.2-1.3) mg/dL AST 33 (14-36) U/L ALT 30 (9-52) U/L Alkaline Phosphatase 58 (38-126) U/L Total Protein 6.4 (6.3-8.3) g/dL Albumin 3.3 L (3.5-5.0) g/dL Globulin 3.1 (2.2-3.9) gm/dL Albumin/Globulin Ratio 1.1 (1.0-2.1) Blood Type Antibody Screen 04/13/17 Range/Units 12:40 WBC (4.8-10.8) K/uL RBC (3.80-5.20) Mil/uL Hgb (11.0-16.0) g/dL Hct (34.0-47.0) % MCV (81.0-99.0) fL MCH (27.0-31.0) pg MCHC (33.0-37.0) g/dL RDW (11.5-14.5) % Plt Count (130-400) K/uL MPV (7.2-11.7) fL Neut % (Auto) (50.0-75.0) % Lymph % (Auto) (20.0-40.0) % Bollinger % (Auto) (0.0-10.0) % Eos % (Auto) (0.0-4.0) % Baso % (Auto) (0.0-2.0) % Neut # (1.8-7.0) K/uL Lymph # (1.0-4.3) K/uL Bollinger # (0.0-0.8) K/uL Eos # (0.0-0.7) K/uL Baso # (0.0-0.2) K/uL Neutrophils % (Manual) (50-75) % Band Neutrophils % (0-2) % Lymphocytes % (Manual) (20-40) % Monocytes % (Manual) (0-10) % Platelet Estimate (NORMAL) Plt Clumps, EDTA Large Platelets Giant Platelets Basophilic Stippling Anisocytosis (manual) Ovalocytes Puncture Site pCO2 (35-45) mm/Hg pO2 (80-100) mm/Hg HCO3 (21-28) mmol/L ABG pH (7.35-7.45) ABG Total CO2 (22-28) mmol/L ABG O2 Saturation (95-98) % ABG Base Excess (-2.0-3.0) mmol/L ABG Hemoglobin (11.7-17.4) g/dL ABG Carboxyhemoglobin (0.5-1.5) % POC ABG HHb (Measured) (0.0-5.0) % ABG Methemoglobin (0.0-3.0) % Shawn Test A-a O2 Difference mm/Hg Respiratory Index Hgb O2 Saturation (95.0-98.0) % Vent Mode Mechanical Rate FiO2 % Tidal Volume PEEP Sodium (132-148) mmol/L Potassium (3.6-5.2) mmol/L Chloride (98-107) mmol/L Carbon Dioxide (22-30) mmol/L Anion Gap (10-20) BUN (7-17) mg/dL Creatinine (0.7-1.2) mg/dL Est GFR ( Amer) Est GFR (Non-Af Amer) Random Glucose (65-105) mg/dL Calcium (8.6-10.4) mg/dl Phosphorus (2.5-4.5) mg/dL Magnesium (1.6-2.3) mg/dL Total Bilirubin (0.2-1.3) mg/dL AST (14-36) U/L ALT (9-52) U/L Alkaline Phosphatase (38-126) U/L Total Protein (6.3-8.3) g/dL Albumin (3.5-5.0) g/dL Globulin (2.2-3.9) gm/dL Albumin/Globulin Ratio (1.0-2.1) Blood Type A POSITIVE Antibody Screen Negative Laboratory Results - last 24 hr 04/13/17 04/14/17 04/14/17 12:40 04:50 06:23 WBC 10.8 RBC 3.20 L Hgb 9.2 L D Hct 28.3 L MCV 88.4 D MCH 28.7 MCHC 32.5 L RDW 17.7 H Plt Count 393 MPV 7.5 Neut % (Auto) 93.3 H Lymph % (Auto) 3.4 L Bollinger % (Auto) 3.0 Eos % (Auto) 0.0 Baso % (Auto) 0.3 Neut # 10.0 H Lymph # 0.4 L Bollinger # 0.3 Eos # 0.0 Baso # 0.0 Neutrophils % (Manual) 82 H Band Neutrophils % 9 H Lymphocytes % (Manual) 3 L Monocytes % (Manual) 6 Platelet Estimate Normal Plt Clumps, EDTA Large Platelets Present Giant Platelets Present Basophilic Stippling Slight Anisocytosis (manual) Slight Ovalocytes Slight Puncture Site Rr pCO2 42 pO2 200 H HCO3 28.0 ABG pH 7.44 ABG Total CO2 29.8 H ABG O2 Saturation 99.3 H ABG Base Excess 3.9 H ABG Hemoglobin 11.0 L ABG Carboxyhemoglobin 1.8 H POC ABG HHb (Measured) 0.7 ABG Methemoglobin 1.0 Shawn Test Pos A-a O2 Difference 104.0 Respiratory Index 0.5 Hgb O2 Saturation 96.5 Vent Mode Prvc Mechanical Rate 12 FiO2 50.0 Tidal Volume 450 PEEP 5 Sodium Potassium Chloride Carbon Dioxide Anion Gap BUN Creatinine Est GFR ( Amer) Est GFR (Non-Af Amer) Random Glucose Calcium Phosphorus Magnesium Total Bilirubin AST ALT Alkaline Phosphatase Total Protein Albumin Globulin Albumin/Globulin Ratio Blood Type A POSITIVE Antibody Screen Negative 04/14/17 06:24 WBC RBC Hgb Hct MCV MCH MCHC RDW Plt Count MPV Neut % (Auto) Lymph % (Auto) Bollinger % (Auto) Eos % (Auto) Baso % (Auto) Neut # Lymph # Bollinger # Eos # Baso # Neutrophils % (Manual) Band Neutrophils % Lymphocytes % (Manual) Monocytes % (Manual) Platelet Estimate Plt Clumps, EDTA Large Platelets Giant Platelets Basophilic Stippling Anisocytosis (manual) Ovalocytes Puncture Site pCO2 pO2 HCO3 ABG pH ABG Total CO2 ABG O2 Saturation ABG Base Excess ABG Hemoglobin ABG Carboxyhemoglobin POC ABG HHb (Measured) ABG Methemoglobin Shawn Test A-a O2 Difference Respiratory Index Hgb O2 Saturation Vent Mode Mechanical Rate FiO2 Tidal Volume PEEP Sodium 136 Potassium 4.3 Chloride 98 Carbon Dioxide 29 Anion Gap 13 BUN 26 H Creatinine 1.3 H Est GFR ( Amer) 49 Est GFR (Non-Af Amer) 41 Random Glucose 133 H Calcium 7.8 L Phosphorus 3.8 Magnesium 1.9 Total Bilirubin 0.7 AST 33 ALT 30 Alkaline Phosphatase 58 Total Protein 6.4 Albumin 3.3 L Globulin 3.1 Albumin/Globulin Ratio 1.1 Blood Type Antibody Screen Fingerstick Blood Sugar Results: 167 Review of Systems - Review of Systems Systems not reviewed;Unavailable: Intubated Assessment/Plan - Assessment and Plan (Free Text) Assessment: Patient is a 66 year old female with PMH of metastatic lung CA with mets to bone and brain, who was intubated in the field by EMS due to acute respiratory failure with hypoxemia. Plan: DNR Respiratory: Lung CA with mets to bone and brain. hx of COPD CXR - Persistent moderate loculated right pleural effusion. Biapical pleural thickening with upper lobe granulomatous changes. Prominent diffuse increased interstitial lung markings. Relative patchy airspace consolidation at the lateral aspect of the left upper to mid lung zone. Consolidative changes in the right hilar region extending to the right lung base. Linear atelectasis in the left mid lung zone with trace left pleural effusion and adjacent left basilar atelectasis. - these findings are unchanged compared to CT of chest on 11/02/16 Successful extubation. Precedex drip discontinued. Azithromycin 500mg IVPB daily - poss. pneumonia Zosyn 3.337 IVPB daily - poss. pneumonia Neuro: Keppra 500mg IVPB q12 Decadron 10mg IVP q8 Versed 2mg IVP q4 PRN for agitation Head CT w/o - Multi focal areas of prominent low attenuation seen throughout the brain with superimposed areas of more central increased attenuation at several of these levels. These areas of or uncertain clinical etiology and may represent hemorrhagic metastatic disease versus hemorrhagic infarcts versus multifocal infarcts versus multifocal metastatic disease versus additional etiology. f/u MRI Brain w/ and w/o Cardio: hx of CHF Endo: hx of hypothyroidism Case discussed with Dr. Gomez Valentinn PGY1 <Ute Dyer - Last Filed: 04/14/17 13:34> CCU Objective - Vital Signs / Intake & Output Vital Signs (Last 4 hours): Vital Signs Pulse Resp BP Pulse Ox 04/14/17 11:00 71 19 100 04/14/17 10:22 63 16 108/59 L 100 04/14/17 10:00 58 L 15 100 Intake and Output (Last 8hrs): Intake & Output 04/13/17 04/14/17 04/14/17 22:59 06:59 14:59 Intake Total 1482 360 299.5 Output Total 345 275 183 Balance 1137 85 116.5 Weight 127 lb 9.6 oz Intake: IV 188 48 Intake, IV Amount 909 312 299.5 Left Forearm 150 250 Left Wrist 234 162 Right Antecubital 375 Right Proximal Port 250 Antecubital left chest portacath 50 49.5 Blood Product 325 Red Blood Cells Cpd As1 325 Lr Unit [id number] Other 60 Output: Urine 345 275 183 Urethral (Bullard) 345 275 183 - Medications Active Medications: Active Medications Generic Name Dose Route Start Last Admin Trade Name Freq PRN Reason Stop Dose Admin Albuterol/Ipratropium 2 puff 04/13/17 11:52 Combivent Respimat IH RQID PRN Wheezing Dexamethasone 10 mg 04/13/17 17:00 04/14/17 05:45 Decadron Inj IVP 10 mg Q8 AL Administration Famotidine 20 mg 04/13/17 22:00 04/14/17 09:53 Pepcid IVP 20 mg Q12 AL Administration Piperacillin Sod/Tazobactam Sod 3.375 gm in 50 mls @ 100 mls/hr 04/13/17 14: 00 04/14/17 05:45 Zosyn 3.375 Gm Iv Premix IVPB 100 mls/hr Q8 AL Administration Azithromycin 500 mg/ Sodium 250 mls @ 250 mls/hr 04/14/17 10:00 04/14/17 10: 47 Chloride IVPB 250 mls/hr DAILY AL Administration Levetiracetam 500 mg/ Sodium 105 mls @ 420 mls/hr 04/14/17 06:00 04/14/17 05: 45 Chloride IVPB 420 mls/hr Q12H AL Administration - Patient Studies Lab Studies: Microbiology Studies 04/13/17 Unknown Urine Culture - Final Urine No Growth (<1,000 CFU/ML) Lab Studies 04/14/17 04/14/17 04/14/17 Range/Units 06:24 06:23 04:50 WBC 10.8 (4.8-10.8) K/uL RBC 3.20 L (3.80-5.20) Mil/uL Hgb 9.2 L D (11.0-16.0) g/dL Hct 28.3 L (34.0-47.0) % MCV 88.4 D (81.0-99.0) fL MCH 28.7 (27.0-31.0) pg MCHC 32.5 L (33.0-37.0) g/dL RDW 17.7 H (11.5-14.5) % Plt Count 393 (130-400) K/uL MPV 7.5 (7.2-11.7) fL Neut % (Auto) 93.3 H (50.0-75.0) % Lymph % (Auto) 3.4 L (20.0-40.0) % Bollinger % (Auto) 3.0 (0.0-10.0) % Eos % (Auto) 0.0 (0.0-4.0) % Baso % (Auto) 0.3 (0.0-2.0) % Neut # 10.0 H (1.8-7.0) K/uL Lymph # 0.4 L (1.0-4.3) K/uL Bollinger # 0.3 (0.0-0.8) K/uL Eos # 0.0 (0.0-0.7) K/uL Baso # 0.0 (0.0-0.2) K/uL Neutrophils % (Manual) 82 H (50-75) % Band Neutrophils % 9 H (0-2) % Lymphocytes % (Manual) 3 L (20-40) % Monocytes % (Manual) 6 (0-10) % Platelet Estimate Normal (NORMAL) Plt Clumps, EDTA Large Platelets Present Giant Platelets Present Basophilic Stippling Slight Anisocytosis (manual) Slight Ovalocytes Slight Puncture Site Rr pCO2 42 (35-45) mm/Hg pO2 200 H (80-100) mm/Hg HCO3 28.0 (21-28) mmol/L ABG pH 7.44 (7.35-7.45) ABG Total CO2 29.8 H (22-28) mmol/L ABG O2 Saturation 99.3 H (95-98) % ABG Base Excess 3.9 H (-2.0-3.0) mmol/L ABG Hemoglobin 11.0 L (11.7-17.4) g/dL ABG Carboxyhemoglobin 1.8 H (0.5-1.5) % POC ABG HHb (Measured) 0.7 (0.0-5.0) % ABG Methemoglobin 1.0 (0.0-3.0) % Shawn Test Pos A-a O2 Difference 104.0 mm/Hg Respiratory Index 0.5 Hgb O2 Saturation 96.5 (95.0-98.0) % Vent Mode Prvc Mechanical Rate 12 FiO2 50.0 % Tidal Volume 450 PEEP 5 Sodium 136 (132-148) mmol/L Potassium 4.3 (3.6-5.2) mmol/L Chloride 98 (98-107) mmol/L Carbon Dioxide 29 (22-30) mmol/L Anion Gap 13 (10-20) BUN 26 H (7-17) mg/dL Creatinine 1.3 H (0.7-1.2) mg/dL Est GFR ( Amer) 49 Est GFR (Non-Af Amer) 41 Random Glucose 133 H (65-105) mg/dL Calcium 7.8 L (8.6-10.4) mg/dl Phosphorus 3.8 (2.5-4.5) mg/dL Magnesium 1.9 (1.6-2.3) mg/dL Total Bilirubin 0.7 (0.2-1.3) mg/dL AST 33 (14-36) U/L ALT 30 (9-52) U/L Alkaline Phosphatase 58 (38-126) U/L Total Protein 6.4 (6.3-8.3) g/dL Albumin 3.3 L (3.5-5.0) g/dL Globulin 3.1 (2.2-3.9) gm/dL Albumin/Globulin Ratio 1.1 (1.0-2.1) Blood Type Antibody Screen 04/13/17 Range/Units 12:40 WBC (4.8-10.8) K/uL RBC (3.80-5.20) Mil/uL Hgb (11.0-16.0) g/dL Hct (34.0-47.0) % MCV (81.0-99.0) fL MCH (27.0-31.0) pg MCHC (33.0-37.0) g/dL RDW (11.5-14.5) % Plt Count (130-400) K/uL MPV (7.2-11.7) fL Neut % (Auto) (50.0-75.0) % Lymph % (Auto) (20.0-40.0) % Bollinger % (Auto) (0.0-10.0) % Eos % (Auto) (0.0-4.0) % Baso % (Auto) (0.0-2.0) % Neut # (1.8-7.0) K/uL Lymph # (1.0-4.3) K/uL Bollinger # (0.0-0.8) K/uL Eos # (0.0-0.7) K/uL Baso # (0.0-0.2) K/uL Neutrophils % (Manual) (50-75) % Band Neutrophils % (0-2) % Lymphocytes % (Manual) (20-40) % Monocytes % (Manual) (0-10) % Platelet Estimate (NORMAL) Plt Clumps, EDTA Large Platelets Giant Platelets Basophilic Stippling Anisocytosis (manual) Ovalocytes Puncture Site pCO2 (35-45) mm/Hg pO2 (80-100) mm/Hg HCO3 (21-28) mmol/L ABG pH (7.35-7.45) ABG Total CO2 (22-28) mmol/L ABG O2 Saturation (95-98) % ABG Base Excess (-2.0-3.0) mmol/L ABG Hemoglobin (11.7-17.4) g/dL ABG Carboxyhemoglobin (0.5-1.5) % POC ABG HHb (Measured) (0.0-5.0) % ABG Methemoglobin (0.0-3.0) % Shawn Test A-a O2 Difference mm/Hg Respiratory Index Hgb O2 Saturation (95.0-98.0) % Vent Mode Mechanical Rate FiO2 % Tidal Volume PEEP Sodium (132-148) mmol/L Potassium (3.6-5.2) mmol/L Chloride (98-107) mmol/L Carbon Dioxide (22-30) mmol/L Anion Gap (10-20) BUN (7-17) mg/dL Creatinine (0.7-1.2) mg/dL Est GFR ( Amer) Est GFR (Non-Af Amer) Random Glucose (65-105) mg/dL Calcium (8.6-10.4) mg/dl Phosphorus (2.5-4.5) mg/dL Magnesium (1.6-2.3) mg/dL Total Bilirubin (0.2-1.3) mg/dL AST (14-36) U/L ALT (9-52) U/L Alkaline Phosphatase (38-126) U/L Total Protein (6.3-8.3) g/dL Albumin (3.5-5.0) g/dL Globulin (2.2-3.9) gm/dL Albumin/Globulin Ratio (1.0-2.1) Blood Type A POSITIVE Antibody Screen Negative Laboratory Results - last 24 hr 04/13/17 04/14/17 04/14/17 12:40 04:50 06:23 WBC 10.8 RBC 3.20 L Hgb 9.2 L D Hct 28.3 L MCV 88.4 D MCH 28.7 MCHC 32.5 L RDW 17.7 H Plt Count 393 MPV 7.5 Neut % (Auto) 93.3 H Lymph % (Auto) 3.4 L Bollinger % (Auto) 3.0 Eos % (Auto) 0.0 Baso % (Auto) 0.3 Neut # 10.0 H Lymph # 0.4 L Bollinger # 0.3 Eos # 0.0 Baso # 0.0 Neutrophils % (Manual) 82 H Band Neutrophils % 9 H Lymphocytes % (Manual) 3 L Monocytes % (Manual) 6 Platelet Estimate Normal Plt Clumps, EDTA Large Platelets Present Giant Platelets Present Basophilic Stippling Slight Anisocytosis (manual) Slight Ovalocytes Slight Puncture Site Rr pCO2 42 pO2 200 H HCO3 28.0 ABG pH 7.44 ABG Total CO2 29.8 H ABG O2 Saturation 99.3 H ABG Base Excess 3.9 H ABG Hemoglobin 11.0 L ABG Carboxyhemoglobin 1.8 H POC ABG HHb (Measured) 0.7 ABG Methemoglobin 1.0 Shawn Test Pos A-a O2 Difference 104.0 Respiratory Index 0.5 Hgb O2 Saturation 96.5 Vent Mode Prvc Mechanical Rate 12 FiO2 50.0 Tidal Volume 450 PEEP 5 Sodium Potassium Chloride Carbon Dioxide Anion Gap BUN Creatinine Est GFR ( Amer) Est GFR (Non-Af Amer) Random Glucose Calcium Phosphorus Magnesium Total Bilirubin AST ALT Alkaline Phosphatase Total Protein Albumin Globulin Albumin/Globulin Ratio Blood Type A POSITIVE Antibody Screen Negative 04/14/17 06:24 WBC RBC Hgb Hct MCV MCH MCHC RDW Plt Count MPV Neut % (Auto) Lymph % (Auto) Bollinger % (Auto) Eos % (Auto) Baso % (Auto) Neut # Lymph # Bollinger # Eos # Baso # Neutrophils % (Manual) Band Neutrophils % Lymphocytes % (Manual) Monocytes % (Manual) Platelet Estimate Plt Clumps, EDTA Large Platelets Giant Platelets Basophilic Stippling Anisocytosis (manual) Ovalocytes Puncture Site pCO2 pO2 HCO3 ABG pH ABG Total CO2 ABG O2 Saturation ABG Base Excess ABG Hemoglobin ABG Carboxyhemoglobin POC ABG HHb (Measured) ABG Methemoglobin Shawn Test A-a O2 Difference Respiratory Index Hgb O2 Saturation Vent Mode Mechanical Rate FiO2 Tidal Volume PEEP Sodium 136 Potassium 4.3 Chloride 98 Carbon Dioxide 29 Anion Gap 13 BUN 26 H Creatinine 1.3 H Est GFR ( Amer) 49 Est GFR (Non-Af Amer) 41 Random Glucose 133 H Calcium 7.8 L Phosphorus 3.8 Magnesium 1.9 Total Bilirubin 0.7 AST 33 ALT 30 Alkaline Phosphatase 58 Total Protein 6.4 Albumin 3.3 L Globulin 3.1 Albumin/Globulin Ratio 1.1 Blood Type Antibody Screen Attending/Attestation - Attestation I have personally seen and examined this patient.: Yes I have fully participated in the care of the patient.: Yes I have reviewed all pertinent clinical information: Yes Notes (Text): 04/14/17 13:28 The patient is critically ill. Family sign DNR. Patient is overall not improving, he become bradycardia, hypotension. Patient condition worsened. Patient become asystolic, and pronounced at 1:10 PM. Family of bedside. Spoke to the family.
--- NOTE | 2017-04-14 12:42 | CP.PCM.PN ---
Subjective - Date & Time of Evaluation Date of Evaluation: 04/14/17 Time of Evaluation: 09:00 - Subjective Subjective: events noted iv rx in progress Objective - Vital Signs/Intake and Output Vital Signs (last 24 hours): Temp Pulse Resp BP Pulse Ox 97.3 F L 71 19 108/59 L 100 04/14/17 08:00 04/14/17 11:00 04/14/17 11:00 04/14/17 10:22 04/14/17 11:00 Intake and Output: 04/14/17 04/14/17 06:59 18:59 Intake Total 607 299.5 Output Total 390 183 Balance 217 116.5 - Medications Medications: Current Medications Albuterol/Ipratropium (Combivent Respimat) 2 puff IH RQID PRN PRN Reason: Wheezing Dexamethasone (Decadron Inj) 10 mg IVP Q8 [facility] Last Admin: 04/14/17 05:45 Dose: 10 mg Famotidine (Pepcid) 20 mg IVP Q12 [facility] Last Admin: 04/14/17 09:53 Dose: 20 mg Piperacillin Sod/Tazobactam Sod (Zosyn 3.375 Gm Iv Premix) 3.375 gm in 50 mls @ 100 mls/hr IVPB Q8 [facility] Last Admin: 04/14/17 05:45 Dose: 100 mls/hr Azithromycin 500 mg/ Sodium (Chloride) 250 mls @ 250 mls/hr IVPB DAILY [facility] Last Admin: 04/14/17 10:47 Dose: 250 mls/hr Levetiracetam 500 mg/ Sodium (Chloride) 105 mls @ 420 mls/hr IVPB Q12H [facility] Last Admin: 04/14/17 05:45 Dose: 420 mls/hr - Labs Labs: 04/14/17 06:23 04/14/17 06:24 PT 12.3 SECONDS (9.7-12.2) H 04/13/17 08:47 INR 1.1 04/13/17 08:47 APTT 20 SECONDS (21-34) L 04/13/17 08:47 - Constitutional Appears: Cachectic, Chronically Ill - Eye Exam Eye Exam: absent: Scleral icterus - ENT Exam ENT Exam: Mucous Membranes Dry - Neck Exam Neck Exam: absent: Lymphadenopathy - Respiratory Exam Respiratory Exam: Decreased Breath Sounds - Cardiovascular Exam Cardiovascular Exam: REGULAR RHYTHM - GI/Abdominal Exam GI & Abdominal Exam: Distended, Soft - Rectal Exam Rectal Exam: Deferred Assessment and Plan (1) Acute respiratory failure with hypoxemia Status: Acute (2) Anemia Status: Acute (3) CHF exacerbation Status: Acute (4) Hypoxia Status: Acute (5) Respiratory distress Status: Acute (6) Lung cancer Status: Chronic - Assessment and Plan (Free Text) Assessment: cont rx iv rx await cultures
--- NOTE | 2017-04-14 18:39 | CP.PCM.CON ---
History of Present Illness - History of Present Illness History of Present Illness: 66 yo woman known to the office, history of breast cancer treated in 1990, diagnosed with lung cancer, adenocarcinoma, underwent resection in 2013, found to have metastatic disease soon after, S/P several treatments including Carboplatin with Alimta and Tarceva. Because of disease progression in the lungs, bones and liver, the patient became more SOB and bedbound, unable to receive planned immunotherapy, it was recommended that chemo be stopped and she go on home hospice, but the patient declined. 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 and is intubated and sedated Past Patient History - Past Medical History & Family History Past Medical History?: Yes - Past Social History Smoking Status: Current Some Days Smoker - CARDIAC Hx Hypercholesterolemia: Yes - PULMONARY Hx Bronchitis: Yes Hx Chronic Obstructive Pulmonary Disease (COPD): Yes - NEUROLOGICAL Hx Alzheimer's Disease: No Hx Dementia: No Hx Migraine: No Hx Multiple Sclerosis: No Hx Parkinson's Disease: No Hx Seizures: No Hx Transient Ischemic Attacks (TIA): No - HEENT Hx HEENT Problems: Yes Hx Blind: No Hx Cataracts: Yes (IOL b/l) - RENAL Hx Chronic Kidney Disease: No - ENDOCRINE/METABOLIC Hx Hypothyroidism: Yes - HEMATOLOGICAL/ONCOLOGICAL Hx Blood Transfusions: No Hx Blood Transfusion Reaction: No - INTEGUMENTARY Hx Dermatological Problems: No - MUSCULOSKELETAL/RHEUMATOLOGICAL Hx Arthritis: Yes - GASTROINTESTINAL Hx Gastrointestinal Disorders: No - GENITOURINARY/GYNECOLOGICAL Hx Genitourinary Disorders: No - PSYCHIATRIC Hx Substance Use: No - SURGICAL HISTORY Hx Tonsillectomy: Yes (1961) - ANESTHESIA Hx Anesthesia Reactions: Yes (n/v) Hx Malignant Hyperthermia: No Meds Allergies/Adverse Reactions: Allergies Allergy/AdvReac Type Severity Reaction Status Date / Time SYNTHROID(COMPOUND) Allergy Severe RASH Uncoded 04/13/17 08:38 surgical tape Allergy Intermediate blisters Uncoded 04/13/17 08:38 versed AdvReac Intermediate pt reports Uncoded 04/13/17 08:38 she couldn't wake up after versed - Medications Medications: Current Medications Albuterol/Ipratropium (Combivent Respimat) 2 puff IH RQID PRN PRN Reason: Wheezing Dexamethasone (Decadron Inj) 10 mg IVP Q8 [place] Last Admin: 04/14/17 14:12 Dose: 10 mg Famotidine (Pepcid) 20 mg IVP Q12 [facility] Last Admin: 04/14/17 09:53 Dose: 20 mg Piperacillin Sod/Tazobactam Sod (Zosyn 3.375 Gm Iv Premix) 3.375 gm in 50 mls @ 100 mls/hr IVPB Q8 [facility] Last Admin: 04/14/17 14:11 Dose: 100 mls/hr Azithromycin 500 mg/ Sodium (Chloride) 250 mls @ 250 mls/hr IVPB DAILY [facility] Last Admin: 04/14/17 10:47 Dose: 250 mls/hr Levetiracetam 500 mg/ Sodium (Chloride) 55 mls @ 110 mls/hr IVPB Q12H [facility] Results - Vital Signs Recent Vital Signs: Last Vital Signs Temp 97.8 F 04/14/17 16:00 Pulse 99 H 04/14/17 17:00 Resp 21 04/14/17 17:00 BP 121/77 04/14/17 16:22 Pulse Ox 98 04/14/17 17:00 - Labs Result Diagrams: 04/14/17 06:23 04/14/17 06:24 Labs: Laboratory Results - last 24 hr 04/14/17 04/14/17 04/14/17 04:50 06:23 06:24 WBC 10.8 RBC 3.20 L Hgb 9.2 L D Hct 28.3 L MCV 88.4 D MCH 28.7 MCHC 32.5 L RDW 17.7 H Plt Count 393 MPV 7.5 Neut % (Auto) 93.3 H Lymph % (Auto) 3.4 L [place] % (Auto) 3.0 Eos % (Auto) 0.0 Baso % (Auto) 0.3 Neut # 10.0 H Lymph # 0.4 L [place] # 0.3 Eos # 0.0 Baso # 0.0 Neutrophils % (Manual) 82 H Band Neutrophils % 9 H Lymphocytes % (Manual) 3 L Monocytes % (Manual) 6 Platelet Estimate Normal Plt Clumps, EDTA Large Platelets Present Giant Platelets Present Basophilic Stippling Slight Anisocytosis (manual) Slight Ovalocytes Slight Puncture Site Rr pCO2 42 pO2 200 H HCO3 28.0 ABG pH 7.44 ABG Total CO2 29.8 H ABG O2 Saturation 99.3 H ABG Base Excess 3.9 H ABG Hemoglobin 11.0 L ABG Carboxyhemoglobin 1.8 H POC ABG HHb (Measured) 0.7 ABG Methemoglobin 1.0 Shawn Test Pos A-a O2 Difference 104.0 Respiratory Index 0.5 Hgb O2 Saturation 96.5 Vent Mode Prvc Mechanical Rate 12 FiO2 50.0 Tidal Volume 450 PEEP 5 Sodium 136 Potassium 4.3 Chloride 98 Carbon Dioxide 29 Anion Gap 13 BUN 26 H Creatinine 1.3 H Est GFR ( Amer) 49 Est GFR (Non-Af Amer) 41 Random Glucose 133 H Calcium 7.8 L Phosphorus 3.8 Magnesium 1.9 Total Bilirubin 0.7 AST 33 ALT 30 Alkaline Phosphatase 58 Total Protein 6.4 Albumin 3.3 L Globulin 3.1 Albumin/Globulin Ratio 1.1 Assessment & Plan - Assessment and Plan (Free Text) Assessment: 66 yo woman with advanced, terminal adenocarcinoma of the lung, agree with decadron. Would not recommend any further treatment, i.e, palliative RT, because of the lack of any benefit in patients with poor performance status. Will talk to family about DNR /palliative care.
--- NOTE | 2017-04-14 18:56 | CP.PCM.PN ---
Subjective - Date & Time of Evaluation Date of Evaluation: 04/14/17 Time of Evaluation: 12:20 - Subjective Subjective: clinically same Objective - Vital Signs/Intake and Output Vital Signs (last 24 hours): Temp Pulse Resp BP Pulse Ox 97.8 F 110 H 22 136/80 98 04/14/17 16:00 04/14/17 18:23 04/14/17 18:23 04/14/17 18:23 04/14/17 18:23 Intake and Output: 04/14/17 04/14/17 06:59 18:59 Intake Total 607 469.5 Output Total 390 523 Balance 217 -53.5 - Medications Medications: Current Medications Albuterol/Ipratropium (Combivent Respimat) 2 puff IH RQID PRN PRN Reason: Wheezing Dexamethasone (Decadron Inj) 10 mg IVP Q8 [facility] Last Admin: 04/14/17 14:12 Dose: 10 mg Famotidine (Pepcid) 20 mg IVP Q12 [facility] Last Admin: 04/14/17 09:53 Dose: 20 mg Piperacillin Sod/Tazobactam Sod (Zosyn 3.375 Gm Iv Premix) 3.375 gm in 50 mls @ 100 mls/hr IVPB Q8 [facility] Last Admin: 04/14/17 14:11 Dose: 100 mls/hr Azithromycin 500 mg/ Sodium (Chloride) 250 mls @ 250 mls/hr IVPB DAILY [facility] Last Admin: 04/14/17 10:47 Dose: 250 mls/hr Levetiracetam 500 mg/ Sodium (Chloride) 55 mls @ 110 mls/hr IVPB Q12H [facility] Last Admin: 04/14/17 18:43 Dose: Not Given - Labs Labs: 04/14/17 06:23 04/14/17 06:24 PT 12.3 SECONDS (9.7-12.2) H 04/13/17 08:47 INR 1.1 04/13/17 08:47 APTT 20 SECONDS (21-34) L 04/13/17 08:47
[2017-04-15] MEDS: Piperacill/Tazo 3.375gm in Dex 3.375 GM/50 ML BAG IVPB SCH ×3 (05:01→21:36)
[2017-04-15 06:49] LABS: BASO # 0.1 K/uL (0.0-0.2); BASO % 0.4 % (0.0-2.0); HEMATOCRIT 32.1 % (34.0-47.0); LYMPH # 0.3 K/uL (1.0-4.3); LYMPH % 1.7 % (20.0-40.0); MEAN CELL VOLUME 89.9 fL (81.0-99.0); MEAN CORPUSCULAR HEMOGLOBIN 28.6 pg (27.0-31.0); MEAN CORPUSCULAR HGB CONC 31.9 g/dL (33.0-37.0); MEAN PLATELET VOLUME 7.2 fL (7.2-11.7); MONO # 0.7 K/uL (0.0-0.8); MONO % 3.8 % (0.0-10.0); PLATELET COUNT 508 K/uL (130-400); RED CELL DISTRIBUTION WIDTH 17.7 % (11.5-14.5); WHITE BLOOD COUNT 18.4 K/uL (4.8-10.8)
[2017-04-15 06:59] LABS: ALB/GLOB RATIO 0.8 (1.0-2.1); BILIRUBIN,TOTAL 0.4 mg/dL (0.2-1.3); CALCIUM 8.1 mg/dl (8.6-10.4); MAGNESIUM 2.1 mg/dL (1.6-2.3); TOTAL PROTEIN 7.8 g/dL (6.3-8.3)
--- NOTE | 2017-04-15 08:16 | CP.PCM.PN ---
Subjective - Date & Time of Evaluation Date of Evaluation: 04/15/17 Time of Evaluation: 08:14 - Subjective Subjective: Ms. Coburn was seen and examined at the bedside. She is responsive to both verbal and tactile stimuli. She is on 100 non-rebreathing mask with Spo2- 100 % . She is unable to verbalize person, time, and place. She is able to follow simple commands. According to staff , she has episodes of confusion needing medication to calm her down. There was no untoward events overnight. Objective - Vital Signs/Intake and Output Vital Signs (last 24 hours): Temp Pulse Resp BP Pulse Ox 4 F L 120 H 17 135/79 100 04/15/17 04:00 04/15/17 07:23 04/15/17 07:23 04/15/17 07:23 04/15/17 07:23 Intake and Output: 04/15/17 04/15/17 06:59 18:59 Intake Total 200 0 Output Total 375 35 Balance -175 -35 - Medications Medications: Current Medications Albuterol/Ipratropium (Combivent Respimat) 2 puff IH RQID PRN PRN Reason: Wheezing Dexamethasone (Decadron Inj) 10 mg IVP Q8 [facility] Last Admin: 04/15/17 05:01 Dose: 10 mg Famotidine (Pepcid) 20 mg IVP Q12 [facility] Last Admin: 04/14/17 21:29 Dose: 20 mg Piperacillin Sod/Tazobactam Sod (Zosyn 3.375 Gm Iv Premix) 3.375 gm in 50 mls @ 100 mls/hr IVPB Q8 [facility] Last Admin: 04/15/17 05:01 Dose: 100 mls/hr Azithromycin 500 mg/ Sodium (Chloride) 250 mls @ 250 mls/hr IVPB DAILY [facility] Last Admin: 04/14/17 10:47 Dose: 250 mls/hr Levetiracetam 500 mg/ Sodium (Chloride) 55 mls @ 110 mls/hr IVPB Q12H [facility] Last Admin: 04/15/17 05:01 Dose: 110 mls/hr - Labs Labs: 04/15/17 06:43 04/15/17 06:36 PT 12.3 SECONDS (9.7-12.2) H 04/13/17 08:47 INR 1.1 04/13/17 08:47 APTT 20 SECONDS (21-34) L 04/13/17 08:47 - Constitutional Appears: No Acute Distress - Head Exam Head Exam: ATRAUMATIC - Eye Exam Additional comments: sluggish to react to light and size 4 mm equal in size. - Neurological Exam Neurological Exam: Awake Neuro motor strength exam: Left Upper Extremity: 3, Right Upper Extremity: 3, Left Lower Extremity: 3, Right Lower Extremity: 3 Additional comments: She is able to follow simple commands such as opening her eyes, mouth, lifting bilateral upper and lower extremities. Sensation is intact. Assessment and Plan (1) Metastatic cancer to brain Assessment & Plan: Case discussed with Dr. Blacnhard, continue all current medical regimen and recommends MRI of the brain is recommended with and without contrast for further characterization. DVT prophylaxis.PT/Ot eval and treat. Status: Acute
[2017-04-15 08:37] LABS: NEUTROPHIL 88 % (50-75); TOTAL CELLS COUNTED 100
[2017-04-15] MEDS: Azithromycin 500 MG in Sodium Chloride 0.9% 250 ML IVPB SCH (10:14)
--- NOTE | 2017-04-15 11:45 | CP.PCM.PN ---
Subjective - Date & Time of Evaluation Date of Evaluation: 04/15/17 Time of Evaluation: 09:00 - Subjective Subjective: exztubated lethargic iv rx reordered Objective - Vital Signs/Intake and Output Vital Signs (last 24 hours): Temp Pulse Resp BP Pulse Ox 4 F L 120 H 17 135/79 100 04/15/17 04:00 04/15/17 07:23 04/15/17 07:23 04/15/17 07:23 04/15/17 07:23 Intake and Output: 04/15/17 04/15/17 06:59 18:59 Intake Total 200 0 Output Total 375 35 Balance -175 -35 - Medications Medications: Current Medications Albuterol/Ipratropium (Combivent Respimat) 2 puff IH RQID PRN PRN Reason: Wheezing Dexamethasone (Decadron Inj) 10 mg IVP Q8 [facility] Last Admin: 04/15/17 05:01 Dose: 10 mg Famotidine (Pepcid) 20 mg IVP Q12 [facility] Last Admin: 04/15/17 10:14 Dose: 20 mg Piperacillin Sod/Tazobactam Sod (Zosyn 3.375 Gm Iv Premix) 3.375 gm in 50 mls @ 100 mls/hr IVPB Q8 [facility] Last Admin: 04/15/17 05:01 Dose: 100 mls/hr Azithromycin 500 mg/ Sodium (Chloride) 250 mls @ 250 mls/hr IVPB DAILY [facility] Last Admin: 04/15/17 10:14 Dose: 250 mls/hr Levetiracetam 500 mg/ Sodium (Chloride) 55 mls @ 110 mls/hr IVPB Q12H [facility] Last Admin: 04/15/17 05:01 Dose: 110 mls/hr - Labs Labs: 04/15/17 06:43 04/15/17 06:36 PT 12.3 SECONDS (9.7-12.2) H 04/13/17 08:47 INR 1.1 04/13/17 08:47 APTT 20 SECONDS (21-34) L 04/13/17 08:47 - Constitutional Appears: Confused, Cachectic, Chronically Ill - Head Exam Head Exam: NORMOCEPHALIC - Eye Exam Eye Exam: absent: Scleral icterus - ENT Exam ENT Exam: Mucous Membranes Dry - Neck Exam Neck Exam: absent: Lymphadenopathy - Respiratory Exam Respiratory Exam: Decreased Breath Sounds, Rhonchi - Cardiovascular Exam Cardiovascular Exam: REGULAR RHYTHM - GI/Abdominal Exam GI & Abdominal Exam: Distended, Soft - Rectal Exam Rectal Exam: Deferred - Exam Exam: NORMAL INSPECTION - Extremities Exam Extremities Exam: absent: Pedal Edema - Back Exam Back Exam: absent: CVA tenderness (L), CVA tenderness (R) - Neurological Exam Neurological Exam: Alert, Awake - Psychiatric Exam Psychiatric exam: Depressed - Skin Skin Exam: Dry Assessment and Plan (1) Acute respiratory failure with hypoxemia Status: Acute (2) Anemia Status: Acute (3) CHF exacerbation Status: Acute (4) Hypoxia Status: Acute (5) Respiratory distress Status: Acute (6) Lung cancer Status: Chronic
[2017-04-15] MEDS ORDERED: Vancomycin 1 gm/NS 200 ml 1 GM/200 ML BAG IVPB ONE (12:30)
[2017-04-15] MEDS ORDERED: Vitamins A & D Oint UD Foilpak TOP PRN (17:44)
--- NOTE | 2017-04-15 17:53 | CP.PCM.PN ---
Subjective - Date & Time of Evaluation Date of Evaluation: 04/15/17 Time of Evaluation: 12:00 - Subjective Subjective: clinically same Objective - Vital Signs/Intake and Output Vital Signs (last 24 hours): Temp Pulse Resp BP Pulse Ox 4 F L 121 H 18 135/79 100 04/15/17 04:00 04/15/17 14:47 04/15/17 14:47 04/15/17 07:23 04/15/17 14:47 Intake and Output: 04/15/17 04/15/17 06:59 18:59 Intake Total 200 0 Output Total 375 35 Balance -175 -35 - Medications Medications: Current Medications Albuterol/Ipratropium (Combivent Respimat) 2 puff IH RQID PRN PRN Reason: Wheezing Albuterol/Ipratropium (Duoneb 3 Mg/0.5 Mg (3 Ml) Ud) 3 ml INH RQ6 AL Dexamethasone (Decadron Inj) 10 mg IVP Q8 [facility] Last Admin: 04/15/17 14:55 Dose: 10 mg Famotidine (Pepcid) 20 mg IVP Q12 [facility] Last Admin: 04/15/17 10:14 Dose: 20 mg Piperacillin Sod/Tazobactam Sod (Zosyn 3.375 Gm Iv Premix) 3.375 gm in 50 mls @ 100 mls/hr IVPB Q8 [facility] Last Admin: 04/15/17 14:55 Dose: 100 mls/hr Azithromycin 500 mg/ Sodium (Chloride) 250 mls @ 250 mls/hr IVPB DAILY [facility] Last Admin: 04/15/17 10:14 Dose: 250 mls/hr Levetiracetam 500 mg/ Sodium (Chloride) 55 mls @ 110 mls/hr IVPB Q12H [facility] Last Admin: 04/15/17 17:19 Dose: 110 mls/hr Vitamin A (Vitamin A & D Oint Ud Foilpak) 0.5 ea TOP Q4H PRN PRN Reason: dryness - Labs Labs: 04/15/17 06:43 04/15/17 06:36 PT 12.3 SECONDS (9.7-12.2) H 04/13/17 08:47 INR 1.1 04/13/17 08:47 APTT 20 SECONDS (21-34) L 04/13/17 08:47
--- NOTE | 2017-04-15 18:33 | CP.PCM.PN ---
Subjective - Date & Time of Evaluation Date of Evaluation: 04/15/17 Time of Evaluation: 10:00 - Subjective Subjective: Patient seen and examined. Patient extubated yesterday after weaning trial Patient DNR/DNI Patient is responsive and in no respiratory distress Being treated for pneumonia, COPD exacerbation Objective - Vital Signs/Intake and Output Vital Signs (last 24 hours): Temp Pulse Resp BP Pulse Ox 97.4 F L 115 H 28 H 134/75 100 04/15/17 16:00 04/15/17 17:23 04/15/17 17:23 04/15/17 17:23 04/15/17 17:23 Intake and Output: 04/15/17 04/15/17 06:59 18:59 Intake Total 200 150 Output Total 375 1120 Balance -175 -970 - Medications Medications: Current Medications Albuterol/Ipratropium (Combivent Respimat) 2 puff IH RQID PRN PRN Reason: Wheezing Albuterol/Ipratropium (Duoneb 3 Mg/0.5 Mg (3 Ml) Ud) 3 ml INH RQ6 AL Dexamethasone (Decadron Inj) 10 mg IVP Q8 [facility] Last Admin: 04/15/17 14:55 Dose: 10 mg Famotidine (Pepcid) 20 mg IVP Q12 [facility] Last Admin: 04/15/17 10:14 Dose: 20 mg Piperacillin Sod/Tazobactam Sod (Zosyn 3.375 Gm Iv Premix) 3.375 gm in 50 mls @ 100 mls/hr IVPB Q8 [facility] Last Admin: 04/15/17 14:55 Dose: 100 mls/hr Azithromycin 500 mg/ Sodium (Chloride) 250 mls @ 250 mls/hr IVPB DAILY [facility] Last Admin: 04/15/17 10:14 Dose: 250 mls/hr Levetiracetam 500 mg/ Sodium (Chloride) 55 mls @ 110 mls/hr IVPB Q12H [facility] Last Admin: 04/15/17 17:19 Dose: 110 mls/hr Vitamin A (Vitamin A & D Oint Ud Foilpak) 0.5 ea TOP Q4H PRN PRN Reason: dryness - Labs Labs: 04/15/17 06:43 04/15/17 06:36 PT 12.3 SECONDS (9.7-12.2) H 04/13/17 08:47 INR 1.1 04/13/17 08:47 APTT 20 SECONDS (21-34) L 04/13/17 08:47 - Head Exam Head Exam: ATRAUMATIC, NORMOCEPHALIC - Eye Exam Eye Exam: Normal appearance - ENT Exam ENT Exam: Mucous Membranes Moist - Neck Exam Neck Exam: Normal Inspection - Respiratory Exam Respiratory Exam: Decreased Breath Sounds - Cardiovascular Exam Cardiovascular Exam: REGULAR RHYTHM - GI/Abdominal Exam GI & Abdominal Exam: Soft, Normal Bowel Sounds Assessment and Plan (1) Acute respiratory failure with hypoxemia Assessment & Plan: Patient extubated after weaning trial and requested by family Continue antibiotics for pneumonia Continue nebulizer treatment and steroids Seen by neurology Status: Acute (2) Lung cancer Status: Chronic
[2017-04-15] MEDS: Albuterol-Ipratrop 3 mg / 0.5 (3 ml) UD INH SCH (19:58)
[2017-04-16] MEDS: Albuterol-Ipratrop 3 mg / 0.5 (3 ml) UD INH SCH ×4 (01:04→20:02)
[2017-04-16] MEDS: Acetaminophen 650mg/20.3ml solution UD NG PRN ×2 (02:05→14:10)
[2017-04-16] MEDS: Piperacill/Tazo 3.375gm in Dex 3.375 GM/50 ML BAG IVPB SCH ×3 (05:20→22:00)
--- NOTE | 2017-04-16 08:09 | CP.PCM.PN ---
Subjective - Date & Time of Evaluation Date of Evaluation: 04/16/17 Time of Evaluation: 08:07 - Subjective Subjective: Ms. Coburn was seen and examined at the bedside. She is on ventimask with SPO2-100%. She is alert and able to follow simple commands such as opeing her eyes and mouth, moving her bilateral upper and lower extremities. She still has the episodes of confusion, but able to redirect accordingly.She is a DNR per family request. There was no untoward events overnight. Objective - Vital Signs/Intake and Output Vital Signs (last 24 hours): Temp Pulse Resp BP Pulse Ox 98 F 110 H 24 158/85 H 96 04/16/17 04:00 04/16/17 04:00 04/16/17 04:00 04/16/17 04:00 04/16/17 04:00 Intake and Output: 04/16/17 04/16/17 06:59 18:59 Intake Total 470 Output Total 700 Balance -230 - Medications Medications: Current Medications Acetaminophen (Tylenol 650mg/20.3ml Solution Ud) 650 mg NG Q6 PRN PRN Reason: Pain, moderate (4-7) Last Admin: 04/16/17 02:05 Dose: 650 mg Albuterol/Ipratropium (Combivent Respimat) 2 puff IH RQID PRN PRN Reason: Wheezing Albuterol/Ipratropium (Duoneb 3 Mg/0.5 Mg (3 Ml) Ud) 3 ml INH RQ6 AL Last Admin: 04/16/17 08:00 Dose: 3 ml Dexamethasone (Decadron Inj) 10 mg IVP Q8 [facility] Last Admin: 04/16/17 05:20 Dose: 10 mg Famotidine (Pepcid) 20 mg IVP Q12 [facility] Last Admin: 04/15/17 21:36 Dose: 20 mg Piperacillin Sod/Tazobactam Sod (Zosyn 3.375 Gm Iv Premix) 3.375 gm in 50 mls @ 100 mls/hr IVPB Q8 [facility] Last Admin: 04/16/17 05:20 Dose: 100 mls/hr Azithromycin 500 mg/ Sodium (Chloride) 250 mls @ 250 mls/hr IVPB DAILY [facility] Last Admin: 04/15/17 10:14 Dose: 250 mls/hr Levetiracetam 500 mg/ Sodium (Chloride) 55 mls @ 110 mls/hr IVPB Q12H [facility] Last Admin: 04/16/17 06:16 Dose: 110 mls/hr Vitamin A (Vitamin A & D Oint Ud Foilpak) 0.5 ea TOP Q4H PRN PRN Reason: dryness - Labs Labs: 04/15/17 06:43 04/15/17 06:36 PT 12.3 SECONDS (9.7-12.2) H 04/13/17 08:47 INR 1.1 04/13/17 08:47 APTT 20 SECONDS (21-34) L 04/13/17 08:47 - Constitutional Appears: No Acute Distress - Head Exam Head Exam: ATRAUMATIC - Eye Exam Additional comments: sluggish to react but equal in size. - Neurological Exam Neurological Exam: Awake Additional comments: he is alert and able to follow simple commands such as opeing her eyes and mouth , moving her bilateral upper and lower extremities.Sensation is intact. Assessment and Plan (1) Metastatic cancer to brain Assessment & Plan: Case discussed with Dr. Blanchard, continue all current medical regimen and discontinue MRI of the brain. There is no new recommendation from neurology. Status: Acute
[2017-04-16] MEDS: Azithromycin 500 MG in Sodium Chloride 0.9% 250 ML IVPB SCH (10:05)
--- NOTE | 2017-04-16 16:07 | CP.PCM.PN ---
Subjective - Date & Time of Evaluation Date of Evaluation: 04/16/17 Time of Evaluation: 10:00 - Subjective Subjective: EVENTS NOTED DNR IN EFFECT Objective - Vital Signs/Intake and Output Vital Signs (last 24 hours): Temp Pulse Resp BP Pulse Ox 98.1 F 117 H 21 159/82 H 97 04/16/17 08:00 04/16/17 08:00 04/16/17 08:00 04/16/17 08:00 04/16/17 08:00 Intake and Output: 04/16/17 04/16/17 06:59 18:59 Intake Total 470 Output Total 700 Balance -230 - Medications Medications: Current Medications Acetaminophen (Tylenol 650mg/20.3ml Solution Ud) 650 mg NG Q6 PRN PRN Reason: Pain, moderate (4-7) Last Admin: 04/16/17 14:10 Dose: 650 mg Albuterol/Ipratropium (Combivent Respimat) 2 puff IH RQID PRN PRN Reason: Wheezing Albuterol/Ipratropium (Duoneb 3 Mg/0.5 Mg (3 Ml) Ud) 3 ml INH RQ6 AL Last Admin: 04/16/17 14:08 Dose: 3 ml Dexamethasone (Decadron Inj) 10 mg IVP Q8 [facility] Last Admin: 04/16/17 14:07 Dose: 10 mg Famotidine (Pepcid) 20 mg IVP Q12 [facility] Last Admin: 04/16/17 10:04 Dose: 20 mg Piperacillin Sod/Tazobactam Sod (Zosyn 3.375 Gm Iv Premix) 3.375 gm in 50 mls @ 100 mls/hr IVPB Q8 [facility] Last Admin: 04/16/17 14:08 Dose: 100 mls/hr Azithromycin 500 mg/ Sodium (Chloride) 250 mls @ 250 mls/hr IVPB DAILY [facility] Last Admin: 04/16/17 10:05 Dose: 250 mls/hr Levetiracetam 500 mg/ Sodium (Chloride) 55 mls @ 110 mls/hr IVPB Q12H [facility] Last Admin: 04/16/17 06:16 Dose: 110 mls/hr Vitamin A (Vitamin A & D Oint Ud Foilpak) 0.5 ea TOP Q4H PRN PRN Reason: dryness - Labs Labs: 04/15/17 06:43 11/21/17 06:36 PT 12.3 SECONDS (9.7-12.2) H 04/13/17 08:47 INR 1.1 04/13/17 08:47 APTT 20 SECONDS (21-34) L 04/13/17 08:47 - Constitutional Appears: Cachectic, Chronically Ill - Head Exam Head Exam: NORMOCEPHALIC - Eye Exam Eye Exam: absent: Scleral icterus - ENT Exam ENT Exam: Mucous Membranes Dry - Neck Exam Neck Exam: absent: Lymphadenopathy - Respiratory Exam Respiratory Exam: Decreased Breath Sounds - Cardiovascular Exam Cardiovascular Exam: REGULAR RHYTHM - GI/Abdominal Exam GI & Abdominal Exam: Distended Assessment and Plan (1) Acute respiratory failure with hypoxemia Status: Acute (2) Anemia Status: Acute (3) CHF exacerbation Status: Acute (4) Hypoxia Status: Acute (5) Respiratory distress Status: Acute (6) Lung cancer Status: Chronic
--- NOTE | 2017-04-16 16:25 | CP.PCM.PN ---
Subjective - Date & Time of Evaluation Date of Evaluation: 04/16/17 Time of Evaluation: 14:30 - Subjective Subjective: Patient seen and examined. Open eyes to stimuli In [id number] respiratory distress DNR Seen by neurology Objective - Vital Signs/Intake and Output Vital Signs (last 24 hours): Temp Pulse Resp BP Pulse Ox 98.1 F 117 H 21 159/82 H 97 04/16/17 08:00 04/16/17 08:00 04/16/17 08:00 04/16/17 08:00 04/16/17 08:00 Intake and Output: 04/16/17 04/16/17 06:59 18:59 Intake Total 470 Output Total 700 Balance -230 - Medications Medications: Current Medications Acetaminophen (Tylenol 650mg/20.3ml Solution Ud) 650 mg NG Q6 PRN PRN Reason: Pain, moderate (4-7) Last Admin: 04/16/17 14:10 Dose: 650 mg Albuterol/Ipratropium (Combivent Respimat) 2 puff IH RQID PRN PRN Reason: Wheezing Albuterol/Ipratropium (Duoneb 3 Mg/0.5 Mg (3 Ml) Ud) 3 ml INH RQ6 AL Last Admin: 04/16/17 14:08 Dose: 3 ml Dexamethasone (Decadron Inj) 10 mg IVP Q8 [facility] Last Admin: 04/16/17 14:07 Dose: 10 mg Famotidine (Pepcid) 20 mg IVP Q12 [facility] Last Admin: 04/16/17 10:04 Dose: 20 mg Piperacillin Sod/Tazobactam Sod (Zosyn 3.375 Gm Iv Premix) 3.375 gm in 50 mls @ 100 mls/hr IVPB Q8 [facility] Last Admin: 04/16/17 14:08 Dose: 100 mls/hr Azithromycin 500 mg/ Sodium (Chloride) 250 mls @ 250 mls/hr IVPB DAILY [facility] Last Admin: 04/16/17 10:05 Dose: 250 mls/hr Levetiracetam 500 mg/ Sodium (Chloride) 55 mls @ 110 mls/hr IVPB Q12H [facility] Last Admin: 04/16/17 06:16 Dose: 110 mls/hr Vitamin A (Vitamin A & D Oint Ud Foilpak) 0.5 ea TOP Q4H PRN PRN Reason: dryness - Labs Labs: 04/15/17 06:43 04/15/17 06:36 PT 12.3 SECONDS (9.7-12.2) H 04/13/17 08:47 INR 1.1 04/13/17 08:47 APTT 20 SECONDS (21-34) L 04/13/17 08:47 - Head Exam Head Exam: ATRAUMATIC, NORMOCEPHALIC - ENT Exam ENT Exam: Mucous Membranes Moist - Neck Exam Neck Exam: Normal Inspection - Respiratory Exam Respiratory Exam: Decreased Breath Sounds - Cardiovascular Exam Cardiovascular Exam: Irregular Rhythm - GI/Abdominal Exam GI & Abdominal Exam: Soft Assessment and Plan (1) Acute respiratory failure with hypoxemia Assessment & Plan: Patient in distress secondary to pneumonia and COPD Metastatic disease DNR Prognosis poor Continue antibiotics Continue nebulizer treatment and steroids Status: Acute (2) Lung cancer Status: Chronic
--- NOTE | 2017-04-16 19:19 | CP.PCM.PN ---
Subjective - Date & Time of Evaluation Date of Evaluation: 04/16/17 Time of Evaluation: 13:00 - Subjective Subjective: clinically same Objective - Vital Signs/Intake and Output Vital Signs (last 24 hours): Temp Pulse Resp BP Pulse Ox 97.5 F L 110 H 22 154/85 H 96 04/16/17 16:00 04/16/17 16:00 04/16/17 16:00 04/16/17 16:00 04/16/17 16:00 Intake and Output: 04/16/17 04/17/17 18:59 06:59 Intake Total 820 Balance 820 - Medications Medications: Current Medications Acetaminophen (Tylenol 650mg/20.3ml Solution Ud) 650 mg NG Q6 PRN PRN Reason: Pain, moderate (4-7) Last Admin: 04/16/17 14:10 Dose: 650 mg Albuterol/Ipratropium (Combivent Respimat) 2 puff IH RQID PRN PRN Reason: Wheezing Albuterol/Ipratropium (Duoneb 3 Mg/0.5 Mg (3 Ml) Ud) 3 ml INH RQ6 AL Last Admin: 04/16/17 14:08 Dose: 3 ml Dexamethasone (Decadron Inj) 10 mg IVP Q8 [facility] Last Admin: 04/16/17 14:07 Dose: 10 mg Famotidine (Pepcid) 20 mg IVP Q12 [facility] Last Admin: 04/16/17 10:04 Dose: 20 mg Piperacillin Sod/Tazobactam Sod (Zosyn 3.375 Gm Iv Premix) 3.375 gm in 50 mls @ 100 mls/hr IVPB Q8 AL Last Admin: 04/16/17 14:08 Dose: 100 mls/hr Azithromycin 500 mg/ Sodium (Chloride) 250 mls @ 250 mls/hr IVPB DAILY AL Last Admin: 04/16/17 10:05 Dose: 250 mls/hr Levetiracetam 500 mg/ Sodium (Chloride) 55 mls @ 110 mls/hr IVPB Q12H AL Last Admin: 04/16/17 17:24 Dose: 110 mls/hr Vitamin A (Vitamin A & D Oint Ud Foilpak) 0.5 ea TOP Q4H PRN PRN Reason: dryness - Labs Labs: 04/15/17 06:43 04/15/17 06:36 PT 12.3 SECONDS (9.7-12.2) H 04/13/17 08:47 INR 1.1 04/13/17 08:47 APTT 20 SECONDS (21-34) L 04/13/17 08:47
[2017-04-17] MEDS: Albuterol-Ipratrop 3 mg / 0.5 (3 ml) UD INH SCH ×3 (02:00→19:08)
[2017-04-17] MEDS: Piperacill/Tazo 3.375gm in Dex 3.375 GM/50 ML BAG IVPB SCH ×3 (06:30→21:17)
[2017-04-17] MEDS: Azithromycin 500 MG in Sodium Chloride 0.9% 250 ML IVPB SCH (09:19)
--- NOTE | 2017-04-17 10:54 | CARD ---
APPROVED REPORT EKG Measurement Heart [id number] <Conclusion> Sinus tachycardia Possible Left atrial enlargement Low voltage QRS Borderline ECG
--- NOTE | 2017-04-17 12:21 | CP.CCUPN ---
CCU Subjective - Physician Review Subjective (Free Text): Patient seen and examined at bedside. Patient on bi-pap. Family ( and daughter at bedside. Patient not able to provide history due to underlying medical condition. 04/17/17 12:18 Critical Care Time Spent (in minutes): 45 CCU Objective - Vital Signs / Intake & Output Vital Signs (Last 4 hours): Vital Signs Pulse Resp BP Pulse Ox 04/17/17 11:02 99 H 04/17/17 10:00 100 H 22 145/95 H 100 Intake and Output (Last 8hrs): Intake & Output 04/16/17 04/17/17 04/17/17 22:59 06:59 14:59 Intake Total 350 700 Output Total 600 600 Balance -250 100 Weight 125 lb Intake: Intake, IV Amount 50 100 PortACath 50 50 RSC PortACath 50 Tube Feeding 200 600 Other 100 Output: Urine 600 600 Urethral ([place]) 600 600 Other: # Bowel Movements 0 - Physical Exam Physical Exam Limitations: Positive for: Altered Mental Status Pupils: Positive for: PERRL Conjunctiva: Positive for: Normal Mouth: Positive for: Moist Mucous Membranes Respiratory/Chest: Positive for: Good Air Exchange, Decreased Breath Sounds (RLL ), Rhonchi, Other (ronchi right lower lobe) Cardiovascular: Positive for: Regular Rate and Rhythm, Normal S1, S2 Abdomen: Positive for: Normal Bowel Sounds. Negative for: Tenderness, Distention, Peritoneal Signs Upper Extremity: Positive for: Edema. Negative for: Cyanosis Lower Extremity: Positive for: Edema. Negative for: CALF TENDERNESS Skin: Positive for: Warm, Dry Psychiatric: Positive for: Lethargic, Other (intubated) - Medications Active Medications: Active Medications Generic Name Dose Route Start Last Admin Trade Name Freq PRN Reason Stop Dose Admin Acetaminophen 650 mg 04/15/17 22:43 04/16/17 14:10 Tylenol 650mg/20.3ml Solution Ud NG 650 mg Q6 PRN Administration Pain, moderate (4-7) Albuterol/Ipratropium 2 puff 04/13/17 11:52 Combivent Respimat IH RQID PRN Wheezing Albuterol/Ipratropium 3 ml 04/15/17 20:00 04/17/17 08:00 Duoneb 3 Mg/0.5 Mg (3 Ml) Ud INH 3 ml RQ6 AL Administration Dexamethasone 10 mg 04/13/17 17:00 04/17/17 06:42 Decadron Inj IVP 10 mg Q8 AL Administration Famotidine 20 mg 04/13/17 22:00 04/17/17 09:19 Pepcid IVP 20 mg Q12 AL Administration Piperacillin Sod/Tazobactam Sod 3.375 gm in 50 mls @ 100 mls/hr 04/13/17 14: 00 04/17/17 06:30 Zosyn 3.375 Gm Iv Premix IVPB 100 mls/hr Q8 AL Administration Azithromycin 500 mg/ Sodium 250 mls @ 250 mls/hr 04/14/17 10:00 04/17/17 09: 19 Chloride IVPB 250 mls/hr DAILY AL Administration Levetiracetam 500 mg/ Sodium 55 mls @ 110 mls/hr 04/14/17 18:00 04/17/17 06: 00 Chloride IVPB 110 mls/hr Q12H AL Administration Vitamin A 0.5 ea 04/15/17 17:44 04/17/17 09:20 Vitamin A & D Oint Ud Foilpak TOP 0.5 ea Q4H PRN Administration dryness - Patient Studies Lab Studies: Microbiology Studies 04/13/17 08:30 Blood Culture - Preliminary Blood NO GROWTH AFTER 3 DAYS 04/13/17 09:00 Blood Culture - Preliminary Blood NO GROWTH AFTER 3 DAYS Fingerstick Blood Sugar Results: 167 Review of Systems - Review of Systems Review of Systems: limited 2nd underlying medical condition Assessment/Plan - Assessment and Plan (Free Text) Plan: 66 y/o female with pmx of COPD, Chronic heart failure, h/o lung cancer with mets on bi-pap. -Hypoxic and hypercapneic respiratory failure: family advised and requested no agressive measures, requested comfort measure including NO intubation, no chest compression and no artifical feeding - agreed with IV antibiotics and IVF -lung cancer: consider palliative eval for comfort measure. -continue DVT/PUD ppx Patient will not benefit from ICU level monitoring and her 9 month mortality will not change due to underlying laung cancer. Prognosis is poor. I have discussed at length with the family/health care proxy their request for comfort measure (DNR and DNI). The conversatoin had all the details of of a a conversatin to obtain an informed refusal to treat (intubation and posisle CPR), including but not limited to, disclosure of alternatives to Dnr/DNI. Risks and benefits to patient were explained; thereby permitting the family (/daughter) to make a ninformed decisoin. ICu team will respect family's decision DNR/DNI in effect. d/w nursing present during discussion/witness. cc time 45 minutes
--- NOTE | 2017-04-17 16:54 | CP.PCM.PN ---
Subjective - Date & Time of Evaluation Date of Evaluation: 04/17/17 Objective - Vital Signs/Intake and Output Vital Signs (last 24 hours): Temp Pulse Resp BP Pulse Ox 98.1 F 94 H 20 152/75 H 99 04/17/17 15:00 04/17/17 15:00 04/17/17 15:00 04/17/17 15:00 04/17/17 15:00 Intake and Output: 04/17/17 04/17/17 06:59 18:59 Intake Total 700 50 Output Total 600 Balance 100 50 - Medications Medications: Current Medications Acetaminophen (Tylenol 650mg/20.3ml Solution Ud) 650 mg NG Q6 PRN PRN Reason: Pain, moderate (4-7) Last Admin: 04/16/17 14:10 Dose: 650 mg Albuterol/Ipratropium (Combivent Respimat) 2 puff IH RQID PRN PRN Reason: Wheezing Albuterol/Ipratropium (Duoneb 3 Mg/0.5 Mg (3 Ml) Ud) 3 ml INH RQ6 AL Last Admin: 04/17/17 08:00 Dose: 3 ml Dexamethasone (Decadron Inj) 10 mg IVP Q8 AL Last Admin: 04/17/17 14:27 Dose: 10 mg Famotidine (Pepcid) 20 mg IVP Q12 AL Last Admin: 04/17/17 09:19 Dose: 20 mg Piperacillin Sod/Tazobactam Sod (Zosyn 3.375 Gm Iv Premix) 3.375 gm in 50 mls @ 100 mls/hr IVPB Q8 AL Last Admin: 04/17/17 14:33 Dose: 100 mls/hr Azithromycin 500 mg/ Sodium (Chloride) 250 mls @ 250 mls/hr IVPB DAILY AL Last Admin: 04/17/17 09:19 Dose: 250 mls/hr Levetiracetam 500 mg/ Sodium (Chloride) 55 mls @ 110 mls/hr IVPB Q12H AL Last Admin: 04/17/17 06:00 Dose: 110 mls/hr Vitamin A (Vitamin A & D Oint Ud Foilpak) 0.5 ea TOP Q4H PRN PRN Reason: dryness Last Admin: 04/17/17 09:20 Dose: 0.5 ea - Labs Labs: 04/15/17 06:43 04/15/17 06:36 PT 12.3 SECONDS (9.7-12.2) H 04/13/17 08:47 INR 1.1 04/13/17 08:47 APTT 20 SECONDS (21-34) L 04/13/17 08:47
[2017-04-18] MEDS: Albuterol-Ipratrop 3 mg / 0.5 (3 ml) UD INH SCH ×4 (01:37→20:58)
[2017-04-18] MEDS: Piperacill/Tazo 3.375gm in Dex 3.375 GM/50 ML BAG IVPB SCH ×3 (05:30→21:38)
--- NOTE | 2017-04-18 07:09 | CP.PCM.PN ---
Subjective - Date & Time of Evaluation Date of Evaluation: 04/18/17 Time of Evaluation: 07:06 - Subjective Subjective: Ms. Coburn was seen and examined at the bedside. She is on bipap for oxygen support. She is alert, but unable to verbalize any words. She is on DNR/ DNI. She is able to follow simple commands such as opening her eyes, mouth, raising her bilateral upper and lower extremities. There was no untoward events overnight. Objective - Vital Signs/Intake and Output Vital Signs (last 24 hours): Temp Pulse Resp BP Pulse Ox 99.2 F 96 H 20 146/84 96 04/18/17 00:37 04/18/17 05:14 04/18/17 00:37 04/18/17 00:37 04/18/17 00:37 Intake and Output: 04/18/17 04/18/17 06:59 18:59 Intake Total 100 Output Total 200 Balance -100 - Medications Medications: Current Medications Acetaminophen (Tylenol 650mg/20.3ml Solution Ud) 650 mg NG Q6 PRN PRN Reason: Pain, moderate (4-7) Last Admin: 04/16/17 14:10 Dose: 650 mg Albuterol/Ipratropium (Combivent Respimat) 2 puff IH RQID PRN PRN Reason: Wheezing Albuterol/Ipratropium (Duoneb 3 Mg/0.5 Mg (3 Ml) Ud) 3 ml INH RQ6 AL Last Admin: 04/18/17 01:37 Dose: 3 ml Dexamethasone (Decadron Inj) 10 mg IVP Q8 [place] Last Admin: 04/17/17 21:17 Dose: 10 mg Famotidine (Pepcid) 20 mg IVP Q12 AL Last Admin: 04/17/17 21:17 Dose: 20 mg Piperacillin Sod/Tazobactam Sod (Zosyn 3.375 Gm Iv Premix) 3.375 gm in 50 mls @ 100 mls/hr IVPB Q8 AL Last Admin: 04/18/17 05:30 Dose: 100 mls/hr Azithromycin 500 mg/ Sodium (Chloride) 250 mls @ 250 mls/hr IVPB DAILY [facility] Last Admin: 04/17/17 09:19 Dose: 250 mls/hr Levetiracetam 500 mg/ Sodium (Chloride) 55 mls @ 110 mls/hr IVPB Q12H AL Last Admin: 04/18/17 05:00 Dose: 110 mls/hr Vitamin A (Vitamin A & D Oint Ud Foilpak) 0.5 ea TOP Q4H PRN PRN Reason: dryness Last Admin: 04/17/17 09:20 Dose: 0.5 ea - Labs Labs: 04/15/17 06:43 04/15/17 06:36 PT 12.3 SECONDS (9.7-12.2) H 04/13/17 08:47 INR 1.1 04/13/17 08:47 APTT 20 SECONDS (21-34) L 04/13/17 08:47 - Constitutional Appears: Cachectic - Head Exam Head Exam: ATRAUMATIC - Neurological Exam Neurological Exam: Alert, Awake Neuro motor strength exam: Left Upper Extremity: 4, Right Upper Extremity: 4, Left Lower Extremity: 4, Right Lower Extremity: 4 Additional comments: She is able to follow commands such as opening her eyes, mouth, raising her bilateral upper and lower extremities. She is unable to verbalize any words. Assessment and Plan (1) Metastatic cancer to brain Assessment & Plan: Case discussed with Dr. Blanchard, continue all conservative management. There is no new recommendations from neurology. Status: Acute
[2017-04-18] MEDS: Azithromycin 500 MG in Sodium Chloride 0.9% 250 ML IVPB SCH (10:04)
--- NOTE | 2017-04-18 13:23 | CP.PCM.PN ---
Subjective - Date & Time of Evaluation Date of Evaluation: 04/18/17 Time of Evaluation: 09:20 - Subjective Subjective: patient seen and examined On BiPAP DNR DNI and for hospice evaluation Spoke with Objective - Vital Signs/Intake and Output Vital Signs (last 24 hours): Temp Pulse Resp BP Pulse Ox 97.5 F L 106 H 20 137/85 99 04/18/17 08:30 04/18/17 08:41 04/18/17 08:30 04/18/17 10:03 04/18/17 10:11 Intake and Output: 04/18/17 04/18/17 06:59 18:59 Intake Total 270 Output Total 400 Balance -130 - Medications Medications: Current Medications Acetaminophen (Tylenol 650mg/20.3ml Solution Ud) 650 mg NG Q6 PRN PRN Reason: Pain, moderate (4-7) Last Admin: 04/16/17 14:10 Dose: 650 mg Albuterol/Ipratropium (Combivent Respimat) 2 puff IH RQID PRN PRN Reason: Wheezing Albuterol/Ipratropium (Duoneb 3 Mg/0.5 Mg (3 Ml) Ud) 3 ml INH RQ6 AL Last Admin: 04/18/17 08:44 Dose: 3 ml Dexamethasone (Decadron Inj) 10 mg IVP Q8 AL Last Admin: 04/18/17 06:45 Dose: 10 mg Famotidine (Pepcid) 20 mg IVP Q12 AL Last Admin: 04/18/17 10:04 Dose: 20 mg Piperacillin Sod/Tazobactam Sod (Zosyn 3.375 Gm Iv Premix) 3.375 gm in 50 mls @ 100 mls/hr IVPB Q8 AL Last Admin: 04/18/17 05:30 Dose: 100 mls/hr Azithromycin 500 mg/ Sodium (Chloride) 250 mls @ 250 mls/hr IVPB DAILY [facility] Last Admin: 04/18/17 10:04 Dose: 250 mls/hr Levetiracetam 500 mg/ Sodium (Chloride) 55 mls @ 110 mls/hr IVPB Q12H [facility] Last Admin: 04/18/17 05:00 Dose: 110 mls/hr Vitamin A (Vitamin A & D Oint Ud Foilpak) 0.5 ea TOP Q4H PRN PRN Reason: dryness Last Admin: 04/17/17 09:20 Dose: 0.5 ea - Labs Labs: 04/15/17 06:43 04/15/17 06:36 PT 12.3 SECONDS (9.7-12.2) H 04/13/17 08:47 INR 1.1 04/13/17 08:47 APTT 20 SECONDS (21-34) L 04/13/17 08:47 Assessment and Plan (1) Acute respiratory failure with hypoxemia Status: Acute (2) Lung cancer Status: Chronic
--- NOTE | 2017-04-18 17:44 | CP.PCM.PN ---
Subjective - Date & Time of Evaluation Date of Evaluation: 04/18/17 Time of Evaluation: 08:00 - Subjective Subjective: clinicall same Objective - Vital Signs/Intake and Output Vital Signs (last 24 hours): Temp Pulse Resp BP Pulse Ox 98.3 F 110 H 20 155/85 H 96 04/18/17 15:00 04/18/17 15:00 04/18/17 15:00 04/18/17 15:00 04/18/17 15:00 Intake and Output: 04/18/17 04/18/17 06:59 18:59 Intake Total 270 300 Output Total 400 300 Balance -130 0 - Medications Medications: Current Medications Acetaminophen (Tylenol 650mg/20.3ml Solution Ud) 650 mg NG Q6 PRN PRN Reason: Pain, moderate (4-7) Last Admin: 04/16/17 14:10 Dose: 650 mg Albuterol/Ipratropium (Combivent Respimat) 2 puff IH RQID PRN PRN Reason: Wheezing Albuterol/Ipratropium (Duoneb 3 Mg/0.5 Mg (3 Ml) Ud) 3 ml INH RQ6 AL Last Admin: 04/18/17 14:15 Dose: 3 ml Dexamethasone (Decadron Inj) 10 mg IVP Q8 AL Last Admin: 04/18/17 13:55 Dose: 10 mg Famotidine (Pepcid) 20 mg IVP Q12 AL Last Admin: 04/18/17 10:04 Dose: 20 mg Piperacillin Sod/Tazobactam Sod (Zosyn 3.375 Gm Iv Premix) 3.375 gm in 50 mls @ 100 mls/hr IVPB Q8 AL Last Admin: 04/18/17 13:54 Dose: 100 mls/hr Azithromycin 500 mg/ Sodium (Chloride) 250 mls @ 250 mls/hr IVPB DAILY AL Last Admin: 04/18/17 10:04 Dose: 250 mls/hr Levetiracetam 500 mg/ Sodium (Chloride) 55 mls @ 110 mls/hr IVPB Q12H AL Last Admin: 04/18/17 17:08 Dose: 110 mls/hr Vitamin A (Vitamin A & D Oint Ud Foilpak) 0.5 ea TOP Q4H PRN PRN Reason: dryness Last Admin: 04/17/17 09:20 Dose: 0.5 ea - Labs Labs: 04/15/17 06:43 04/15/17 06:36 PT 12.3 SECONDS (9.7-12.2) H 04/13/17 08:47 INR 1.1 04/13/17 08:47 APTT 20 SECONDS (21-34) L 04/13/17 08:47 - Constitutional Appears: Well - Head Exam Head Exam: ATRAUMATIC, NORMAL INSPECTION, NORMOCEPHALIC - Eye Exam Eye Exam: EOMI, Normal appearance, PERRL Pupil Exam: NORMAL ACCOMODATION, PERRL - ENT Exam ENT Exam: Mucous Membranes Moist, Normal Exam - Neck Exam Neck Exam: Full ROM, Normal Inspection. absent: Lymphadenopathy - Respiratory Exam Respiratory Exam: Decreased Breath Sounds - Cardiovascular Exam Cardiovascular Exam: REGULAR RHYTHM, +S1, +S2 - GI/Abdominal Exam GI & Abdominal Exam: Soft, Diminished Bowel Sounds - Rectal Exam Rectal Exam: Deferred
--- NOTE | 2017-04-18 18:52 | CP.PCM.PN ---
Subjective - Date & Time of Evaluation Date of Evaluation: 04/18/17 Time of Evaluation: 10:00 - Subjective Subjective: weak and bedridden nad afebrile on bipap Objective - Vital Signs/Intake and Output Vital Signs (last 24 hours): Temp Pulse Resp BP Pulse Ox 98.3 F 110 H 20 155/85 H 96 04/18/17 15:00 04/18/17 15:00 04/18/17 15:00 04/18/17 15:00 04/18/17 15:00 Intake and Output: 04/18/17 04/18/17 06:59 18:59 Intake Total 270 300 Output Total 400 300 Balance -130 0 - Medications Medications: Current Medications Acetaminophen (Tylenol 650mg/20.3ml Solution Ud) 650 mg NG Q6 PRN PRN Reason: Pain, moderate (4-7) Last Admin: 04/16/17 14:10 Dose: 650 mg Albuterol/Ipratropium (Combivent Respimat) 2 puff IH RQID PRN PRN Reason: Wheezing Albuterol/Ipratropium (Duoneb 3 Mg/0.5 Mg (3 Ml) Ud) 3 ml INH RQ6 AL Last Admin: 04/18/17 14:15 Dose: 3 ml Dexamethasone (Decadron Inj) 10 mg IVP Q8 AL Last Admin: 04/18/17 13:55 Dose: 10 mg Famotidine (Pepcid) 20 mg IVP Q12 AL Last Admin: 04/18/17 10:04 Dose: 20 mg Piperacillin Sod/Tazobactam Sod (Zosyn 3.375 Gm Iv Premix) 3.375 gm in 50 mls @ 100 mls/hr IVPB Q8 [facility] Last Admin: 04/18/17 13:54 Dose: 100 mls/hr Azithromycin 500 mg/ Sodium (Chloride) 250 mls @ 250 mls/hr IVPB DAILY [facility] Last Admin: 04/18/17 10:04 Dose: 250 mls/hr Levetiracetam 500 mg/ Sodium (Chloride) 55 mls @ 110 mls/hr IVPB Q12H [facility] Last Admin: 04/18/17 17:08 Dose: 110 mls/hr Vitamin A (Vitamin A & D Oint Ud Foilpak) 0.5 ea TOP Q4H PRN PRN Reason: dryness Last Admin: 04/17/17 09:20 Dose: 0.5 ea - Labs Labs: 04/15/17 06:43 04/15/17 06:36 PT 12.3 SECONDS (9.7-12.2) H 04/13/17 08:47 INR 1.1 04/13/17 08:47 APTT 20 SECONDS (21-34) L 04/13/17 08:47 - Constitutional Appears: Non-toxic, Cachectic, Chronically Ill - Head Exam Head Exam: NORMOCEPHALIC - Eye Exam Eye Exam: PERRL - ENT Exam ENT Exam: Mucous Membranes Dry - Neck Exam Neck Exam: absent: Lymphadenopathy - Respiratory Exam Respiratory Exam: Decreased Breath Sounds - Cardiovascular Exam Cardiovascular Exam: REGULAR RHYTHM - GI/Abdominal Exam GI & Abdominal Exam: Distended, Soft Assessment and Plan (1) Acute respiratory failure with hypoxemia Status: Acute (2) Anemia Status: Acute (3) CHF exacerbation Status: Acute (4) Hypoxia Status: Acute (5) Respiratory distress Status: Acute (6) Lung cancer Status: Chronic
[2017-04-19 00:31] VITALS: O2SAT 98
[2017-04-19] MEDS: Albuterol-Ipratrop 3 mg / 0.5 (3 ml) UD INH SCH ×3 (01:55→13:10)
[2017-04-19] MEDS: Piperacill/Tazo 3.375gm in Dex 3.375 GM/50 ML BAG IVPB SCH ×2 (05:36→13:10)
[2017-04-19 08:46] VITALS: BP 165/92; PULSE 93; RESP 20; TEMP 97.8
[2017-04-19] MEDS: Azithromycin 500 MG in Sodium Chloride 0.9% 250 ML IVPB SCH (09:35)
--- NOTE | 2017-04-19 14:19 | CP.PCM.PN ---
Subjective - Date & Time of Evaluation Date of Evaluation: 04/19/17 Time of Evaluation: 08:00 - Subjective Subjective: clinically same Objective - Vital Signs/Intake and Output Vital Signs (last 24 hours): Temp Pulse Resp BP Pulse Ox 97.8 F 93 H 20 165/92 H 98 04/19/17 08:45 04/19/17 13:12 04/19/17 08:45 04/19/17 08:45 04/19/17 08:45 Intake and Output: 04/19/17 04/19/17 06:59 18:59 Intake Total 450 Output Total 550 500 Balance -100 -500 - Medications Medications: Current Medications Acetaminophen (Tylenol 650mg/20.3ml Solution Ud) 650 mg NG Q6 PRN PRN Reason: Pain, moderate (4-7) Last Admin: 04/16/17 14:10 Dose: 650 mg Albuterol/Ipratropium (Combivent Respimat) 2 puff IH RQID PRN PRN Reason: Wheezing Albuterol/Ipratropium (Duoneb 3 Mg/0.5 Mg (3 Ml) Ud) 3 ml INH RQ6 AL Last Admin: 04/19/17 13:10 Dose: 3 ml Dexamethasone (Decadron Inj) 10 mg IVP Q8 AL Last Admin: 04/19/17 13:10 Dose: 10 mg Famotidine (Pepcid) 20 mg IVP Q12 AL Last Admin: 04/19/17 09:02 Dose: 20 mg Azithromycin 500 mg/ Sodium (Chloride) 250 mls @ 250 mls/hr IVPB DAILY [facility] Last Admin: 04/19/17 09:35 Dose: 250 mls/hr Levetiracetam 500 mg/ Sodium (Chloride) 55 mls @ 110 mls/hr IVPB Q12H [facility] Last Admin: 04/19/17 06:13 Dose: 110 mls/hr Vitamin A (Vitamin A & D Oint Ud Foilpak) 0.5 ea TOP Q4H PRN PRN Reason: dryness Last Admin: 04/17/17 09:20 Dose: 0.5 ea - Labs Labs: 04/15/17 06:43 04/15/17 06:36 PT 12.3 SECONDS (9.7-12.2) H 04/13/17 08:47 INR 1.1 04/13/17 08:47 APTT 20 SECONDS (21-34) L 04/13/17 08:47 - Constitutional Appears: Well - Head Exam Head Exam: ATRAUMATIC, NORMAL INSPECTION, NORMOCEPHALIC - Eye Exam Eye Exam: EOMI, Normal appearance, PERRL Pupil Exam: NORMAL ACCOMODATION, PERRL - ENT Exam ENT Exam: Mucous Membranes Moist, Normal Exam - Neck Exam Neck Exam: Full ROM, Normal Inspection. absent: Lymphadenopathy - Respiratory Exam Respiratory Exam: Decreased Breath Sounds - Cardiovascular Exam Cardiovascular Exam: REGULAR RHYTHM, +S1, +S2 - GI/Abdominal Exam GI & Abdominal Exam: Soft, Diminished Bowel Sounds - Rectal Exam Rectal Exam: Deferred
== END 2017-04-19 15:45 | disposition hospice, inpatient (51) | DRG 208 ==
LOC: C.ER 08:25 → C.9E 09:21 → C.9I 10:31 → C.3T 04-17 13:26
PROVIDERS: ADMIT Internal Medicine Nephrology; ATTEND Internal Medicine Nephrology
PROC: 5A1945Z Respiratory Ventilation, 24-96 Consecutive Hours (ICD-10-PCS; principal; 2017-04-13)
DX: J96.01 Acute respiratory failure with hypoxia (principal); G93.6 Cerebral edema; J18.9 Pneumonia, unspecified organism; C79.31 Secondary malignant neoplasm of brain; C79.51 Secondary malignant neoplasm of bone; C34.90 Malignant neoplasm of unspecified part of unspecified bronchus or lung; J44.0 Chronic obstructive pulmonary disease with (acute) lower respiratory infection; D64.9 Anemia, unspecified; J44.1 Chronic obstructive pulmonary disease with (acute) exacerbation; K62.5 Hemorrhage of anus and rectum; I50.9 Heart failure, unspecified; G40.909 Epilepsy, unspecified, not intractable, without status epilepticus; F17.200 Nicotine dependence, unspecified, uncomplicated; E78.5 Hyperlipidemia, unspecified; E78.00 Pure hypercholesterolemia, unspecified; E03.9 Hypothyroidism, unspecified; M19.90 Unspecified osteoarthritis, unspecified site; R29.810 Facial weakness; Z66 Do not resuscitate; Z51.5 Encounter for palliative care; F17.210 Nicotine dependence, cigarettes, uncomplicated; Z85.3 Personal history of malignant neoplasm of breast; Z74.01 Bed confinement status

== ENCOUNTER 2017-04-19 15:13 | Inpatient (IN) | payer OTHER ==
[2017-04-19 16:49] VITALS: BMI 19.7
[2017-04-19] MEDS: Albuterol-Ipratrop 3 mg / 0.5 (3 ml) UD INH SCH (19:04)
[2017-04-20] MEDS: Albuterol-Ipratrop 3 mg / 0.5 (3 ml) UD INH SCH ×4 (02:33→20:21)
[2017-04-21 01:13] VITALS: O2SAT 98
[2017-04-21] MEDS: Albuterol-Ipratrop 3 mg / 0.5 (3 ml) UD INH SCH ×4 (02:03→19:22)
[2017-04-21 07:11] VITALS: BP 113/66; RESP 20
[2017-04-21 17:38] VITALS: PULSE 94; TEMP 97
--- NOTE | 2017-04-21 21:04 | CP.PCM.PRO ---
Pronouncement of Note - Clinical Findings Physical Exam: No Response Verbal/Painful Stimuli, Absent Peripheral Pulses{ Carotid & Femoral}, Absent Heart & Breath Sounds, No Pupillary Light Reflex, No Corneal Reflex, Pupils Fixed & Dilated, Absence of Vital Signs - Pronouncement Time Time of Pronouncement of : 20:47 - Notifications Pronouncement Notifications: Family Notified, Atending Notified Software Engineer Advisor Notified: No - [place]: [id number]
== END 2017-04-21 23:50 | DRG 951 ==
LOC: C.3T 15:13
PROVIDERS: ADMIT Internal Medicine Nephrology; ATTEND Internal Medicine Nephrology
DX: Z51.5 Encounter for palliative care (principal); C34.90 Malignant neoplasm of unspecified part of unspecified bronchus or lung; J96.00 Acute respiratory failure, unspecified whether with hypoxia or hypercapnia; G93.6 Cerebral edema; C79.31 Secondary malignant neoplasm of brain; Z66 Do not resuscitate